=== PATIENT | female | born 1955 | race Caucasian/White ===

== ENCOUNTER 2024-07-27 19:04 | Outpatient (CLI) | payer MEDICARE, SELFPAY | END 2024-07-27 19:05 | disposition home or self-care (01) | LOC: AMB 08-10 08:31 | PROVIDERS: PCP Family Medicine; Visit Provider Family Medicine | DX: F10.129 Alcohol abuse with intoxication, unspecified (principal) | CPT/HCPCS: A0998 ==

== ENCOUNTER 2024-08-08 18:06 | Inpatient (IN) | payer MEDICARE, SELFPAY ==
--- OUTSIDE RECORDS SUMMARY | 2024-08-08 18:09 | XMS_ITS | Clinical Summary ---
Author Organization [facility] Address [address] [place] [id number] Care Team Providers Care Dispatcher Bus [employer] Trol[employer] Name Role Phone Nilam Hernandez RN, BSN Unavailable [phone] Edwige Robledo DO Primary Care Provider [phone] Allergies Active Allergy Reactions Criticality Noted Date Comments Banana Anaphylaxis High 11/13/2019 Erythromycin 10/24/2008 Cephalexin Nausea And Vomiting 03/05/2009 Latex Hives 01/14/2009 Oxycodone Nausea Only 11/13/2019 Penicillins Hives 01/25/2007 Peanut Oil Anaphylaxis High 11/13/2019 Tetanus And Diphther. Tox (Pf) Angioedema 01/14 Medications ASPIRIN 81 MG TAB take 1 tablet (81mg) by oral route once daily 0 7 Active blood-glucose meterIndications:D iabetes mellitus without complication (HC) Dispense meter, E11.9 NIDDM type II - Test 1 time/day 1 Device 7 Active blood sugar diagnostic (BLOOD GLUCOSE TEST) stripIndications:D iabetes mellitus without complication (HC) Dispense item covered by pt ins. E11.9 NIDDM type II - Test 1 time/day 100 box 3 7 Active WalkerIndications: Acute respiratory failure with hypoxia (HC) Walker with front wheels for home use. 1 Device 0 Active hydrocortisone (HYTONE) 2.5 % ointmentIndication s:Rash apply to affected area(s) by topical route twice daily. 20 g 1 1 Active albuterol HFA (PRO-AIR; VENTOLIN; PROVENTIL) 90 mcg/actuation inhalerIndications :Mild intermittent asthma without complication (HC) Inhale 2 Puffs by mouth every 4 hours if needed for Shortness of Breath 1st choice or Wheezing 1st choice. 18 g 1 4 Active magnesium oxide (MAG-OX 400) 400 mg tabletIndications: Low magnesium levels Take 1 Tablet (400 mg) by mouth once daily. 100 Tablet 2 4 Active amitriptyline (ELAVIL) 25 mg tabletIndications: Neuropathy Take 1 Tablet (25 mg) by mouth at bedtime. 90 Tablet 2 4 Active atorvastatin (LIPITOR) 20 mg tabletIndications: Mixed hyperlipidemia Take 1 Tablet (20 mg) by mouth once daily. 90 Tablet 2 4 Active FLUoxetine (PROZAC) 40 mg capsuleIndications :Anxiety Take 1 Capsule (40 mg) by mouth at bedtime. 90 Capsule 2 4 Active amLODIPine (NORVASC) 5 mg tabletIndications: Hypertension, essential Take 1 Tablet (5 mg) by mouth two times daily. 180 Tablet 4 Active lisinopriL (PRINIVIL; ZESTRIL) 5 mg tabletIndications: Microalbuminuria,H ypertension, essential Take 1 Tablet (5 mg) by mouth once daily. 60 Tablet 4 Active Active Problems Problem Noted Date Diagnosed Date Chronic obstructive pulmonar y disease, unspecified COPD type 07/21/2023 Chronic GERD 02/11/2021 Altered mental status 01/30/2020 CKD (chronic kidney disease) stage 3, GFR 30-59 ml/min 08/12/2017 Anxiety 10/24/2015 Squamous cell carcinoma of lungs, bilateral - st age 5 04/17/2015 Overview (07/15/2021): Diagnosis 2016 Cisplatin/gemcitabine Lost to follow up - saw oncology 2017 [id number] Lost to follow up CT abdomen with bowel wall thickening Summer 2019 CT chest/abd pelvis subcentimeter mesenteric nodes nonspecific Brain MRI and PET scan unremarkable Low magnesium levels 04/20/2013 Overview (07/15/2021): Mildly low 01/2020 Significantly low during hospitalization with acute respiratory failure s/p surgery for bowel obstruction Started Magnesium supplement (stopped taking) Stopped PPI Alcoholism 11/24/2011 Mixed hyperlipidemia 04/17/2010 Breast cancer 01/20/2009 Overview (03/05/2009): Right breast cancer, now S/P bilateral mastectomy 01/30/09, Infiltrating ductal carcinoma, ER, NE and HER-2/bushra neg, 0/12 nodes Unspecified essential hypertension 12/05/2008 Type II or unspecified type diabetes mellitus without mention of complication, not stated as uncontrolled 01/28/2006 Resolved Problems Problem Noted Date Diagnosed Date Resolved Date Small bowel obstruction 01/30/2020 03/2 05/2023 Overview (07/15/2021): Surgery 01/2020 at [facility] with acute respiratory failure post op with transfer to [facility] 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 - laparotomy with take down of adhesions at [facility] 11/2020 Acute respiratory failure 01/30/2020 Overview (07/15/2021): S/P surgery for SBO Alcohol abuse 12/10/2009 12/23/2009 Vitamin D deficiency 09/08/2009 010 Immunizations Immunization Administration Dates Next Due COVID-19 VACCINE SPIKEVAX (M ODERNA 50MCG/0.5ML) 12YO+ PFS 07/21/2023 COVID-19 vaccine (Panjiva-Bio NTech 30mcg/0.3mL) PF, MDV 08/05/2020 Hepatitis B (Adult) 11/21/2013,05/30/2013,2012 Influenza, High-dose Inactivated 01/10/2017 Influenza, IIV4 02/11/2021, 0,02/27/2018,2016 Pneumococcal Conj 20-valent (Prevnar 20) 07/21/2023 Pneumococcal Poly,23-Valent (Pneumovax) 02/11/2021 Zoster (Shingrix-RZV, recombinant) 02/27/2021 Zoster (Zostavax-ZVL, live) 04/20/2013 Family History Relation Name Status Comments Brother 1 following kidne y problems. on dialysis Brother 2 Alive heart surg age 39 Sister mi Social History Tobacco Use Types Packs/Day Years Used Date Smoking Tobacco: Former Cigarettes Q uit: 12/14/2014 Smokeless Tobacco: Never Tobacco Cessation:Counseling Given: Not Answered Comments:quit Alcohol Use Standard Drinks/Week Comments Not Currently 3 (1 standard drink = 0.6 oz pur e alcohol) minimal currently PHQ-2 Answer Date Recorded PHQ-2 TOTAL SCORE 2 07/21/2023 Social Connections Answer Date Recorded Do you often feel lonely or isolated from those around you? 0 07/21/2023 Financial Resource Strain Answer Date R ecorded Difficulty of Paying Living Expenses 3 07/21/2023 Difficulty of Paying Living Expenses Not on file 07/21/2023 Food Insecurity Answer Date Recorded Do you worry your food will run out before you are able to buy more? 1 07/21/2023 Transportation Needs Answer Date Record ed Does lack of transportation keep you from medica l appointments? 1 07/21/2023 Does lack of transportation keep you from work, meetings or getting things that you need? 1 07/21/2023 Housing Stability Answer Date Recorded What is your housing situation today? 1 07/21/2023 Utilities Answer Date Recorded Do you have trouble paying f or utilities (for example, heat, electricity, water, phone)? 1 07/21/2023 Comments No Sex and Gender Information Value Date Recorded Sex Assigned at Not on file Legal Sex Female 5:26 AM [employer] Gender Identity Not on file Sexual Orientation Not on file Obstetrics History Para Term AB IAB SAB Ectopic Multiple Livin g Live Births 4 3 1 1 3 Date Outcome GA Total Labor Labor/2nd/3rd Weight Sex Type Anes PTL Alla A1 A5 Name Clin Para Para Para SAB Last Filed Vital Signs Vital Sign Reading Time Taken Comments Blood Pressure 155/85 07/21/2023 10:33 AM CDT Pulse 94 07/21/2023 10:33 AM CDT Temperature 37.1 C (98.8 F) 12/03/2020 3:39 PM CDT Respiratory Rate 20 02/05/2020 8:00 AM CDT Oxygen Saturation 98% 07/21/2023 10:45 AM CDT Inhaled Oxygen Concentration - - Weight 55.3 kg (122 lb) 07/21/2023 10:33 AM CDT Height 154.1 cm (5' 0.67) 02/11/2021 1:28 PM CD T Body Mass Index 23.3 02/11/2021 1:28 PM CDT Plan of Treatment Health Maintenance Due Date Last Done Comments RSV vaccine for adults or (1 - Risk 60-74 years 1-dose series) 2016 Colonoscopy through age 75 08/26/202008/26 [facility] DEXA/DXA scan for age 65+ 2021 Medicare Wellness for age 65+ 2021 Zoster (shingles) series for age 50+ (3 of 3) 04/24/2021 02/27/2021, 04/20/2013 BMI (ht and wt on same day) for age 18+ 02/11/2022 02/11/2021, 09/21/2018, 02/27/2018, Additional history exists COVID-19 vaccine series ( season) 2024 07/21/2023, 03/02/2021, 08/26/2020, Additional history exists Depression screening for age 12+ 07/21/2024 07/22/2023, 07/21/2023, 02/11/2021, Additional history exists Lipids for age 45-75 07/20/2028 07/21/2023, 12/03/2020, 10/02/2019, Additional history exists Tetanus booster Discontinued 12/24/2009 (Postponed) Hepatitis C screening for ag e 18-79 Completed 12/03/2020 Pneumococcal series for age 50+ Completed 4, 02/11/2021 Procedures Procedure Name Priority Date/Time Associated Diagnosis Comments LIPID PANEL W REFLEX MEASURED LDL Routine 07/21/2023 11:58 AM CDT Mixed hyperlipidemia ANTI HCV Routine 12/03/2020 5:05 PM CDT Need for hepatitis C screening test from Last 3 Months or Most Recently Relevant to Health Maintenance Results * LIPID PANEL W REFLEX MEASURED LDL (07/21/2023 11:58 AM CDT) CHOLESTEROL,TOTAL 180 100 - 199 mg/dL 07/21/2023 9:40 PM CDT [facility] Comment: Cholesterol, Total Reference Ranges Desirable <200 mg/dL Borderline 200-239 mg/dL High >=240 mg/dL TRIGLYCERIDES 64 <150 mg/dL 07/21/2023 9:40 PM CDT [facility] HDL CHOLESTEROL 108 >40 mg/dL 9:40 PM CDT [facility] NON-HDL CHOLESTEROL 72 <145 mg/dl 07/21/2023 9:40 PM CDT [facility] CHOL/HDL RATIO 1.67 <4.50 07/21/2023 9:40 PM CDT [facility] LDL CHOLESTEROL 59 <=130 mg/dL 07/21/2023 9:40 PM CDT [facility] VLDL CHOLESTEROL 13 <=30 mg/dL 07/21/2023 9:40 PM CDT [facility] PROVIDER ORDERED STATUS RANDOM 07/21/2023 9:40 PM CDT [facility] Blood BLOOD SPECIMEN / Unknown Venipuncture / Unknown 07/21/2023 11:58 AM CDT 07/21/2023 12:00 PM CDT us Edwige Robledo DO CHEMISTRY Final Resu lt [facility] [address] [place] [id number], * ANTI HCV (12/03/2020 5:05 PM CDT) HEPATITIS C ANTIBODY Non-React cindy Non-React cindy 12/04/2020 2:54 PM CDT [facility] Comment:Antibodies to HCV no t detected; does not exclude the possibility of exposure to HCV. Blood BLOOD SPECIMEN / Unknown Butterfly / Unknown 12/03/2020 5:05 PM CDT 12/03/2020 5:14 PM CDT Marisol Fox MD SEND OUTS Final Result [facility] [address] [place] [address], from Last 3 Months or Most Recently Relevant to Health Maintenance Insurance [employer] CHO[employer] PPO MR * Guarantor: RUMA SAMANIEGO Account Type Relation to Patient Date of Phone Billing Address Confidential [address] [facility] [address] [place] [address] [facility] Advance Directives * Full Code (Latest Code Status on File) Date Activated Date Inactivated Comments 01/29/2020 7:08 PM 02/05/2020 2:20 PM Question Answer Comments Code Status Discussion: Not Discussed Care Teams Dispatcher [employer] And Trolley Relationship Specialty Start Date End Date Edwige Robledo DO [address] [place] [address] PCP - General Family Practice 07/21/23 Nilam Hernandez, RN, BSN [address] [place] [id number] Mid Level Net Developer Registered Nurse 01/28/15
[2024-08-08 18:24] VITALS: BP 131/82; PULSE 114; RESP 20; TEMP 36.6; O2SAT 96
--- NOTE | 2024-08-08 18:54 | CRLHL7_ITS ---
For Patients: As a result of the Cures Act, medical imaging exams and procedure reports are released immediately into your electronic medical record. You may view this report before your referring provider. If you have questions, please contact your health care provider. INDICATION: Fall, right wrist pain, injury TECHNIQUE: Wrist radiograph 3 views right COMPARISON: None FINDINGS: Bone: Fracture deformity of the ulnar styloid and distal ulna is present and is of indeterminate age. Moderate diffuse osteopenia is present. Joint: Mild osteoarthritis at the radiocarpal joint with chondrocalcinosis is seen. Soft tissue: Unremarkable. No radiopaque foreign bodies are seen. IMPRESSION: 1. Fracture deformity of the ulnar styloid and distal ulna is present and is of indeterminate age. Correlation with physical exam for focal tenderness in this region is recommended to exclude an acute fracture. Dictated by Juanjose Malagon MD @ 08/08/2024 8:28:41 PM Dictated by: Juanjose Malagon MD @ 08/08/2024 20:28:46 (Electronically Signed)
--- NOTE | 2024-08-08 18:54 | CRLHL7_ITS ---
For Patients: As a result of the Century Cures Act, medical imaging exams and procedure reports are released immediately into your electronic medical record. You may view this report before your referring provider. If you have questions, please contact your health care provider. INDICATION: Fall, right shoulder pain, injury TECHNIQUE: Shoulder radiograph 2 views right COMPARISON: None FINDINGS: Bone: Severe diffuse osteopenia is present. A nonunited fracture deformity of the distal clavicle is suspected. There is a suture anchor present in the superolateral humeral head. Joint: The glenohumeral joint is unremarkable. The acromioclavicular joint has mild osteoarthritis. Soft tissue: Unremarkable. Patchy airspace opacities are seen within the small right lung. No radiopaque foreign bodies are seen. IMPRESSIONS: 1. No acute osseous injuries or abnormalities are noted. 2. Patchy airspace opacities are seen within the small right lung. This can be better assessed by chest radiograph. Dictated by Juanjose Malagon MD @ 08/08/2024 8:20:51 PM Dictated by: Juanjose Malagon MD @ 08/08/2024 20:20:54 (Electronically Signed)
--- NOTE | 2024-08-08 18:54 | CRLHL7_ITS ---
For Patients: As a result of the Cures Act, medical imaging exams and procedure reports are released immediately into your electronic medical record. You may view this report before your referring provider. If you have questions, please contact your health care provider. INDICATION: Fall with right elbow pain COMPARISON: 10/26/2017 right elbow radiographs TECHNIQUE: Two radiographic view(s) of the right elbow. FINDINGS: Status post screw fixation of a old radial head fracture. No evidence of hardware complication. Large elbow joint effusion. Slight cortical irregularity at the anterior portion of the radial head and/or the coronoid process of the ulna could represent a acute nondisplaced fracture versus age indeterminate posttraumatic or postoperative change. Correlation is recommended with point tenderness on physical exam at this region. Moderate degenerative change of the elbow. IMPRESSION: Status post screw fixation of a old radial head fracture. No evidence of hardware complication. Large elbow joint effusion. Slight cortical irregularity at the anterior portion of the radial head and/or the coronoid process of the ulna could represent a acute nondisplaced fracture versus age indeterminate posttraumatic or postoperative change. Correlation is recommended with point tenderness on physical exam at this region. Further evaluation with CT may also be helpful if clinically warranted. There is moderate degenerative change of the elbow. Dictated by Saul Barrera MD @ 08/08/2024 8:32:43 PM (Electronically Signed)
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
[2024-08-08 19:55] LABS: Basophils Absolute Auto 0.04 K/uL (0.00-0.30); Basophils Percent Auto 0.6 % (0.0-3.0); Eosinophils Percent Auto 4.4 % (0.0-7.0); Hematocrit 29.1 % (33.0-51.0); Hemoglobin* 9.4 gm/dL (12.0-16.0); Immature Granulocytes Abs Auto 0.01 K/uL (0.00-0.30); Immature Granulocytes Pct Auto 0.1 %; Lymphocytes Absolute Auto 1.47 K/uL (0.90-2.90); Lymphocytes Percent Auto 21.4 % (20-44); Mean Corpuscular HGB Conc 32 gm/dL (32-36); Mean Corpuscular Hemoglobin 32 pg (26-34); Mean Corpuscular Volume 99 fL (80-100); Monocytes Percent Auto 7.1 % (0.0-11.0); Neutrophils Absolute Auto 4.57 K/uL (1.7-7.0); Neutrophils Percent Auto 66.4 % (42.0-72.0); Platelet Count* 245 K/uL (140-440); RDW Coefficient of Variation % 12.2 % (11.5-15.5); Red Blood Count 2.95 m/uL (4.00-5.20); White Blood Count* 6.88 K/uL (4.50-11.00)
[2024-08-08 19:56] LABS: Chloride* 101 mmol/L (96-114)
[2024-08-08 19:57] LABS: Potassium* 3.9 mmol/L (3.6-5.1); Sodium* 129 mmol/L (135-149)
[2024-08-08 19:59] LABS: Blood Urea Nitrogen* 18 mg/dL (7-30); Creatinine* 2.3 mg/dL (0.5-1.5); Estimated Glomerular Filt Rate 23 ml/min
[2024-08-08 20:00] LABS: Anion Gap 17 mEq/L (7-15); Calcium* 8.2 mg/dL (8.4-10.6); Carbon Dioxide* 11 mmol/L (20-32); Ethanol* 0.11 % (0.01-0.03); Glucose* 79 mg/dL (60-115)
[2024-08-08 20:04] LABS: Slide Review Reflex No
--- NOTE | 2024-08-08 20:22 | CRLHL7_ITS ---
For Patients: As a result of the Cures Act, medical imaging exams and procedure reports are released immediately into your electronic medical record. You may view this report before your referring provider. If you have questions, please contact your health care provider. INDICATION: Chest pain TECHNIQUE: Chest radiograph 2 views COMPARISON: 12/12/2020 FINDINGS: The sensitivity and specificity of the exam are moderately limited by the patient`s body habitus. Mediastinum: The mediastinum is normal in appearance. The heart silhouette is normal in size and morphology. Lung: Small lung volumes with diffuse interstitial and ground-glass infiltrates seen bilaterally. Increased density is present in the lateral right lung base. No sign of pleural effusion seen. No pneumothorax is identified. Bone and Soft tissue: Unremarkable for age. IMPRESSIONS: 1. Small lung volumes with diffuse interstitial and ground-glass infiltrates seen bilaterally. Findings are likely due to interstitial lung disease such as fibrosis. 2. Increased density is present in the lateral right lung base. These findings can be seen with atelectasis and/or pneumonia. Dictated by Juanjose Malagon MD @ 08/08/2024 9:34:27 PM Dictated by: Juanjose Malagon MD @ 08/08/2024 21:34:52 (Electronically Signed)
[2024-08-08 20:28] LABS: Albumin* 4.2 g/dL (3.3-5.0)
[2024-08-08 20:31] LABS: Alanine Aminotransferase* 15 U/L (4-35); Alkaline Phosphatase* 106 U/L (40-150); Aspartate Amino Transferase* 31 U/L (12-35); Bilirubin Direct* 0.6 mg/dL (0.0-0.5); Bilirubin Total* 0.6 mg/dL (0.1-1.5); Total Protein* 7.8 g/dL (6.0-8.3)
[2024-08-08 20:52] VITALS: BP 133/66; PULSE 87; RESP 18; TEMP 36.8; O2SAT 96
[2024-08-08] MEDS: 0.9 % SODIUM CHLORIDE 1000 ml 1,000 ML IV (21:14)
[2024-08-08] MEDS: MAGNESIUM OXIDE 400 MG TABLET PO (21:14)
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
[2024-08-08] MEDS: diphenhydrAMINE 50 MG/ML inj 25 MG IVP (22:11)
[2024-08-08 22:18] VITALS: BP 138/68; PULSE 77; RESP 18; O2SAT 95
[2024-08-08] MEDS: MAGNESIUM IV 2 GM/50 ML PIGGYBACK IVPB (22:40)
[2024-08-08] MEDS: 5 % DEXTROSE IN LAC RINGER'S 1,000 ML 125 ML IV (22:40)
[2024-08-09] VITALS (17 sets, daily range): BP systolic 130–186; BP diastolic 74–98; PULSE 74–97; RESP 18–22; TEMP 36.6–37.7; O2SAT 91–98
[2024-08-09 00:02] LABS: Iron* 59 ug/dL (37-170)
[2024-08-09 00:08] LABS: HCO3 VBG 13 mmol/L (21-28); PCO2 VBG 30 mmHG (40-50); pH VBG 7.253 (7.32-7.43)
[2024-08-09] MEDS: LORazepam 2 MG/ML inj 0.5 MG IVP ×2 (00:43→06:10)
[2024-08-09] MEDS: diphenhydrAMINE 50 MG/ML inj 25 MG IVP (02:53)
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
[2024-08-09] MEDS: 5 % DEXTROSE IN LAC RINGER'S 1,000 ML 125 ML IV ×2 (06:51→17:36)
[2024-08-09 06:59] LABS: HCO3 VBG 17 mmol/L (21-28); PCO2 VBG 33 mmHG (40-50); PO2 VBG 41.2 mmHG (25-47); pH VBG 7.314 (7.32-7.43)
[2024-08-09 07:03] LABS: Basophils Absolute Auto 0.03 K/uL (0.00-0.30); Basophils Percent Auto 0.6 % (0.0-3.0); Eosinophils Absolute Auto 0.28 K/uL (0.00-0.50); Eosinophils Percent Auto 5.6 % (0.0-7.0); Hematocrit 24.4 % (33.0-51.0); Immature Granulocytes Abs Auto 0.01 K/uL (0.00-0.30); Immature Granulocytes Pct Auto 0.2 %; Lymphocytes Percent Auto 18.5 % (20-44); Mean Corpuscular HGB Conc 32 gm/dL (32-36); Mean Corpuscular Hemoglobin 32 pg (26-34); Mean Corpuscular Volume 98 fL (80-100); Monocytes Percent Auto 7.2 % (0.0-11.0); Neutrophils Absolute Auto 3.37 K/uL (1.7-7.0); Neutrophils Percent Auto 67.9 % (42.0-72.0); Platelet Count* 210 K/uL (140-440); RDW Coefficient of Variation % 12.4 % (11.5-15.5); Red Blood Count 2.48 m/uL (4.00-5.20); White Blood Count* 4.97 K/uL (4.50-11.00)
[2024-08-09 07:08] LABS: Hemoglobin* 7.9 gm/dL (12.0-16.0); Slide Review Reflex No
[2024-08-09 07:13] LABS: Appearance Urine Clear (Clear); Bilirubin Urine Negative (Negative); Blood Urine 1+ (Negative); Color Urine Yellow (Yellow); Glucose Urine Negative (Negative); Ketones Urine Negative (Negative); Leukocyte Esterase Urine 1+ (Negative); Nitrite Urine Negative (Negative); Protein Urine 1+ (Negative); Specific Gravity Urine <= 1.005 (1.000-1.030); Urobilinogen Urine 0.2 (0.2-1.0); pH Urine 5.5 (5.0-8.5)
[2024-08-09 07:18] LABS: Albumin* 3.4 g/dL (3.3-5.0); Chloride* 108 mmol/L (96-114); Sodium* 133 mmol/L (135-149)
[2024-08-09 07:20] LABS: INR 1.08 (0.91-1.10); Prothrombin Time 14.9 Seconds
[2024-08-09 07:21] LABS: Alanine Aminotransferase* 14 U/L (4-35); Alkaline Phosphatase* 112 U/L (40-150); Anion Gap 10 mEq/L (7-15); Aspartate Amino Transferase* 24 U/L (12-35); Bilirubin Direct* 0.5 mg/dL (0.0-0.5); Bilirubin Total* 0.6 mg/dL (0.1-1.5); Blood Urea Nitrogen* 17 mg/dL (7-30); Carbon Dioxide* 15 mmol/L (20-32); Creatinine* 1.8 mg/dL (0.5-1.5); Est. Creatinine Clearance* 24.94; Estimated Glomerular Filt Rate 30 ml/min; Total Protein* 6.6 g/dL (6.0-8.3)
[2024-08-09 07:22] LABS: Calcium* 8.1 mg/dL (8.4-10.6); Glucose* 108 mg/dL (60-115); Phosphorus* 2.4 mg/dL (2.5-4.5)
[2024-08-09 07:23] LABS: Amphetamine Screen Urine Negative (Negative); Barbiturate Screen Urine Negative (Negative); Benzodiazepines Screen Urine Negative (Negative); Cannabinoid Screen Urine POSITIVE (Negative); Cocaine Screen Urine Negative (Negative); Methadone Screen Urine Negative (Negative); Methamphetamines Screen Urine Negative (Negative); Opiate Screen Urine Negative (Negative); Oxycodone Screen Urine Negative (Negative); Phencyclidine Screen Urine Negative (Negative); Tricyclic Antidepressant Urine POSITIVE (Negative)
[2024-08-09 07:24] LABS: C Reactive Protein* 4.9 mg/dL (0.5-1.0)
[2024-08-09 07:25] LABS: Bacteria Urine Moderate; Squamous Epithelial Cell Urine Moderate (None-Few)
[2024-08-09 07:35] LABS: NT Pro B Type NatriureticPept* 1110 pg/mL
[2024-08-09] MEDS: THIAMINE 250 MG in 0.9 % SODIUM CHLORIDE 100 ml 100 ML 102.5 MG IVPB ×3 (09:12→20:55)
[2024-08-09] MEDS: FOLIC ACID 1 MG TABLET PO (09:12)
[2024-08-09] MEDS: SODIUM CHLORIDE 1 GM TABLET PO ×3 (09:13→17:38)
[2024-08-09] MEDS: MULTIVITAMIN/MINERALS 1 TABLET 1 TAB PO (09:13)
[2024-08-09] MEDS: CETIRIZINE HCL 10 MG TABLET PO (10:36)
--- NOTE | 2024-08-09 12:43 | CRLHL7_ITS ---
For Patients: As a result of the Century Cures Act, medical imaging exams and procedure reports are released immediately into your electronic medical record. You may view this report before your referring provider. If you have questions, please contact your health care provider. INDICATION: Right elbow pain and swelling. TECHNIQUE: Noncontrast CT of the right elbow. COMPARISON: Radiographs from 08/08/2024. FINDINGS: Remote screw fixation of radial head. Screws appear intact. Prior radial head fracture is healed. There is a fracture of the coronoid process of the proximal ulna which demonstrates 4.5 millimeters of displacement on sagittal image number 19 of series 7. This may reflect more of a subacute fracture though as there does appear to be some partial healing of the fragment. An elbow joint effusion is present. There are elbow joint degenerative changes. IMPRESSION: 1. Fracture of the coronoid process of the proximal ulna with 4.5 mm displacement. This may reflect more of a subacute fracture though as there does appear to be some partial healing of the fragment. 2. Remote healed fracture of the radial head with intact hardware. 3. Elbow joint degenerative changes with elbow joint effusion. Please note that all CT scans at this facility use dose modulation, iterative reconstruction, and/or weight-based dosing when appropriate to reduce radiation dose to as low as reasonably achievable. Dictated by Wang Acosta MD @ 08/09/2024 3:43:01 PM (Electronically Signed)
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
[2024-08-09 14:10] LABS: Chloride* 109 mmol/L (96-114); Sodium* 133 mmol/L (135-149)
[2024-08-09 14:11] LABS: Potassium* 3.8 mmol/L (3.6-5.1)
[2024-08-09 14:13] LABS: Lactate Dehydrogenase* 194 U/L (120-246)
[2024-08-09 14:14] LABS: Anion Gap 12 mEq/L (7-15); Blood Urea Nitrogen* 16 mg/dL (7-30); Calcium* 8.4 mg/dL (8.4-10.6); Carbon Dioxide* 12 mmol/L (20-32); Creatinine* 1.8 mg/dL (0.5-1.5); Est. Creatinine Clearance* 24.94; Estimated Glomerular Filt Rate 30 ml/min; Glucose* 124 mg/dL (60-115)
[2024-08-09 14:36] LABS: Basophils Absolute Auto 0.02 K/uL (0.00-0.30); Basophils Percent Auto 0.4 % (0.0-3.0); Eosinophils Absolute Auto 0.25 K/uL (0.00-0.50); Hemoglobin* 8.6 gm/dL (12.0-16.0); Immature Granulocytes Abs Auto 0.04 K/uL (0.00-0.30); Immature Granulocytes Pct Auto 0.8 %; Lymphocytes Percent Auto 19.2 % (20-44); Mean Corpuscular HGB Conc 32 gm/dL (32-36); Mean Corpuscular Hemoglobin 32 pg (26-34); Mean Corpuscular Volume 99 fL (80-100); Monocytes Percent Auto 6.7 % (0.0-11.0); Neutrophils Absolute Auto 3.42 K/uL (1.7-7.0); Neutrophils Percent Auto 67.9 % (42.0-72.0); Platelet Count* 221 K/uL (140-440); RDW Coefficient of Variation % 12.3 % (11.5-15.5); Red Blood Count 2.73 m/uL (4.00-5.20); White Blood Count* 5.04 K/uL (4.50-11.00)
[2024-08-09 14:39] LABS: Slide Review Reflex No
[2024-08-09 14:42] LABS: Immature Reticulocyte Fraction 15.4 % (3.0-15.9); Reticulocyte Hemoglobin Equivi 30.8 pg (29.0-35.0); Reticulocyte Percent 1.6 % (0.5-2.0); Reticulocytes Absolute 0.04 # (0.03-0.08)
[2024-08-09 15:04] LABS: Vitamin B12* 434 pg/mL (243-894)
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
[2024-08-09] MEDS: OMEPRAZOLE 20 MG CAPSULE DR PO ×2 (16:29→20:57)
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
--- NOTE | 2024-08-09 18:12 | PC.NURSE ---
End of shift. pt has been pleasant. no pain. Alert and orientated x4. she is up with 1 assist. NPO and later she would be regular diet. Right arm is in a sling. Right arm is an restricted extremity due to hx of breast cancer. IV is patent. she is a fall risk and alarms are on. she worked with PT and OT.
[2024-08-09 19:12] LABS: Magnesium* 1.9 mg/dL (1.5-2.6)
[2024-08-09 19:13] LABS: Iron* 44 ug/dL (37-170)
[2024-08-09 19:23] LABS: Percent Iron Saturation 19 % (20-50); Total Iron Binding Capacity 230 ug/dL (265-497)
[2024-08-09] MEDS: ENOXAPARIN 30 MG/0.3ML INJ SUBCUT (20:57)
[2024-08-09] MEDS: ACETAMINOPHEN 650 MG TABLET ER 1300 MG PO (21:52)
[2024-08-09] MEDS: diphenhydrAMINE 25 MG CAPSULE PO (21:53)
[2024-08-09] MEDS: clonazePAM 0.5 MG TABLET PO (21:53)
[2024-08-10] VITALS (24 sets, daily range): BP systolic 114–199; BP diastolic 70–116; PULSE 72–92; RESP 18–24; TEMP 36.4–37.7; O2SAT 94–99
[2024-08-10] MEDS: 5 % DEXTROSE IN LAC RINGER'S 1,000 ML 125 ML IV (01:59)
[2024-08-10] MEDS: diphenhydrAMINE 25 MG CAPSULE PO ×3 (04:08→22:59)
--- NOTE | 2024-08-10 05:57 | PC.NURSE ---
[id number]: Patient cooperative with cares. A&Ox3. PRN Tylenol administered for pain. RLE splinted and in a soft cast. Patient refuses sling. Affected arm elevated on pillows. CIWAs unremarkable. Benadryl x2 for itching. NPO@0000 for possible ortho sx. Family updated at bedside.
[2024-08-10 06:36] LABS: Basophils Percent Auto 0.6 % (0.0-3.0); Eosinophils Percent Auto 6.4 % (0.0-7.0); Hematocrit 22.7 % (33.0-51.0); Immature Granulocytes Pct Auto 0.3 %; Lymphocytes Percent Auto 27.9 % (20-44); Mean Corpuscular HGB Conc 32 gm/dL (32-36); Mean Corpuscular Hemoglobin 32 pg (26-34); Mean Corpuscular Volume 99 fL (80-100); Monocytes Percent Auto 8.1 % (0.0-11.0); Neutrophils Percent Auto 56.7 % (42.0-72.0); Platelet Count* 195 K/uL (140-440); RDW Coefficient of Variation % 12.4 % (11.5-15.5); Red Blood Count 2.29 m/uL (4.00-5.20); White Blood Count* 3.59 K/uL (4.50-11.00)
[2024-08-10 06:40] LABS: Hemoglobin* 7.3 gm/dL (12.0-16.0); Slide Review Reflex No
[2024-08-10 06:48] LABS: Chloride* 110 mmol/L (96-114)
[2024-08-10] MEDS: ACETAMINOPHEN 650 MG TABLET ER 1300 MG PO ×2 (06:48→22:59)
[2024-08-10 06:49] LABS: Potassium* 3.5 mmol/L (3.6-5.1); Sodium* 133 mmol/L (135-149)
[2024-08-10 06:52] LABS: Anion Gap 5 mEq/L (7-15); Blood Urea Nitrogen* 14 mg/dL (7-30); Calcium* 7.8 mg/dL (8.4-10.6); Carbon Dioxide* 18 mmol/L (20-32); Creatinine* 1.6 mg/dL (0.5-1.5); Est. Creatinine Clearance* 28.56; Estimated Glomerular Filt Rate 35 ml/min; Glucose* 182 mg/dL (60-115)
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
[2024-08-10] MEDS: THIAMINE 250 MG in 0.9 % SODIUM CHLORIDE 100 ml 100 ML 102.5 MG IVPB (08:32)
[2024-08-10] MEDS: OMEPRAZOLE 20 MG CAPSULE DR PO ×2 (09:35→20:35)
[2024-08-10] MEDS: MAGNESIUM OXIDE 400 MG TABLET PO (09:35)
[2024-08-10] MEDS: POTASSIUM BICARB 25 MEQ EFFERVESCENT TAB 50 MEQ PO (09:35)
[2024-08-10] MEDS: FOLIC ACID 1 MG TABLET PO (09:36)
[2024-08-10] MEDS: MULTIVITAMIN/MINERALS 1 TABLET 1 TAB PO (09:36)
[2024-08-10] MEDS: SODIUM CHLORIDE 1 GM TABLET PO ×3 (09:36→17:15)
[2024-08-10] MEDS: CETIRIZINE HCL 10 MG TABLET PO (09:36)
[2024-08-10] MEDS: SODIUM CHLORIDE 0.9 % (FLUSH) 10 ML SYRINGE 5 ML IVF ×2 (09:37→20:35)
--- NOTE | 2024-08-10 10:33 | P.ORPN_ITS ---
Subjective Subjective Time Seen by Provider: 07:45 Date Seen: 08/10/24 Principal diagnosis: Right elbow Interval history: Bernie is resting comfortably in her bed. She c/o diffuse right wrist and right elbow pain. She is unable to localize her pain. Bernie is comfortable in her posterior splint, which was left in place during our visit this morning. Her sling is also not in place and patient reports she does not like wearing her sling. Pain is well managed with rest, ice and Tylenol PRN. Denies fever, chills, numbness/tingling distally. Right elbow surgical history includes: radial head ORIF (2018). Ortho Exam Narrative Exam Narrative: Patient is alert and oriented x3. No acute distress. Converses with nonlabored breathing. Posterior splint left in place. No signs of splint irritation. Swelling present right hand and digits. CMS intact distally with 2+ radial pulse. [place], warm digits with brisk capillary refill. Sensation confirmed distally. Const Vital Signs, click to edit/add: Vital Signs - 24 hr 08/09/24 11:29 08/09/24 15:30 08/09/24 15:38 Temperature 99.1 F 98.9 F Pulse Rate 82 Pulse Rate [Pulse Oximeter] 78 82 Pulse Rate [Right Radial] 82 Respiratory Rate 18 18 Blood Pressure [Left Arm] 153/75 H 186/98 H Pulse Oximetry 97 98 Oxygen Delivery Method Room Air Room Air 08/09/24 16:00 08/09/24 17:17 08/09/24 20:33 Temperature 98.9 F 99.9 F H Pulse Rate Pulse Rate [Pulse Oximeter] 82 82 96 Pulse Rate [Right Radial] 82 82 Respiratory Rate 18 18 18 Blood Pressure [Left Arm] 160/82 H 177/84 H Pulse Oximetry 98 98 Oxygen Delivery Method Room Air Room Air 08/09/24 20:37 08/09/24 22:47 08/09/24 22:48 Temperature 99.9 F H 99.1 F 99.1 F Pulse Rate Pulse Rate [Pulse Oximeter] 96 96 Pulse Rate [Right Radial] 92 Respiratory Rate 18 18 18 Blood Pressure [Left Arm] 177/84 H 132/76 132/76 Pulse Oximetry 98 96 96 Oxygen Delivery Method Room Air Room Air Room Air 08/09/24 22:54 08/10/24 03:44 08/10/24 04:00 Temperature 97.6 F 97.6 F Pulse Rate 97 Pulse Rate [Pulse Oximeter] 76 76 Pulse Rate [Right Radial] 92 Respiratory Rate 20 20 Blood Pressure [Left Arm] 118/70 118/70 Pulse Oximetry 98 98 Oxygen Delivery Method Room Air Room Air 08/10/24 07:45 08/10/24 07:46 08/10/24 07:58 Temperature 97.8 F Pulse Rate 77 Pulse Rate [Pulse Oximeter] 80 80 Pulse Rate [Right Radial] 80 80 Respiratory Rate 18 18 Blood Pressure [Left Arm] 144/73 H Pulse Oximetry 94 Oxygen Delivery Method Room Air 08/10/24 09:58 Temperature 97.8 F Pulse Rate Pulse Rate [Pulse Oximeter] 80 Pulse Rate [Right Radial] 80 Respiratory Rate 18 Blood Pressure [Left Arm] 144/73 H Pulse Oximetry 94 Oxygen Delivery Method Room Air Documenting provider has reviewed patient's vital signs: yes Assessment and Plan Assessment and plan (1) Fracture of right ulnar styloid: Status: Acute (2) Elbow fracture, right: Status: Acute Plan IMAGING: Right elbow CT was reviewed dated 08/09/24. This shows: - A subacute fracture of the coronoid process of the proximal ulna with a 4.5 mm displacement and signs of healing. - A healed fracture of the radial head with intact hardware. - Elbow joint degenerative changes with elbow joint effusion. 2-view right elbow images were reviewed from [facility] dated 08/08/24. These show: Status post screw fixation of a old radial head fracture. No evidence of hardware complication. Large elbow joint effusion. Slight cortical irregularity at the anterior portion of the radial head and/or the coronoid process of the ulna could represent a acute nondisplaced fracture versus age indeterminate posttraumatic or postoperative change. There is moderate degenerative change of the elbow. 3-view right wrist images were reviewed from [facility] dated 08/08/24. These show: Fracture deformity of the ulnar styloid and distal ulna is present and is of indeterminate age. PLAN: Bernie's coronoid process fracture and distal ulna and ulnar styloid fracture may be treated non-operatively. Bernie will remain in her posterior splint 3-4 days. At that time, she will transition into a sling, which she will wear daily x 1 week, however I'd like Bernie to remove this sling to work on elbow motion as tolerated 3-5x/day. She will likely require outpatient OT. Bernie would also benefit from a right wrist brace after splint removal. For swelling reduction, I recommend rest, elevation and massaging edema proximally within her right fingers/hand. For pain management, I recommend rest, ice, Ibuprofen and/or Tylenol PRN. Bernie will follow-up with myself in 2 weeks for clinical re- evaluation. All questions were answered. Phone Orthopedics with any questions or concerns. Total Time Spent Total time spent: 20 minutes.
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
[2024-08-10 13:10] LABS: Folate, Serum >22.3 ng/mL (>=5.9)
--- NOTE | 2024-08-10 14:36 | PC.NURSE ---
End of shift. pt is still pleasant. no pain. some itching and she got meds for it. Alert and orientated x4. she is up with 1 assist. regular diet. she is eating drinking and voiding. will check resduial urine after next void,. Right arm is in a sling. Right arm is an restricted extremity due to hx of breast cancer. SL went bad and after a few attempts QUARRY MANAGER was able to start a SL in the left a/c. she is getting blood and doing a BP on her leg. . she is a fall risk and alarms are on. she worked with PT and OT.
--- NOTE | 2024-08-10 16:13 | PC.SOCIAL ---
Discharge planning: fabric worker foreman provided pt with an updated list of A.A. meetings in [place] per her request. fabric worker foreman also talked to the pt about going to a long term for short-term rehab after the hospital. Pt is willing to go to short-term rehab after the hospital. Pt has [employer] for insurance which only contracts with certain custodial facilities. fabric worker foreman left a message with Meghana in admissions at [facility] in [place] to see if they contract with [employer] and if so, do they have female short-term rehab beds available next week. Pt also okay'd this social work assistant to send a referral to [facility] and [facility] which are both [facility] and they both contract with [employer] insurance and may have openings next week. Social work to follow-up as needed.
[2024-08-10 17:28] LABS: Fecal Occult Blood* Negative (Negative)
[2024-08-10] MEDS: THIAMINE 100 MG TABLET PO (20:35)
[2024-08-10 21:38] LABS: Folate, RBC 872 ng/mL (>=366)
[2024-08-10] MEDS: clonazePAM 0.5 MG TABLET PO (22:59)
[2024-08-11] VITALS (11 sets, daily range): BP systolic 151–189; BP diastolic 78–94; PULSE 74–88; RESP 18–22; TEMP 36.6–37.2; O2SAT 93–99
[2024-08-11 05:03] LABS: Basophils Absolute Auto 0.03 K/uL (0.00-0.30); Basophils Percent Auto 0.6 % (0.0-3.0); Eosinophils Percent Auto 7.5 % (0.0-7.0); Hemoglobin* 9.4 gm/dL (12.0-16.0); Immature Granulocytes Abs Auto 0.01 K/uL (0.00-0.30); Immature Granulocytes Pct Auto 0.2 %; Lymphocytes Absolute Auto 1.19 K/uL (0.90-2.90); Lymphocytes Percent Auto 24.9 % (20-44); Mean Corpuscular HGB Conc 32 gm/dL (32-36); Mean Corpuscular Hemoglobin 31 pg (26-34); Mean Corpuscular Volume 97 fL (80-100); Monocytes Percent Auto 5.7 % (0.0-11.0); Neutrophils Absolute Auto 2.91 K/uL (1.7-7.0); Neutrophils Percent Auto 61.1 % (42.0-72.0); Platelet Count* 211 K/uL (140-440); RDW Coefficient of Variation % 13.1 % (11.5-15.5); White Blood Count* 4.77 K/uL (4.50-11.00)
[2024-08-11 05:05] LABS: HCO3 VBG 20 mmol/L (21-28); Ionized Calcium* 1.09 mmol/L (1.11-1.30); PCO2 VBG 37 mmHG (40-50); PO2 VBG 40.3 mmHG (25-47)
[2024-08-11 05:17] LABS: Chloride* 108 mmol/L (96-114); Potassium* 4.2 mmol/L (3.6-5.1); Sodium* 133 mmol/L (135-149)
[2024-08-11 05:19] LABS: Blood Urea Nitrogen* 16 mg/dL (7-30); Creatinine* 1.6 mg/dL (0.5-1.5); Estimated Glomerular Filt Rate 35 ml/min; Slide Review Reflex No
[2024-08-11 05:20] LABS: Anion Gap 7 mEq/L (7-15); Calcium* 7.9 mg/dL (8.4-10.6); Carbon Dioxide* 18 mmol/L (20-32); Glucose* 86 mg/dL (60-115); Magnesium* 1.1 mg/dL (1.5-2.6)
--- NOTE | 2024-08-11 05:25 | PC.NURSE ---
[id number]: Patient pleasant and cooperative. Elevated BP. MD aware, no new orders. A1/walker/GB. Showing increased strength since last shift with patient. CIWAs unremarkable. PRN Tylenol and elevation for pain management. Eating and voiding.
[2024-08-11 05:33] LABS: Hemoglobin A1C* 4.5 % (0-5.6)
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
[2024-08-11] MEDS: SODIUM CHLORIDE 0.9 % (FLUSH) 10 ML SYRINGE 5 ML IVF ×2 (09:09→21:07)
[2024-08-11] MEDS: MAGNESIUM IV 2 GM/50 ML PIGGYBACK IVPB (09:09)
[2024-08-11] MEDS: THIAMINE 100 MG TABLET PO ×3 (10:56→20:57)
[2024-08-11] MEDS: OMEPRAZOLE 20 MG CAPSULE DR PO ×2 (10:56→20:57)
[2024-08-11] MEDS: MULTIVITAMIN/MINERALS 1 TABLET 1 TAB PO (10:56)
[2024-08-11] MEDS: MAGNESIUM OXIDE 400 MG TABLET PO ×2 (10:56→20:57)
[2024-08-11] MEDS: FOLIC ACID 1 MG TABLET PO (10:57)
[2024-08-11] MEDS: CETIRIZINE HCL 10 MG TABLET PO (10:57)
[2024-08-11] MEDS: AMLODIPINE 5 MG TABLET PO ×2 (12:20→20:57)
[2024-08-11] MEDS: SODIUM CHLORIDE 1 GM TABLET PO ×2 (12:21→18:15)
[2024-08-11] MEDS: ACETAMINOPHEN 650 MG TABLET ER 1300 MG PO (18:19)
[2024-08-11] MEDS: ATORVASTATIN CALCIUM 10 MG TABLET 20 MG PO (20:57)
[2024-08-11] MEDS: FAMOTIDINE 20 MG TABLET PO (20:57)
[2024-08-11] MEDS: clonazePAM 0.5 MG TABLET PO (20:57)
[2024-08-11] MEDS: AMITRIPTYLINE 25 MG TABLET PO (20:58)
[2024-08-11] MEDS: diphenhydrAMINE 25 MG CAPSULE PO (22:41)
--- NOTE | 2024-08-11 23:22 | PC.NURSE ---
Patient continues to complain of pain in right arm. Arm is in a soft cast with a sling. Patient is complaint with elevating it. Her pain was effectively managed by PRN Tylenol. CIWA negative this shift. BP alittle bit elevated however patient has scheduled BP medication. Other vital signs stable. Family at bedside, family was concerned about patient's IV morphine order. Requesting that it be changed to something oral. RN notified MD about the family's concerns.
[2024-08-12 03:00] VITALS: RESP 20
[2024-08-12] MEDS: ACETAMINOPHEN 650 MG TABLET ER 1300 MG PO (05:23)
[2024-08-12 05:48] LABS: Ionized Calcium* 1.14 mmol/L (1.11-1.30)
[2024-08-12 05:49] LABS: Basophils Percent Auto 0.5 % (0.0-3.0); Eosinophils Percent Auto 9.1 % (0.0-7.0); Hemoglobin* 10.9 gm/dL (12.0-16.0); Immature Granulocytes Pct Auto 0.7 %; Mean Corpuscular HGB Conc 32 gm/dL (32-36); Mean Corpuscular Hemoglobin 31 pg (26-34); Mean Corpuscular Volume 97 fL (80-100); Monocytes Percent Auto 5.7 % (0.0-11.0); Platelet Count* 253 K/uL (140-440); RDW Coefficient of Variation % 13.2 % (11.5-15.5); White Blood Count* 4.19 K/uL (4.50-11.00)
[2024-08-12 05:50] LABS: Slide Review Reflex No
--- NOTE | 2024-08-12 05:51 | PC.NURSE ---
[id number]: Patient pleasant and cooperative. A&Ox3. PRN Tylenol for pain relief. Benadryl x1 for itching. A1/walker. R. arm in soft cast C/D/I. Appeared to sleep well during noc. Eating and voiding.
[2024-08-12 06:13] LABS: Chloride* 107 mmol/L (96-114); Potassium* 4.4 mmol/L (3.6-5.1); Sodium* 136 mmol/L (135-149)
[2024-08-12 06:14] LABS: Albumin* 3.6 g/dL (3.3-5.0)
[2024-08-12 06:16] LABS: Anion Gap 9 mEq/L (7-15); Blood Urea Nitrogen* 19 mg/dL (7-30); Calcium* 8.6 mg/dL (8.4-10.6); Carbon Dioxide* 20 mmol/L (20-32); Creatinine* 1.6 mg/dL (0.5-1.5); Est. Creatinine Clearance* 28.05; Estimated Glomerular Filt Rate 35 ml/min; Glucose* 95 mg/dL (60-115); Magnesium* 1.7 mg/dL (1.5-2.6)
[2024-08-12 06:17] LABS: Alanine Aminotransferase* 13 U/L (4-35); Alkaline Phosphatase* 154 U/L (40-150); Aspartate Amino Transferase* 30 U/L (12-35); Bilirubin Direct* 0.5 mg/dL (0.0-0.5); Bilirubin Total* 0.5 mg/dL (0.1-1.5)
[2024-08-12 07:45] VITALS: BP 152/84; PULSE 78; RESP 16; TEMP 36.7; O2SAT 96
[2024-08-12] MEDS: MAGNESIUM OXIDE 400 MG TABLET PO ×2 (09:39→21:56)
[2024-08-12] MEDS: SODIUM CHLORIDE 1 GM TABLET PO ×3 (09:40→18:53)
[2024-08-12] MEDS: AMLODIPINE 5 MG TABLET PO ×2 (09:40→21:58)
[2024-08-12] MEDS: CETIRIZINE HCL 10 MG TABLET PO (09:40)
[2024-08-12] MEDS: OMEPRAZOLE 20 MG CAPSULE DR PO ×2 (09:40→22:01)
[2024-08-12] MEDS: FAMOTIDINE 20 MG TABLET PO ×2 (09:40→21:59)
[2024-08-12] MEDS: THIAMINE 100 MG TABLET PO ×3 (09:40→21:57)
[2024-08-12] MEDS: FLUOXETINE HCL 20 MG CAPSULE 40 MG PO (09:40)
[2024-08-12] MEDS: SODIUM CHLORIDE 0.9 % (FLUSH) 10 ML SYRINGE 5 ML IVF ×2 (09:41→22:04)
[2024-08-12] MEDS: MULTIVITAMIN/MINERALS 1 TABLET 1 TAB PO (09:41)
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
[2024-08-12] MEDS: FOLIC ACID 1 MG TABLET PO (10:00)
[2024-08-12 11:00] VITALS: BP 161/94; PULSE 87; RESP 16; TEMP 36.9; O2SAT 97
[2024-08-12] MEDS: ACETAMINOPHEN 325 MG TABLET 975 MG PO ×2 (13:34→21:56)
[2024-08-12 15:00] VITALS: BP 177/116; PULSE 83; RESP 18; TEMP 37; O2SAT 97
--- NOTE | 2024-08-12 18:21 | PC.NURSE ---
Per request from patient's son and daughter, pt was asked when stepped out of room if she wanted to be here. Pt stated that she did want her here with her. Son was contacted via telephone and informed of pt's response.
--- NOTE | 2024-08-12 18:22 | PC.NURSE ---
Numerous family members were at the bedside this afternoon and loud voices were heard with the door closed. After, this was noticed, The family was politely asked to leave.
[2024-08-12 19:00] VITALS: BP 168/94; PULSE 84; RESP 17; TEMP 36.6; O2SAT 100
--- NOTE | 2024-08-12 19:27 | PC.NURSE ---
The patient is pleasant and cooperative with cares, rates pain at a tolerable level, controlled with Tylenol. The patients is present at the bedside throughout the day. SBA to Restroom with 4wrw. Call light within reach. Lo WALKER BSN
[2024-08-12] MEDS: ATORVASTATIN CALCIUM 10 MG TABLET 20 MG PO (21:56)
[2024-08-12] MEDS: clonazePAM 0.5 MG TABLET PO (21:59)
[2024-08-12] MEDS: diphenhydrAMINE 25 MG CAPSULE PO (21:59)
[2024-08-12] MEDS: AMITRIPTYLINE 25 MG TABLET PO (22:01)
[2024-08-12 22:06] VITALS: BP 160/101; PULSE 81; RESP 20; TEMP 36.8; O2SAT 97
[2024-08-13 01:55] VITALS: BP 147/96; PULSE 83; RESP 17; TEMP 36.6; O2SAT 97
[2024-08-13] MEDS: ACETAMINOPHEN 325 MG TABLET 975 MG PO ×2 (06:21→13:28)
[2024-08-13 06:43] LABS: Basophils Percent Auto 0.8 % (0.0-3.0); Eosinophils Percent Auto 9.6 % (0.0-7.0); Hematocrit 33.2 % (33.0-51.0); Hemoglobin* 10.7 gm/dL (12.0-16.0); Immature Granulocytes Pct Auto 0.3 %; Lymphocytes Percent Auto 29.2 % (20-44); Mean Corpuscular HGB Conc 32 gm/dL (32-36); Mean Corpuscular Hemoglobin 31 pg (26-34); Mean Corpuscular Volume 97 fL (80-100); Monocytes Percent Auto 7.1 % (0.0-11.0); Platelet Count* 240 K/uL (140-440); RDW Coefficient of Variation % 13.1 % (11.5-15.5); Red Blood Count 3.42 m/uL (4.00-5.20); White Blood Count* 3.94 K/uL (4.50-11.00)
[2024-08-13 06:44] LABS: Slide Review Reflex No
--- NOTE | 2024-08-13 06:50 | PC.NURSE ---
Shift note ([id number]): Patient pleasant, alert and oriented. Stand by assist with 4-wheeled rolling walker. ?C/O pain in right arm with movement this morining. Given Scheduled Tylenol at that time.?
[2024-08-13 06:58] LABS: Chloride* 108 mmol/L (96-114); Potassium* 4.1 mmol/L (3.6-5.1); Sodium* 136 mmol/L (135-149)
[2024-08-13 07:00] VITALS: BP 144/76; PULSE 74; RESP 18; TEMP 36.5; O2SAT 96
[2024-08-13 07:01] LABS: Anion Gap 9 mEq/L (7-15); Calcium* 8.6 mg/dL (8.4-10.6); Carbon Dioxide* 19 mmol/L (20-32); Glucose* 85 mg/dL (60-115); Magnesium* 1.3 mg/dL (1.5-2.6)
[2024-08-13 07:13] LABS: Blood Urea Nitrogen* 18 mg/dL (7-30); Creatinine* 1.6 mg/dL (0.5-1.5); Est. Creatinine Clearance* 28.12; Estimated Glomerular Filt Rate 35 ml/min
--- NOTE | 2024-08-13 07:41 | PC.NURSE ---
End of shift ([id number]) note continued: Patient's BPs elevated at 168/94, 160/101 and 147/[address] Cárdenas updated at this time.
[2024-08-13] MEDS: MAGNESIUM IV 2 GM/50 ML PIGGYBACK IVPB (08:21)
[2024-08-13] MEDS: FLUOXETINE HCL 20 MG CAPSULE 40 MG PO (08:34)
[2024-08-13] MEDS: AMLODIPINE 5 MG TABLET PO (08:34)
[2024-08-13] MEDS: lisinopriL 5 MG TABLET PO (08:34)
[2024-08-13] MEDS: FOLIC ACID 1 MG TABLET PO (08:34)
[2024-08-13] MEDS: THIAMINE 100 MG TABLET PO ×2 (08:34→13:29)
[2024-08-13] MEDS: SODIUM CHLORIDE 1 GM TABLET PO ×2 (08:35→12:05)
[2024-08-13] MEDS: FAMOTIDINE 20 MG TABLET PO (08:35)
[2024-08-13] MEDS: CETIRIZINE HCL 10 MG TABLET PO (08:38)
[2024-08-13] MEDS: OMEPRAZOLE 20 MG CAPSULE DR PO (08:38)
[2024-08-13] MEDS: MAGNESIUM OXIDE 400 MG TABLET 800 MG PO ×2 (08:38→13:29)
[2024-08-13] MEDS: SODIUM CHLORIDE 0.9 % (FLUSH) 10 ML SYRINGE 5 ML IVF (08:38)
[2024-08-13] MEDS: MULTIVITAMIN/MINERALS 1 TABLET 1 TAB PO (08:38)
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
[2024-08-13 11:00] VITALS: BP 142/78; PULSE 96; RESP 16; TEMP 36.9; O2SAT 98
--- NOTE | 2024-08-13 11:06 | PC.SOCIAL ---
Discharge planning: Pt is no longer in need of short-term rehab and will be discharging home today with her . Pt also stated several times to staff here that she does not want hospital staff reaching out or giving any information to her children. Social work to follow-up as needed.
--- NOTE | 2024-08-13 14:41 | PC.NURSE ---
Pt discharged at 1437 via wheelchair, accompanied by . Back to home. IV removed. Discharge forms signed. Pain controlled, Pt in good condition.
== END 2024-08-13 14:37 | disposition home or self-care (01) | DRG 923 ==
LOC: ED 21:58 → MEDSURG 22:28
PROVIDERS: Family Medicine; Admitting Provider Family Medicine; Emergency Provider Student in an Organized Health Care Education/Training Program; PCP Family Medicine; Visit Provider Family Medicine
DX: T74.11XA Adult physical abuse, confirmed, initial encounter (principal); S42.401A Unspecified fracture of lower end of right humerus, initial encounter for closed fracture; E87.1 Hypo-osmolality and hyponatremia; N17.9 Acute kidney failure, unspecified; E87.21 Acute metabolic acidosis; N18.4 Chronic kidney disease, stage 4 (severe); S52.611A Displaced fracture of right ulna styloid process, initial encounter for closed fracture; S52.041A Displaced fracture of coronoid process of right ulna, initial encounter for closed fracture; Y04.2XXA Assault by strike against or bumped into by another person, initial encounter; Y07.010 Husband, current, perpetrator of maltreatment and neglect; Y93.E1 Activity, personal bathing and showering; Y92.002 Bathroom of unspecified non-institutional (private) residence as the place of occurrence of the external cause; F10.229 Alcohol dependence with intoxication, unspecified; Y90.5 Blood alcohol level of 100-119 mg/100 ml; Z63.72 Alcoholism and drug addiction in family; E83.42 Hypomagnesemia; D53.8 Other specified nutritional anemias; D63.1 Anemia in chronic kidney disease; I12.9 Hypertensive chronic kidney disease with stage 1 through stage 4 chronic kidney disease, or unspecified chronic kidney disease; J44.9 Chronic obstructive pulmonary disease, unspecified; Z87.891 Personal history of nicotine dependence; L29.9 Pruritus, unspecified; Z90.13 Acquired absence of bilateral breasts and nipples; Z87.19 Personal history of other diseases of the digestive system; Z85.3 Personal history of malignant neoplasm of breast; Z85.110 Personal history of malignant carcinoid tumor of bronchus and lung
CPT/HCPCS: 36415; 36430; 51798; 71046; 73030; 73070; 73110; 73200; 80048; 80069; 80076; 80306; 81001; 81003; 82077; 82270; 82330; 82607; 82728; 82746; 82747; 82803; 83036; 83540; 83550; 83605; 83615; 83735; 83880; 84443; 85025; 85045; 85610; 86140; 86850; 86900; 86901; 86922; 87086; 97110; 97116; 97161; 97165; 97530; 97535; 99284; 99285; A4565; A9153; A9270; J1200; J1650; J2060; J3411; J3475; J7030; P9016

== ENCOUNTER 2024-08-28 12:21 | Outpatient (CLI) | payer MEDICARE, SELFPAY ==
--- NOTE | 2024-08-28 14:00 | CT_ITS ---
Patient: RUMA CAMPBELL Facility:?[facility] Patient ID:?[id number] Site Patient ID:?[id number]. Site :?[id number] Study:?CT-Chest/Abd/Pelvis WITH 57 CC ISOVUE 370-08/28/2024 2:17:30 PM Ordering Physician:Violetta Alejo Final Report: INDICATION: History of breast and lung cancer, follow-up TECHNIQUE: CT chest, abdomen and pelvis acquired with 57 cc Isovue 370 IV contrast. COMPARISON: CT chest abdomen and pelvis 12/07/2020 FINDINGS: CHEST Lungs and pleura: Progressed subpleural predominant reticulation and ground- glass, asymmetrically involving the upper and lower right lung. No suspicious nodules. No effusions, thickening, or pneumothorax. Heart and vasculature: Heart size is normal. Thoracic aorta and pulmonary artery are normal in caliber. Moderate coronary artery calcifications. Lymph node/mediastinum: No pathologic mediastinal, hilar, or axillary adenopathy. Unchanged prominent bilateral axillary lymph nodes with normal morphology. Stable top-normal right pretracheal lymph node measuring 0.9 cm. Increased subcarinal lymph node measuring 1 cm (2/38), previously 0.8 cm Chest wall: Bilateral breast implants. Bones: No suspicious bone lesions. Postsurgical changes of the right humeral head. Healed bilateral rib fractures and left inferior scapular fracture. Subacute appearing fracture of the left posterior 11th rib. ABDOMEN AND PELVIS: Liver: Normal in caliber and attenuation. No masses. Focal fatty deposition along the falciform ligament Gallbladder and bile ducts: Prior cholecystectomy. Pancreas: Unremarkable. Spleen: Normal in caliber. No masses. Adrenal glands: Unremarkable. No masses. Kidneys: Normal in caliber. No suspicious masses. GI tract: Postsurgical changes of the right colon with patent anastomosis. The bowel is normal in caliber and appearance. No sign of mass or inflammation. Vasculature: Unremarkable. Mesenteric arteries are patent. Subtle irregular areas of hypoattenuation within the superior mesenteric vein are favored secondary to mixing artifact. Lymph nodes: No lymphadenopathy. Omentum/peritoneum/retroperitoneum/abdominal wall: No masses or infiltration. No free air or significant free fluid. Pelvic organs: Unremarkable. Bones: Age-indeterminate, although chronic appearing, compression deformity of L1. This finding is new compared to CT from 2020. Multilevel degenerative change of the spine. IMPRESSION: 1. No definite evidence of metastatic disease in the chest abdomen and pelvis. Slightly increased subcarinal lymph node, and additional stable prominent scattered mediastinal and axillary lymph nodes are nonspecific and possibly reactive. 2. Progressed pulmonary fibrosis, asymmetrically involving the right lung. 3. Subacute appearing left posterior 11th rib fracture. Multiple interval, although chronic appearing, bilateral rib, left inferior scapular, and L1 fractures. Please note that all CT scans at this facility use dose modulation, iterative reconstruction, and/or weight-based dosing when appropriate to reduce radiation dose to as low as reasonably achievable. Dictated by Jocy Diallo MD @ 08/30/2024 8:47:20 AM (Electronic Signature)
== END 2024-08-28 12:22 | disposition home or self-care (01) ==
PROVIDERS: PCP Family Medicine; Visit Provider Internal Medicine Hematology & Oncology
DX: C34.32 Malignant neoplasm of lower lobe, left bronchus or lung (principal); J84.10 Pulmonary fibrosis, unspecified; C50.919 Malignant neoplasm of unspecified site of unspecified female breast; M48.56XA Collapsed vertebra, not elsewhere classified, lumbar region, initial encounter for fracture; M84.48XA Pathological fracture, other site, initial encounter for fracture
CPT/HCPCS: 71260; 74177; Q9967

== ENCOUNTER 2024-09-18 09:55 | Outpatient (CLI) | payer MEDICARE, SELFPAY ==
--- NOTE | 2024-09-18 10:15 | CRLHL7_ITS ---
For Patients: As a result of the Century Cures Act, medical imaging exams and procedure reports are released immediately into your electronic medical record. You may view this report before your referring provider. If you have questions, please contact your health care provider. INDICATION: Lung cancer. TECHNIQUE: Brain MRI with and without contrast. 15 cc of Dotarem gadolinium based intravenous contrast administered. COMPARISON: Brain MRI from 11/13/2019. FINDINGS: No evidence of acute ischemia. No evidence of acute or chronic intracranial blood products. No mass or pathologic intracranial enhancement. Patchy FLAIR hyperintensities within the deep/periventricular supratentorial white matter and brainstem, typical for chronic microvascular ischemic change. Moderate generalized parenchymal volume loss. No hydrocephalus or extra-axial collections. The pituitary gland, parasellar structures and optic chiasm are normal. Posterior fossa is normal. All the major intracranial vascular structures demonstrate normal flow-related signal. The orbital contents are normal. No calvarial or skull base marrow signal abnormality. No obstructive sinus disease. No extracranial soft tissue findings. IMPRESSION: 1. No acute infarction or other acute intracranial pathology. 2. No mass or pathologic intracranial enhancement. 3. Glng-ar-eczoozob chronic microvascular ischemic changes and moderate generalized parenchymal volume loss. Dictated by Yifan Wright MD @ 09/18/2024 3:36:38 PM (Electronically Signed)
== END 2024-09-18 09:56 | disposition home or self-care (01) ==
LOC: MRI 09:56
PROVIDERS: PCP Family Medicine; Visit Provider Internal Medicine Hematology & Oncology
DX: C34.32 Malignant neoplasm of lower lobe, left bronchus or lung (principal); I67.82 Cerebral ischemia; C50.919 Malignant neoplasm of unspecified site of unspecified female breast
CPT/HCPCS: 70553; A9575

== ENCOUNTER 2024-09-20 14:04 | Outpatient (CLI) | payer MEDICARE, SELFPAY ==
--- NOTE | 2024-09-20 14:30 | CRLHL7_ITS ---
For Patients: As a result of the 21st Century Cures Act, medical imaging exams and procedure reports are released immediately into your electronic medical record. You may view this report before your referring provider. If you have questions, please contact your health care provider. 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 Remote history of right-sided breast cancer (2008) with prior bilateral mastectomies. Patient is referred for further characterization. TECHNIQUE: Radiopharmaceutical: 13.5 mCi of 18F-FDG Intravenous injection site: Left hand Uptake time: 67 minutes Blood glucose level at the time of injection: 63 mg/dL Field of view: Skull base to mid-thighs CT protocol: The low-dose, free-breathing, noncontrast CT performed as part of this study is designed for the purposes of attenuation correction and lesion localization, and it is neither sufficient, nor it should be substituted for diagnostic purposes. COMPARISON: CT chest abdomen pelvis 08/28/2024 and 12/07/2020. PET-CT 11/22/2019 FINDINGS: Physiologic background liver standardized uptake value (SUV mean and SUV max) reported for comparison between PET studies: 2.9 and 3.6. Visualized head and neck: Senescent changes in the brain and posterior fossa with no abnormal uptake. No enlarged or hypermetabolic cervical chain lymph nodes. Lungs: Respiratory motion artifact. No measurable hypermetabolic lung nodules. Progressive bilateral areas of parenchymal and peripheral/subpleural reticular opacities most pronounced throughout the right upper lobe, anterior right middle lobe, superior segment right lower lobe and left upper lobe. For example: Anterior inferior right middle lobe reticular opacity, SUV max 3.0 (fused image 91). Right upper lobe parenchymal opacity with air bronchograms, SUV max 3.8 (fused image 78). Superior segment right lower lobe reticular opacity, SUV max 2.7. Attention on imaging follow-up. Few micro nodules without uptake too small to characterize. Thoracic lymph nodes: More conspicuous paratracheal, subcarinal and bilateral axillary lymph nodes with variable uptake compared to prior PET-CT. For example: Lower right paratracheal lymph node, 0.5 cm short axis, SUV max 2.4 (fused image 84). Previously 1.8. Subcarinal lymph node 0.7 cm short axis, SUV max 2.8 (fused image 93). Previously 1.2. Right axillary lymph node, 0.6 cm short axis, SUV max 4.4 (fused image 78).. Left axillary lymph node, 0.5 cm short axis, SUV max 4.6 (fused image 78). Other chest findings:Scattered diffuse coronary vascular calcifications. Prior bilateral mastectomies with intact though less well distended bilateral breast implants. Small hiatal hernia. -generalized esophageal uptake with no localized abnormality on noncontrast CT is nonspecific, possibly reactive/inflammatory or related to reflux. Hepatobiliary: No measurable tracer avid liver lesions. Prior cholecystectomy. Spleen: No abnormal uptake. No splenomegaly. Pancreas: No abnormal uptake. No adjacent inflammatory change. Adrenal glands: Similar bilateral adrenal configuration. No abnormal uptake. Kidneys and bladder: No abnormal uptake or obstruction. Partially distended bladder. Bowel and peritoneum: Prior laparotomy with postsurgical changes involving the right colon including a patent anastomosis in the right mid abdomen. Limited gastric distention with no asymmetric uptake or outlet obstruction. Areas of uptake in the distal small bowel and portions of fluid-filled ascending and transverse colon demonstrate no gross abnormality on noncontrast CT. Diverticulosis involving the descending and sigmoid colon. No adjacent inflammatory change or abnormal uptake. Linear uptake in the lower rectum/anal canal with no obvious noncontrast CT abnormality. Possibly reactive or physiologic. Pelvic organs: No abnormal uptake. Abdominopelvic lymph nodes: No enlarged or hypermetabolic upper abdominal, mesenteric, retroperitoneal or pelvic lymph nodes. Slightly more conspicuous right lower quadrant lymph nodes with no suspicious uptake (fused image 201). Uptake within nonenlarged bilateral inguinal lymph nodes is nonspecific and misregistered due to motion. For example: Right inguinal lymph node, 0.6 cm short axis, SUV max 3.2 (fused image 250). Left inguinal lymph node, 0.6 cm short axis, SUV max 4.3 (fused image 244). Musculoskeletal, soft tissues, skin: No new aggressive, lytic or expansile osseous lesions with uptake. Variable uptake within post traumatic deformities involving the bilateral clavicles, shoulders/scapula and bilateral ribs related to prior injuries. No obvious lytic or aggressive bony lesions. For example: Left anterior 3rd rib deformity with callus, SUV max 3.8. Chronic appearing endplate plate deformities involving T6 and T11. Chronic wedge-shaped L1 compression deformity. Degenerative type uptake within the shoulders and spine. Other: Diffuse aortoiliac vascular calcifications. Small right paramidline fat containing lower ventral abdominal wall hernia. Prior right shoulder rotator cuff repair. IMPRESSION: 1. Progressive bilateral parenchymal and areas of peripheral/subpleural curvilinear reticular opacities in each lung with [id number] uptake most likely secondary to progressive pulmonary fibrosis and scarring. No measurable hypermetabolic lung nodules. Attention on imaging follow-up. 2. Variable [id number] uptake within nonenlarged bilateral axillary, lower right paratracheal, subcarinal and bilateral inguinal lymph nodes. Consider directed ultrasound with FNA as indicated. 3. Prior bilateral mastectomies with intact though less well distended implants. No abnormal chest soft tissue or axillary soft tissue uptake. 4. No definite tracer avid osseous lesions suspicious for metastatic disease. Multifocal bony deformities involving the bilateral clavicles, shoulders, each scapula and bilateral ribs with variable uptake in various stages of healing are most consistent with posttraumatic deformities. Correlate with recent prior injuries. 5. No abnormal uptake in the soft tissues of the neck, solid organs of the upper abdomen, abdominal or mesenteric lymph nodes . 6. Other nonacute findings as detailed in the body of the report. Dictated by Fran Whitehead MD @ 09/25/2024 10:38:39 AM (Electronically Signed)
== END 2024-09-20 14:05 | disposition home or self-care (01) ==
LOC: RAD 14:05
PROVIDERS: PCP Family Medicine; Visit Provider Internal Medicine Hematology & Oncology
DX: C34.32 Malignant neoplasm of lower lobe, left bronchus or lung (principal)
CPT/HCPCS: 78815; A9552

== ENCOUNTER 2024-09-25 11:00 | Outpatient (RCR) | payer MEDICARE, SELFPAY ==
--- NOTE | 2024-10-02 14:51 | ONC.NURNOTE ---
Pt called [facility] this morning to cancel her ultrasounds for today. She did not want to reschedule. RN notified clinic [facility] and the [facility] Radiology Dept.
== END 2025-03-03 23:59 | disposition home or self-care (01) ==
LOC: CCIC 11:00
PROVIDERS: PCP Family Medicine; Visit Provider Internal Medicine Hematology & Oncology
DX: C34.32 Malignant neoplasm of lower lobe, left bronchus or lung (principal); Z85.3 Personal history of malignant neoplasm of breast; Z17.1 Estrogen receptor negative status [ER-]; Z90.13 Acquired absence of bilateral breasts and nipples
CPT/HCPCS: 99213; 99214; G0463

== ENCOUNTER 2024-10-10 11:43 | Outpatient (CLI) | payer MEDICARE, SELFPAY ==
--- NOTE | 2024-10-10 12:15 | CRLHL7_ITS ---
For Patients: As a result of the Century Cures Act, medical imaging exams and procedure reports are released immediately into your electronic medical record. You may view this report before your referring provider. If you have questions, please contact your health care provider. Indication: bilateral inguinal lymph nodes per PET SCAN Technique: Ray scale and color Doppler ultrasound of the right inguinal soft tissues performed. Comparison: CT PET 09.20.24 Findings: Normal morphologic appearance of the right inguinal lymph nodes noted. Normal internal vascularity and normal central fatty jessica. No cortical thickening. Impression: Normal right inguinal lymph nodes. No suspicious findings. FNA not indicated. Dictated by Wilmer Romo MD @ 10/10/2024 5:10:21 PM (Electronically Signed)
--- NOTE | 2024-10-10 12:15 | CRLHL7_ITS ---
For Patients: As a result of the Century Cures Act, medical imaging exams and procedure reports are released immediately into your electronic medical record. You may view this report before your referring provider. If you have questions, please contact your health care provider. Indication: bilateral inguinal lymph nodes per PET SCAN Technique: Ray scale and color Doppler ultrasound of the left inguinal soft tissues performed. Comparison: CT PET 09.20.24 Findings: Normal morphologic appearance of the left inguinal lymph nodes noted. Normal internal vascularity and normal central fatty jessica. No cortical thickening. Impression: Normal left inguinal lymph nodes. No suspicious findings. FNA not indicated. Dictated by Wilmer Romo MD @ 10/10/2024 5:11:44 PM (Electronically Signed)
== END 2024-10-10 11:44 | disposition home or self-care (01) ==
LOC: US 11:43
PROVIDERS: PCP Family Medicine; Visit Provider Internal Medicine Hematology & Oncology
DX: R59.0 Localized enlarged lymph nodes (principal); C34.32 Malignant neoplasm of lower lobe, left bronchus or lung
CPT/HCPCS: 76882

== ENCOUNTER 2024-10-24 15:02 | Emergency (ER) | payer MEDICARE, SELFPAY ==
--- OUTSIDE RECORDS SUMMARY | 2024-10-24 15:05 | XMS_ITS | Clinical Summary ---
Author Organization [facility] Address [address] [place] [address] Care Team Providers Care Railway Station Manager Name Role Phone Nilam Hernandez RN, BSN Unavailable Unavail Edwige Burt DO Primary Care Provider [phone] Allergies Active Allergy Reactions Criticality Noted Date Comments Banana Anaphylaxis High 11/13/2019 Erythromycin 10/24/2008 Cephalexin Nausea And Vomiting 03/05/2009 Latex Hives 01/14/2009 Oxycodone Nausea Only 11/13/2019 Penicillins Hives 01/25/2007 Peanut Oil Anaphylaxis High 11/13/2019 Sherrard Rash 08/08/2024 Tetanus And Diphther. Tox (Pf) Angioedema 01/14 Medications ASPIRIN 81 MG TAB take 1 tablet (81mg) by oral route once daily 0 01/26/20 07 Active blood-glucose meterIndications:D iabetes mellitus without complication (HC) Dispense meter, E11.9 NIDDM type II - Test 1 time/day 1 Device 07/16/19 17 Active blood sugar diagnostic (BLOOD GLUCOSE TEST) stripIndications:D iabetes mellitus without complication (HC) Dispense item covered by pt ins. E11.9 NIDDM type II - Test 1 time/day 100 box 3 07/16/19 17 Active WalkerIndications: Acute respiratory failure with hypoxia (HC) Walker with front wheels for home use. 1 Device 02/04/20 20 Active albuterol HFA (PRO-AIR; VENTOLIN; PROVENTIL) 90 mcg/actuation inhalerIndications :Mild intermittent asthma without complication (HC) Inhale 2 Puffs by mouth every 4 hours if needed for Shortness of Breath 1st choice or Wheezing 1st choice. 18 g 1 07/21/19 24 Active magnesium oxide (MAG-OX 400) 400 mg tabletIndications: Low magnesium levels Take 1 Tablet (400 mg) by mouth once daily. 100 Tablet 2 07/22/19 24 Active amitriptyline (ELAVIL) 25 mg tabletIndications: Neuropathy Take 1 Tablet (25 mg) by mouth at bedtime. 90 Tablet 2 08/15/19 Active FLUoxetine (PROZAC) 40 mg capsuleIndications :Anxiety Take 1 Capsule (40 mg) by mouth at bedtime. 90 Capsule 2 08/15/19 24 Active famotidine 20 mg tabletIndications: Itching Take 1 Tablet (20 mg) by mouth two times daily. 60 Tablet 3 10/24/19 Active cetirizine 10 mg tabletIndications: Itching Take 1 Tablet (10 mg) by mouth once daily. 30 Tablet 3 10/24/19 25 Active hydrocortisone 2.5 % ointmentIndication s:Itching Apply topically to affected area(s) 2 times daily if needed for Itching. 20 g 1 10/24/19 25 Active lisinopriL 5 mg tabletIndications: Microalbuminuria,H ypertension, essential Take 1 Tablet (5 mg) by mouth once daily. 30 Tablet 2 10/24/19 25 Active amLODIPine 5 mg tabletIndications: Hypertension, essential Take 1 Tablet (5 mg) by mouth two times daily. 180 Tablet 10/24/19 25 Active atorvastatin 20 mg tabletIndications: Mixed hyperlipidemia Take 1 Tablet (20 mg) by mouth once daily. 90 Tablet 2 10/24/19 25 Active hydrocortisone (HYTONE) 2.5 % ointmentIndication s:Rash apply to affected area(s) by topical route twice daily. 20 g 1 08/07/19 21 025 Discontin ued(Reord er (E-cancel not sent)) atorvastatin (LIPITOR) 20 mg tabletIndications: Mixed hyperlipidemia Take 1 Tablet (20 mg) by mouth once daily. 90 Tablet 2 08/15/19 24 025 Discontin ued(Reord er (E-cancel not sent)) amLODIPine (NORVASC) 5 mg tabletIndications: Hypertension, essential Take 1 Tablet (5 mg) by mouth two times daily. 180 Tablet 10/25/19 24 025 Discontin ued(Reord er (E-cancel not sent)) lisinopriL (PRINIVIL; ZESTRIL) 5 mg tabletIndications: Microalbuminuria,H ypertension, essential Take 1 Tablet (5 mg) by mouth once daily. 60 Tablet 10/31/19 24 025 Discontin ued(Reord er (E-cancel not sent)) Active Problems Problem Noted Date Diagnosed Date Stage 4 chronic kidney disease 08/20/2024 Chronic obstructive pulmonar y disease, unspecified COPD type 07/21/2023 Chronic GERD 02/11/2021 Altered mental status 01/30/2020 CKD (chronic kidney disease) stage 3, GFR 30-59 ml/min 08/12/2017 Anxiety 10/24/2015 Squamous cell carcinoma of lungs, bilateral - st age 5 04/17/2015 Overview (07/15/2021): Diagnosis 2015 Cisplatin/gemcitabine Lost to follow up - saw oncology 2017 [id number] Lost to follow up CT abdomen with [...] bilateral mastectomy 01/30/09, Infiltrating ductal carcinoma, ER, [facility] and HER-2/bushra neg, 0/12 nodes Unspecified essential hypertension 12/05/2008 Type II or unspecified type diabetes mellitus without mention of complication, not stated as uncontrolled 01/28/2006 Resolved Problems Problem Noted Date Diagnosed Date Resolved Date Small bowel obstruction 01/30/202007/01 Overview (07/15/2021): Surgery 01/2020 at [facility] with acute respiratory failure post op with transfer to [facility] 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 - laparotomy with take down of adhesions at [facility] 11/2020 Acute respiratory failure 01/30/2020 Overview (07/15/2021): S/P surgery for SBO Alcohol abuse 12/10/2009 12/23/2009 Vitamin D deficiency 09/08/2009 010 Encounters Date Type Department Care Team Description 10/24/2024 Telephone [facility] [address] [place] [address] Edwige Robledo, Results 10/24/2024 Phone Office Visit [facility] [address] [place] [address] Edwige Robledo, Error-please disregard (opened in error) 10/23/2024 2:50 PM CDT Office Visit [facility] [address] [place] [address] Edwige Robledo DO Rash (has had itchy rash on both arms and chest/trunk, ongoing for undetermined amount of time (possibly 3 months)) 10/23/2024 Travel 10/22/2024 Telephone [facility] [address] [place] [address] Edwige Robledo, Appointment Request (Medication management) 10/21/2024 Nurse Triage [facility] [address] [place] [address] Edwige Robledo DO Rash 08/22/2024 Patient Outreach [facility] Care Management - Advanced Care Team [facility] [place] [address] Siri Haskins Complex Care Management (CCM Engagement Outreach ) 08/09/2024 Orders Only [facility] Scanner 1 scan: (1-Ord) [facility], ELBOW RT W/O CONT, 08/09/2024 08/09/2024 Lab Requisition [facility] [phone] Chivo López MD 08/08/2024 Orders Only [facility] Scanner 1 scan: (1-Ord) [facility], XR CHEST 2V, 08/08/2024 08/08/2024 Orders Only [facility] Scanner 1 scan: (1-Ord) [facility], XR ELBOW RT 2V, 08/08/2024 08/08/2024 Orders Only [facility] Scanner 1 scan: (1-Ord) [facility], WRIST RT, 08/08/2024 08/08/2024 Orders Only 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[employer] Gender Identity Not on file Sexual Orientation Not on file Obstetrics History Para Term AB IAB SAB Ectopic Multiple Livin g Live Births 4 3 1 1 3 Date Outcome GA Total Labor Labor/2nd/3rd Weight Sex Type Anes PTL Alla A1 A5 Name Clin Para Para Para SAB Last Filed Vital Signs Vital Sign Reading Time Taken Comments Blood Pressure 165/84 10/23/2024 2:59 PM CDT Pulse 76 10/23/2024 2:59 PM CDT Temperature 37.1 C (98.8 F) 12/03/2020 3:39 PM CDT Respiratory Rate 20 02/05/2020 8:00 AM CDT Oxygen Saturation 98% 07/21/2023 10:45 AM CDT Inhaled Oxygen Concentration - - Weight 49.2 kg (108 lb 6.4 oz) 10/23/2024 2:59 P M CDT Height 154.1 cm (5' 0.67) 02/11/2021 1:28 PM CD T Body Mass Index 20.71 02/11/2021 1:28 PM CDT Plan of Treatment Upcoming Encounters Date Type Department Care Team (Late st Contact Info) Description 10/31/2024 2:25 PM CDT Office Visit [facility] [address] [place] [address] Edwige Robledo DO [address] [facility] [place] [address] Health Maintenance Due Date Last Done Comments RSV vaccine for adults or (1 - Risk 60-74 years 1-dose series) 2016 Colonoscopy through age 75 08/26/202008/26 [facility] DEXA/DXA scan for age 65+ 2021 Medicare Wellness for age 65+ 2021 Zoster (shingles) series for age 50+ (3 of 3) 04/24/2021 02/27/2021, 04/20/2013 BMI (ht and wt on same day) for age 18+ 02/11/2022 02/11/2021, 09/21/2018, 02/27/2018, Additional history exists Depression screening for age 12+ 07/21/2024 07/22/2023, 07/21/2023, 02/11/2021, Additional history exists COVID-19 vaccine series (2023- season) 2024 04/06/2024, 07/21/2023, 03/02/2021, Additional history exists Lipids for age 45-75 10/23/2029 10/23/2024, 07/21/2023, 12/03/2020, Additional history exists Tetanus booster Discontinued 12/24/2009 (Postponed) Hepatitis B series for 19+ Completed 11/21, 05/30/2013, 04/20/2013 Hepatitis C screening for ag e 18-79 Completed 12/03/2020 Pneumococcal series for age 50+ Completed , 02/11/2021 Procedures Procedure Name Priority Date/Time Associated Diagnosis Comments LIPID PANEL W REFLEX MEASURED LDL Routine 10/23/2024 3:44 PM CDT Mixed hyperlipidemia COMP METABOLIC PANEL Routine 10/23/2024 3:44 PM CDT Stage 4 chronic kidney disease (HC) Mixed hyperlipidemia CBC W PLT NO DIFF Routine 10/23/2024 3:4 4 PM CDT Itching MAGNESIUM Routine 10/23/2024 3:44 PM CDT Hypomagnesemia HEMOGLOBIN A1C Routine 10/23/2024 3:44 PM CDT Diabetes mellitus without complication (HC) LAB TRACKING EVENT Routine 08/09/2024 3: 33 PM CDT PERIPHERAL BLD MORPHOLOGY Routine 08/09/2024 3:33 PM CDT SCAN-CT INTERPRETATION 12:00 AM CDT SCAN-RADIOLOGY REPORT 08/08/2024 12:00 AM CDT SCAN-RADIOLOGY REPORT 08/08/2024 12:00 AM CDT SCAN-RADIOLOGY REPORT 08/08/2024 12:00 AM CDT SCAN-RADIOLOGY REPORT 08/08/2024 12:00 AM CDT ANTI HCV Routine 12/03/2020 5:05 PM CDT Need for hepatitis C screening test from Last 3 Months or Most Recently Relevant to Health Maintenance Results * HEMOGLOBIN A1C (10/23/2024 3:44 PM CDT) HEMOGLOBIN A1C 4.8 <5.7 % [facility] Comment: For the purpose of screening for the presence of diabetes: <5.7% Consistent with the absence of diabetes 5.7-6.4% Consistent with increased risk for diabetes (prediabetes) > or =6.5% Consistent with diabetes This assay result is consistent with a decreased risk of diabetes. Currently, no consensus exists regarding use of hemoglobin A1c for diagnosis of diabetes in children. According to [place] Diabetes Association (ADA) guidelines, hemoglobin A1c <7.0% represents optimal control in non- diabetic patients. Different metrics may apply to specific patient populations. Standards of Medical Care in Diabetes(ADA). Blood BLOOD SPECIMEN / Unknown 10/23/2024 3:44 PM CDT 10/23/2024 3:45 PM CDT Edwige Robledo DO CHEMISTRY Final Resu lt [facility] [address] [place] [address], [facility] [address] [place] [address] * LIPID PANEL W REFLEX MEASURED LDL (10/23/2024 3:44 PM CDT) Pathologist [facility] [place] CHOLESTEROL, TOTAL 197 <200 mg/dL [facility] HDL CHOLESTEROL 79 > OR = 50 mg/dL [facility] TRIGLYCERIDES 95 <150 mg/dL [facility] LDL-CHOLESTEROL 99 mg/dL (calc) [facility] Comment: Reference range: <100 Desirable range <100 mg/dL for primary prevention; <70 mg/dL for patients with CHD or diabetic patients with > or = 2 CHD risk factors. LDL-C is now calculated using the Jacqueline calculation, which is a validated novel method providing better accuracy than the Friedewald equation in the estimation of LDL-C. Tee GUERRA et al. VERITO. 2013;310(19): 8913-6094 (http://education.SkyWire/faq/CIL930) CHOL/HDLC RATIO 2.5 <5.0 (calc) [facility] NON HDL CHOLESTEROL 118 <130 mg/dL (calc) [facility] Comment: For patients with diabetes plus 1 major ASCVD risk factor, treating to a non-HDL-C goal of <100 mg/dL (LDL-C of <70 mg/dL) is considered a therapeutic option. Blood BLOOD SPECIMEN / Unknown 10/23/2024 3:44 PM CDT 10/23/2024 3:45 PM CDT us Edwige Robledo DO CHEMISTRY Final Resu lt [employer] [facility] [address] [place] [address], [facility] [address] [place] [address] * (ABNORMAL) CBC W PLT NO DIFF (10/23/2024 3:44 PM CDT) [facility] WHITE BLOOD CELL COUNT 6.7 3.8 - 10.8 Thousand/u L [facility] RED BLOOD CELL COUNT 3.48(L) 3.80 - 5.10 Million/uL [facility] HEMOGLOBIN 11.1(L) 11.7 - 15.5 g/dL [facility] HEMATOCRIT 34.0(L) 35.0 - 45.0 % [facility] MCV 97.7 80.0 - 100.0 fL [facility] MCH 31.9 27.0 - 33.0 pg [facility] MCHC 32.6 32.0 - 36.0 g/dL [facility] Comment: For adults, a slight decrease in the calculated MCHC value (in the range of 30 to 32 g/dL) is most likely not clinically significant; however, it should be interpreted with caution in correlation with other red cell parameters and the patient's clinical condition. RDW 12.6 11.0 - 15.0 % [facility] PLATELET COUNT 334 140 - 400 Thousand/u L [facility] MPV 10.1 7.5 - 12.5 fL [facility] Blood BLOOD SPECIMEN / Unknown 10/23/2024 3:44 PM CDT 10/23/2024 3:45 PM CDT us Edwige Robledo DO HEMATOLOGY Final Resu lt [facility] [address] [place] [address], [facility] [address] [place] [address] * (ABNORMAL) MAGNESIUM (10/23/2024 3:44 PM CDT) Pathologist [facility] [place] MAGNESIUM 1.3(L) 1.5 - 2.5 mg/dL [facility] Blood BLOOD SPECIMEN / Unknown 10/23/2024 3:44 PM CDT 10/23/2024 3:45 PM CDT us Edwige Robledo DO CHEMISTRY Final Resu lt [email or web address] [address] [place] [address], [place] [phone] [facility] [address] [place] [address] * (ABNORMAL) COMP METABOLIC PANEL (10/23/2024 3:44 PM CDT) GLUCOSE 72 65 - 99 mg/dL [facility] Comment: Fasting reference interval UREA NITROGEN (BUN) 21 7 - 25 mg/dL [facility] CREATININE 2.25(H) 0.50 - 1.05 mg/dL [facility] EGFR 23(L) > OR = 60 mL/min/1.7 3m2 [facility] BUN/CREATININE RATIO 9 6 - 22 (calc) [facility] SODIUM 134(L) 135 - 146 mmol/L [facility] POTASSIUM 4.5 3.5 - 5.3 mmol/L [facility] CHLORIDE 105 98 - 110 mmol/L [facility] CARBON DIOXIDE 13(L) 20 - 32 mmol/L [facility] Comment: Verified by repeat analysis. Collection tube is incompletely filled. CO2 result may be decreased. CALCIUM 9.8 8.6 - 10.4 mg/dL [facility] PROTEIN, TOTAL 8.7(H) 6.1 - 8.1 g/dL [facility] ALBUMIN 4.5 3.6 - 5.1 g/dL [facility] GLOBULIN 4.2(H) 1.9 - 3.7 g/dL (calc) [facility] ALBUMIN/GLOBULIN RATIO 1.1 1.0 - 2.5 (calc) [facility] BILIRUBIN, TOTAL 0.6 0.2 - 1.2 mg/dL [facility] ALKALINE PHOSPHATASE 144 37 - 153 U/L [facility] AST 21 10 - 35 U/L [facility] ALT 9 6 - 29 U/L [facility] Blood BLOOD SPECIMEN / Unknown 10/23/2024 3:44 PM CDT 10/23/2024 3:45 PM CDT Edwige Robledo DO CHEMISTRY Final Resu lt [facility] [address] [place] [address], [facility] [address] [place] [address] * LAB TRACKING EVENT (08/09/2024 3:33 PM CDT) Other (Other) Client Collect / Unknown 08/09/2024 3:33 PM CDT 08/09/2024 10:43 PM CDT Chivo López MD LAB BILL ONLY Final Result Performing Organization Address City/[facility]/ZIP Co de Phone Number [facility] [address] [place] [address], * PERIPHERAL BLD MORPHOLOGY (08/09/2024 3:33 PM CDT) Case Report Special Hematology Report Case: [id number] Authorizing Provider: Chivo López MD Collected: 08/09/2024 1533 Ordering Location: [facility] Received: 08/10/2024 0325 Pathologist: Tawanda Walden MD Specimen: Peripheral Blood 08/10/2024 4:58 PM CDT [facility]- [facility] LABORATORY Final Diagnosis PERIPHERAL BLOOD: 1. Moderate normocytic anemia with mild rouleaux formation 2. See comment 08/10/2024 4:58 PM CDT [facility] at 1658 CDT Comment The specific etiology of the anemia is not apparent from the blood smear findings. Normocytic anemia may be associated with a variety of conditions, including anemia of chronic disease, hypothyroidism, active bleeding, early iron deficiency, and medication effect. The morphologic features are not suggestive of hemolysis. No dysgranulopoiesis or circulating blasts are seen. Rouleaux formation can be seen in association with increased serum proteins (monoclonal or polyclonal). Correlation with serum and/or urine protein electrophoresis studies (with reflex immunofixation studies, as appropriate) could be considered. This case was also reviewed by Aleena Allison MT, (ASCP). 08/10/2024 4:58 PM CDT [facility] Clinical Information The end is a 69-year-old female. Per CBC scan: Anemia. Per EPIC: Additional history includes hypertension, diabetes, alcoholism, COPD, CKD, and breast cancer 2008. Peripheral blood morphology 2019 ([id number]) showed moderate normocytic anemia. 07/21/23 11:58 CREATININE: 1.55 (H) eGFR: 37 (L) 08/10/2024 4:58 PM CDT [facility] CBC and Differential HEMATOLOGY PARAMETERS Tested at: [facility] RESULTS EXPECTED VALUES WBC: 5.5 4.5-93n1611/cumm RBC: 2.79 4.00-5.20 mil/cumm DECREASED HGB: 8.9 12-16 gm/dl DECREASED HCT: 27.4 33-51% DECREASED MCV: 98.2 80-100 fl NORMOCYTIC MCH: 31.9 26-34 pg MCHC: 32.5 32-36 gm/dl NORMOCHROMIC RDW: 12.4 11.5-15.5% PLT: 244 [id number]/uL MPV: 9.8 6.5-11 fl Retic: 1.66 0.5-1.5% ELEVATED Differential Absolute (%) Expected (%) (x10*9/L) (x10*9/L) Neutrophils: 3.81 (69.4) 1.7-7.0 (42-72%) Lymphocytes: 1.02 (18.6) 0.9-2.9 (20-44%) Monocytes: 0.36 (6.6) <0.9 (0-11%) Eosinophils: 0.26 (4.7) <0.5 (0-2%) Basophils: 0.03 (.5) <0.3 (<3.0%) Imm Grans: 0.01 (.2) <0.3 (0-3%) (Metas, Myelos,Pros) 08/10/2024 4:58 PM CDT [facility] Microscopic Description The final diagnosis is based on microscopic examination of an appropriately stained blood smear. 08/10/2024 4:58 PM CDT [facility] Additional Information Interpreted at [facility] - [address] [place] [address] 08/10/2024 4:58 PM CDT [facility] Blood (Peripheral Blood) 08/09/2024 3:33 PM CDT 08/10/2024 3:25 AM CDT us Chivo López MD HEMATOLOGY Final Result [facility] [address] [place] [address], [place] * SCAN-CT INTERPRETATION (08/09/2024 12:00 AM CDT) Anatomical Region Laterality Modality Other us Scanner OTHER Final Result * SCAN-RADIOLOGY REPORT (08/08/2024 12:00 AM CDT) Only the most recent of4 resultswithin the time period is included. Anatomical Region Laterality Modality Other us Scanner OTHER Final Result * ANTI HCV (12/03/2020 5:05 PM CDT) HEPATITIS C ANTIBODY Non-React cindy Non-React cindy 12/04/2020 2:54 PM CDT [facility] Comment:Antibodies to HCV no t detected; does not exclude the possibility of exposure to HCV. Blood BLOOD SPECIMEN / Unknown Butterfly / Unknown 12/03/2020 5:05 PM CDT 12/03/2020 5:14 PM CDT us Marisol Fox MD SEND OUTS Final Result [facility] [address] [place] [address], [place] from Last 3 Months or Most Recently Relevant to Health Maintenance Insurance [employer] MR * Guarantor: BERNIE CAMPBELL Account Type Relation to Patient Date of Phone Billing Address Confidential [address] [facility] [address] [place], [place] [id number] [place] [address] COMMERCIAL Advance Directives * Full Code (Latest Code Status on File) Date Activated Date Inactivated Comments 01/29/2020 7:08 PM 02/05/2020 2:20 PM Question Answer Comments Code Status Discussion: Not Discussed Care Teams Railway Station Manager Relationship Specialty Start Date End Date Edwige Robledo DO [place] [facility] [place] [address] PCP - General Family Practice 07/21/23 Nilam Hernandez, RN, BSN Investigator Vice Registered Nurse 01/28/15
[2024-10-24 15:14] VITALS: BP 166/84; PULSE 70; RESP 16; TEMP 36.9; O2SAT 96; BMI 18.9
[2024-10-24 16:42] LABS: Basophils Absolute Auto 0.04 K/uL (0.00-0.30); Basophils Percent Auto 0.7 % (0.0-3.0); Eosinophils Percent Auto 7.6 % (0.0-7.0); Hematocrit 29.2 % (33.0-51.0); Hemoglobin* 9.4 gm/dL (12.0-16.0); Immature Granulocytes Abs Auto 0.01 K/uL (0.00-0.30); Immature Granulocytes Pct Auto 0.2 %; Lymphocytes Absolute Auto 1.94 K/uL (0.90-2.90); Lymphocytes Percent Auto 33.7 % (20-44); Mean Corpuscular HGB Conc 32 gm/dL (32-36); Mean Corpuscular Hemoglobin 31 pg (26-34); Mean Corpuscular Volume 96 fL (80-100); Monocytes Percent Auto 5.2 % (0.0-11.0); Neutrophils Absolute Auto 3.03 K/uL (1.7-7.0); Neutrophils Percent Auto 52.6 % (42.0-72.0); Platelet Count* 290 K/uL (140-440); RDW Coefficient of Variation % 13.2 % (11.5-15.5); Red Blood Count 3.03 m/uL (4.00-5.20); White Blood Count* 5.76 K/uL (4.50-11.00)
[2024-10-24 16:43] LABS: Slide Review Reflex No
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
[2024-10-24 17:09] LABS: Chloride* 100 mmol/L (96-114); Potassium* 4.6 mmol/L (3.6-5.1); Sodium* 129 mmol/L (135-149)
[2024-10-24 17:12] LABS: Blood Urea Nitrogen* 15 mg/dL (7-30); Creatinine* 2.1 mg/dL (0.5-1.5); Estimated Glomerular Filt Rate 25 ml/min
[2024-10-24 17:13] LABS: Anion Gap 17 mEq/L (7-15); Calcium* 9.2 mg/dL (8.4-10.6); Carbon Dioxide* 12 mmol/L (20-32); Glucose* 73 mg/dL (60-115)
== END 2024-10-24 17:27 | disposition left against medical advice (07) ==
PROVIDERS: Emergency Provider Student in an Organized Health Care Education/Training Program; PCP Family Medicine
DX: R11.0 Nausea (principal); N17.9 Acute kidney failure, unspecified
CPT/HCPCS: 36415; 80048; 85025; 99283

== ENCOUNTER 2024-10-25 13:24 | Emergency (ER) | payer MEDICARE, SELFPAY ==
--- OUTSIDE RECORDS SUMMARY | 2024-10-25 13:30 | XMS_ITS | Clinical Summary ---
Author Organization [facility] Address [address] [place] [address] Care Team Providers Care Meter Setter Name Role Phone Nilam Hernandez RN, BSN Unavailable Unavail Edwige Burt DO Primary Care Provider [phone] Allergies Active Allergy Reactions Criticality Noted Date Comments Banana Anaphylaxis High 11/13/2019 Erythromycin 10/24/2008 Cephalexin Nausea And Vomiting 03/05/2009 Latex Hives 01/14/2009 Oxycodone Nausea Only 11/13/2019 Penicillins Hives 01/25/2007 Peanut Oil Anaphylaxis High 11/13/2019 [place] Rash 08/08/2024 Tetanus And Diphther. 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/bushra neg, 0/12 nodes Unspecified essential hypertension 12/05/2008 Type II or unspecified type diabetes mellitus without mention of complication, not stated as uncontrolled 01/28/2006 Resolved Problems Problem Noted Date Diagnosed Date Resolved Date Small bowel obstruction 01/30/202007/01 Overview (07/15/2021): Surgery 01/2020 at [facility] with acute respiratory failure post op with transfer to [facility] 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 - laparotomy with take down of adhesions at [facility] 11/2020 Acute respiratory failure 01/30/2020 Overview (07/15/2021): S/P surgery for SBO Alcohol abuse 12/10/2009 12/23/2009 Vitamin D deficiency 09/08/2009 010 Encounters Date Type Department Care Team Description 10/25/2024 Nurse Triage [facility] [address] [place] [address] Edwige Robledo, Questions 10/24/2024 Telephone [facility] [address] [place] [address] Edwige Robledo, DO Results 10/24/2024 Phone Office Visit [facility] [address] [place] [address] Edwige Robledo, Error-please disregard (opened in error) 10/23/2024 2:50 PM CDT Office Visit [facility] [address] [place] [address] Edwige Robledo, Rash (has had itchy rash on both arms and chest/trunk, ongoing for undetermined amount of time (possibly 3 months)) 10/23/2024 Travel 10/22/2024 Telephone [facility] [address] [place] [address] Edwige Robledo, Appointment Request (Medication management) 10/21/2024 Nurse Triage [facility] [address] [place] [address] Edwige Robledo, Rash 08/22/2024 Patient Outreach [facility] Care Management - Advanced Care Team [address], [place] [id number] Siri Haskins Complex Care Management (CCM Engagement Outreach ) 08/09/2024 Orders Only [facility] Scanner 1 scan: (1-Ord) [facility], ELBOW RT W/O CONT, 08/09/2024 08/09/2024 Lab Requisition [facility] [phone] Chivo López MD 08/08/[address] [facility] Scanner 1 scan: (1-Ord) [facility], XR CHEST 2V, 08/08/2024 08/08/[address] [facility] Scanner 1 scan: (1-Ord) [facility], XR ELBOW RT 2V, 08/08/2024 08/08/[address] [facility] Scanner 1 scan: (1-Ord) [facility], WRIST RT, 08/08/2024 08/08/[address] [facility] Scanner 1 scan: (1-Ord) [facility], SHOULDER RT, 08/08/2024 from Last 3 Months Immunizations Immunization Administration Dates Next Due COVID-19 VACCINE SPIKEVAX (M ODERNA 50MCG/0.5ML) 12YO+ PFS 07/21/2023 COVID-19 vaccine (OpenLogicBio NTech 30mcg/0.3mL) PF MDV 08/05/2020 Hepatitis B (Adult) 11/21/2013,05/30/2013,2012 Influenza, High-dose Inactivated 01/10/2017 Influenza, IIV4 02/11/2021,,02/27/2018,2016 Pneumococcal Conj 20-valent (Prevnar 20) 07/21/2023 Pneumococcal [...] on file Legal Sex Female 5:26 AM [employer]INT BU[employer] Gender Identity Not on file Sexual Orientation [...] Description 10/31/2024 2:25 PM CDT Office Visit [facility] [address] [place] [address] Edwige Robledo DO [address] [place] [address] Health Maintenance Due Date Last Done Comments RSV vaccine for adults or (1 - Risk 60-74 years 1-dose series) 2016 Colonoscopy through age 75 08/26/202008/26 (Completed outside of [facility]) DEXA/DXA scan for age 65+ 2021 Medicare [...] PM CDT) HEMOGLOBIN A1C 4.8 <5.7 % [facility] Comment: For the purpose of screening for the presence of diabetes: <5.7% Consistent with the absence of diabetes 5.7-6.4% Consistent with increased risk for diabetes (prediabetes) > or =6.5% Consistent with diabetes This assay result is consistent with a decreased risk of diabetes. Currently, no consensus exists regarding use of hemoglobin A1c for diagnosis of diabetes in children. According to [place] Diabetes Association (ADA) guidelines, hemoglobin A1c <7.0% represents optimal control in non- diabetic patients. Different metrics may apply to specific patient populations. Standards of Medical Care in Diabetes(ADA). Blood BLOOD SPECIMEN / Unknown 10/23/2024 3:44 PM CDT 10/23/2024 3:45 PM CDT Edwige Robledo DO CHEMISTRY Final Resu lt Performing Organization Address City/[facility]/ZIP Co de Phone Number [facility] [address] [place] [address], [facility] [address] [facility] [place] [address] * LIPID PANEL W REFLEX MEASURED LDL (10/23/2024 3:44 PM CDT) CHOLESTEROL, TOTAL 197 <200 mg/dL [facility] HDL CHOLESTEROL 79 > OR = 50 mg/dL [facility] TRIGLYCERIDES 95 <150 mg/dL [facility] LDL-CHOLESTEROL 99 mg/dL (calc) [facility] Comment: Reference range: <100 Desirable range <100 mg/dL for primary prevention; <70 mg/dL for patients with CHD or diabetic patients with > or = 2 CHD risk factors. LDL-C is now calculated using the Tee-Jakob calculation, which is a validated novel method providing better accuracy than the Friedewald equation in the estimation of LDL-C. Tee GUERRA et al. VERITO. 2013;310(19): 2523-0328 (http://education.Locality.DraftDay/faq/MMR078) CHOL/HDLC RATIO 2.5 <5.0 (calc) [facility] NON HDL CHOLESTEROL 118 <130 mg/dL (calc) [facility] Comment: For patients with diabetes plus 1 major ASCVD risk factor, treating to a non-HDL-C goal of <100 mg/dL (LDL-C of <70 mg/dL) is considered a therapeutic option. Blood BLOOD SPECIMEN / Unknown 10/23/2024 3:44 PM CDT 10/23/2024 3:45 PM CDT us Edwige Robledo DO CHEMISTRY Final Resu lt [facility] [address] [place] [address], [place] [phone] [facility] [address] [facility] [place] [address] * (ABNORMAL) CBC W PLT NO DIFF (10/23/2024 3:44 PM CDT) Pathologist [facility] WHITE BLOOD CELL COUNT 6.7 3.8 - [...] 7.5 - 12.5 fL [facility] Blood BLOOD SPECIMEN / Unknown 10/23/2024 3:44 PM CDT 10/23/2024 3:45 PM CDT us Edwige Robledo DO HEMATOLOGY Final Resu lt [facility] [address] [place] [address], [facility] [address] [place] [address] * (ABNORMAL) MAGNESIUM (10/23/2024 3:44 PM CDT) [facility] MAGNESIUM 1.3(L) 1.5 - 2.5 mg/dL [facility] Blood BLOOD SPECIMEN / Unknown 10/23/2024 3:44 PM CDT 10/23/2024 3:45 PM CDT us Edwige Robledo DO CHEMISTRY Final Resu lt [facility] [address] [place] [address], [facility] [address] [place] [address] * (ABNORMAL) COMP METABOLIC PANEL (10/23/2024 3:44 PM CDT) Pathologist [facility] GLUCOSE 72 65 - 99 mg/dL [facility] Comment: Fasting reference interval UREA [...] DO CHEMISTRY Final Resu lt [facility] [address] [place] [address], [facility] [address] [place] [address] * LAB TRACKING EVENT (08/09/2024 3:33 PM CDT) Other (Other) Client Collect / Unknown 08/09/2024 3:33 PM CDT 08/09/2024 10:43 PM CDT Chivo López MD LAB BILL ONLY Final Result [facility] [address] [place] [address], * PERIPHERAL BLD MORPHOLOGY (08/09/2024 3:33 PM CDT) Case Report Special Hematology Report Case: [id number] Authorizing Provider: Chivo López MD Collected: 08/09/2024 1533 Ordering Location: [facility] Received: 08/10/2024 0325 Pathologist: Tawanda Walden MD Specimen: Peripheral Blood 08/10/2024 4:58 PM CDT [facility] ENTRAL LABORATORY Final Diagnosis PERIPHERAL BLOOD: 1. Moderate normocytic anemia with mild rouleaux formation 2. See comment 08/10/2024 4:58 PM CDT [facility] at 1658 CDT Comment The specific [...] was also reviewed by Aleena Allison MT, ([facility]). 08/10/2024 4:58 PM CDT [facility]AL LAB[facility]ATORY Clinical Information The end is a 69-year-old female. Per CBC scan: Anemia. Per EPIC: Additional history includes hypertension, diabetes, alcoholism, COPD, CKD, and breast cancer 2008. Peripheral blood morphology 2019 ([id number]) showed moderate normocytic anemia. 07/21/23 11:58 CREATININE: 1.55 (H) eGFR: 37 (L) 08/10/2024 4:58 PM CDT [facility] LAB[facility]ORY CBC and Differential HEMATOLOGY PARAMETERS Tested at: [facility] RESULTS EXPECTED VALUES WBC: 5.5 4.5-72w3100/cumm RBC: 2.79 4.00-5.20 mil/cumm DECREASED HGB: 8.9 12-16 gm/dl DECREASED HCT: 27.4 33-51% DECREASED MCV: 98.2 80-100 fl NORMOCYTIC MCH: 31.9 26-34 pg MCHC: 32.5 32-36 gm/dl NORMOCHROMIC RDW: 12.4 11.5-15.5% PLT: 244 [id number]/uL MPV: 9.8 6.5-11 fl Retic: 1.66 0.5-1.5% ELEVATED Differential Absolute (%) Expected (%) (x10*9/L) (x10*9/L) Neutrophils: 3.81 (69.4) 1.7-7.0 (42-72%) Lymphocytes: 1.02 (18.6) 0.9-2.9 (20-44%) Monocytes: 0.36 (6.6) <0.9 (0-11%) Eosinophils: 0.26 (4.7) <0.5 (0-2%) Basophils: 0.03 (.5) <0.3 (<3.0%) Imm Grans: 0.01 (.2) <0.3 (0-3%) (Metas, Myelos,Pros) 08/10/2024 4:58 PM CDT [facility] Microscopic Description The final diagnosis is based on microscopic examination of an appropriately stained blood smear. 08/10/2024 4:58 PM CDT [facility] Additional Information Interpreted at [facility] - [address] [place] [address] S[address] [facility] [address] [address] 08/10/2024 4:58 PM CDT [facility] Blood (Peripheral Blood) 08/09/2024 3:33 PM CDT 08/10/2024 3:25 AM CDT us Chivo López MD HEMATOLOGY Final Result [facility] [address] [place] [address], * SCAN-CT INTERPRETATION (08/09/2024 12:00 AM CDT) Anatomical Region Laterality Modality Other us Scanner OTHER Final Result * SCAN-RADIOLOGY REPORT (08/08/2024 12:00 AM CDT) Only the most recent of4 resultswithin the time period is included. Anatomical Region Laterality Modality Other us Scanner OTHER Final Result * ANTI HCV (12/03/2020 5:05 PM CDT) HEPATITIS C ANTIBODY Non-React cindy Non-React cindy 12/04/2020 2:54 PM CDT [facility] Comment:Antibodies to HCV no t detected; does not exclude the possibility of exposure to HCV. Blood BLOOD SPECIMEN / Unknown Butterfly / Unknown 12/03/2020 5:05 PM CDT 12/03/2020 5:14 PM CDT us Marisol Fox MD SEND OUTS Final Result [facility] [address] [place] [address], [place] from Last 3 Months or Most Recently Relevant to Health Maintenance Insurance [facility] AETNA * Guarantor: BERNIE CAMPBELL Account Type Relation to Patient Date of Phone Billing Address Confidential [address] [id number] [place], [place] [id number] [place] [address] COMMERCIAL Advance Directives * Full Code (Latest Code Status on File) Date Activated Date Inactivated Comments 01/29/2020 7:08 PM 02/05/2020 2:20 PM Question Answer Comments Code Status Discussion: Not Discussed Care Teams Meter Setter Relationship Specialty Start Date End Date Edwige Robledo [place] [address] PCP - General Family Practice 07/21/23 Nilam Hernandez, RN, BSN Promotions Intern Registered Nurse 01/28/15
[2024-10-25 13:38] VITALS: BP 148/74; PULSE 73; RESP 14; TEMP 36.8; O2SAT 96
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
== END 2024-10-25 14:19 | disposition home or self-care (01) ==
PROVIDERS: Emergency Provider Emergency Medicine Emergency Medical Services; PCP Family Medicine
DX: N17.9 Acute kidney failure, unspecified (principal)
CPT/HCPCS: 99283; 99284

== ENCOUNTER 2025-03-09 17:03 | Outpatient (CLI) | payer MEDICARE, SELFPAY | END 2025-03-09 17:04 | disposition home or self-care (01) | LOC: AMB 03-13 19:02 | PROVIDERS: PCP Family Medicine; Visit Provider Internal Medicine | DX: S29.9XXA Unspecified injury of thorax, initial encounter (principal); W10.9XXA Fall (on) (from) unspecified stairs and steps, initial encounter; Y92.009 Unspecified place in unspecified non-institutional (private) residence as the place of occurrence of the external cause | CPT/HCPCS: A0425; A0433 ==

== ENCOUNTER 2025-03-09 17:34 | Inpatient (IN) | payer MEDICARE, SELFPAY ==
--- OUTSIDE RECORDS SUMMARY | 2025-03-09 17:37 | XMS_ITS | Clinical Summary ---
Author Organization [employer] Address [address] [place] [address] Care Team Providers Care Family And Consumer Sciences Teacher Name Role Phone Nilam Hernandez RN, BSN Unavailable Unavailab Edwige Burt DO Primary Care Provider [phone] Allergies Active Allergy Reactions Criticality Noted Date Comments Banana Anaphylaxis High 11/13/2019 Erythromycin 10/24/2008 Cephalexin Nausea And Vomiting 03/05/2009 Latex Hives 01/14/2009 Oxycodone Nausea Only 11/13/2019 Penicillins Hives 01/25/2007 Peanut Oil Anaphylaxis High 11/13/2019 Byron Rash 08/08/2024 Tetanus And Diphther. Tox (Pf) Angioedema 01/14 Medications ASPIRIN 81 MG TAB take 1 tablet (81mg) by oral route once daily 0 01/26/20 07 Active WalkerIndications: Acute respiratory failure with hypoxia (HC) Walker with front wheels for home use. 1 Device 02/04/20 20 Active albuterol HFA (PRO-AIR; VENTOLIN; PROVENTIL) 90 mcg/actuation inhalerIndications :Mild intermittent asthma without complication (HC) Inhale 2 Puffs by mouth every 4 hours if needed for Shortness of Breath 1st choice or Wheezing 1st choice. 18 g 1 07/21/19 24 Active cetirizine 10 mg tabletIndications: Itching Take 1 Tablet (10 mg) by mouth once daily. 30 Tablet 3 10/24/19 25 Active hydrocortisone 2.5 % ointmentIndication s:Itching Apply topically to affected area(s) 2 times daily if needed for Itching. 20 g 1 10/24/19 25 Active atorvastatin 20 mg tabletIndications: Mixed hyperlipidemia Take 1 Tablet (20 mg) by mouth once daily. 90 Tablet 2 10/24/19 25 Active magnesium oxide (MAG-OX 400) 400 mg tabletIndications: Low magnesium levels Take 1 Tablet (400 mg) by mouth once daily. 100 Tablet 2 11/20/19 25 Active amLODIPine (NORVASC) 5 mg tabletIndications: Hypertension, essential Take 1 Tablet (5 mg) by mouth two times daily. 180 Tablet 01/16/20 25 Active lisinopriL (PRINIVIL; ZESTRIL) 5 mg tabletIndications: Microalbuminuria,H ypertension, essential Take 1 Tablet (5 mg) by mouth once daily. 90 Tablet 02/13/20 25 Active FLUoxetine (PROZAC) 20 mg capsuleIndications :Anxiety Take 2 Capsules (40 mg) by mouth once daily. 60 Capsule 02/17/20 25 Active famotidine (PEPCID) 20 mg tabletIndications: Itching Take 1 Tablet (20 mg) by mouth two times daily. 180 Tablet 3 02/26/20 25 Active famotidine 20 mg tabletIndications: Itching Take 1 Tablet (20 mg) by mouth two times daily. 60 Tablet 3 10/24/19 25 025 Discontin ued(Reord er (E-cancel not sent)) lisinopriL 5 mg tabletIndications: Microalbuminuria,H ypertension, essential Take 1 Tablet (5 mg) by mouth once daily. 30 Tablet 2 10/24/19 25 025 Discontin ued(Reord er (E-cancel not sent)) FLUoxetine (PROZAC) 20 mg capsuleIndications :Anxiety Take 2 Capsules (40 mg) by mouth once daily. 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/bushra neg, 0/12 nodes Unspecified essential hypertension 12/05/2008 Type II or unspecified type diabetes mellitus without mention of complication, not stated as uncontrolled 01/28/2006 Resolved Problems Problem Noted Date Diagnosed Date Resolved Date Small bowel obstruction 01/30/2020 03/2 05/2023 Overview (07/15/2021): Surgery 01/2020 at [facility] with acute respiratory failure post op with transfer to [facility] 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 - laparotomy with take down of adhesions at [facility] 11/2020 Acute respiratory failure 01/30/2020 Overview (07/15/2021): S/P surgery for SBO Alcohol abuse 12/10/2009 12/23/2009 Vitamin D deficiency 09/08/2009 010 Encounters Date Type Department Care Team Description 02/25/2025 Refill [facility] [address] [place] [address] Edwige Robledo, DO Refill Request (Famotidine) 02/14/2025 Refill [facility] [address] [place] [address] Edwige Robledo, DO Refill Request (Fluoxetine HCL 20mg capsule ) 02/11/2025 Refill [facility] [address] [place] [address] Edwige Robledo, DO Refill Request (Lisinopril) 01/24/2025 Telephone [facility] [address] [place] [address] Edwige Robledo, DO REFERRAL 01/14/2025 Refill [facility] [address] [place] [address] Edwige Robledo, DO Refill Request (Amlodipine) 01/14/2025 Refill [facility] [address] [place] [address] Edwige Robledo, DO Refill Request (Amlodipine Besylate 5mg tab) 01/07/2025 Refill [facility] [address] [place] [address] Edwige Robledo, DO Refill Request (Fluoxetine HCL 20mg) 01/02/2025 Patient Outreach [facility] - Care Management Navigation/[facility] [address] [place] [address] Benjie Anton [facility] (Care Guide Annual Medicare Wellness Visit outreach/) from Last 3 Months Immunizations Immunization Administration Dates Next Due COVID-19 VACCINE SPIKEVAX (M ODERNA 50MCG/0.5ML) 12YO+ PFS 07/21/2023 COVID-19 vaccine (Pfizer-Bio NTech 30mcg/0.3mL) PF MDV 08/05/2020 Hepatitis B [...] or isolated from those around you? 0 11/19/2024 Financial Resource Strain Answer Date R ecorded Difficulty of Paying Living Expenses 3 11/19/2024 Difficulty of Paying Living Expenses Not on file 11/19/2024 Food Insecurity Answer Date Recorded Do you worry your food will run out before you are able to buy more? 1 11/19/2024 Transportation Needs Answer Date Record ed Does lack of transportation keep you from medica l appointments? 1 11/19/2024 Does lack of transportation keep you from work, meetings or getting things that you need? 1 11/19/2024 Housing Stability Answer Date Recorded What is your housing situation today? 1 11/19/2024 Utilities Answer Date Recorded Do you have trouble paying f or utilities (for example, heat, electricity, water, phone)? 1 11/19/2024 Comments No Sex and Gender Information Value Date Recorded Sex Assigned at Not on file Legal Sex Female 5:26 AM MEDICAID COLLECTION SPECIALIST Gender Identity Not on file Sexual Orientation Not on file Obstetrics History Para Term AB IAB SAB Ectopic Multiple Livin g Live Births 4 3 1 1 3 Date Outcome GA Total Labor Labor/2nd/3rd Weight Sex Type Anes PTL Alla A1 A5 Name Clin Para Para Para SAB Last Filed Vital Signs Vital Sign Reading Time Taken Comments Blood Pressure 169/90 11/19/2024 11:14 AM CDT Pulse 80 11/19/2024 11:14 AM CDT Temperature 37.1 C (98.8 F) 12/03/2020 3:39 PM CDT Respiratory Rate 20 02/05/2020 8:00 AM CDT Oxygen Saturation 98% 07/21/2023 10:45 AM CDT Inhaled Oxygen Concentration - - Weight 49 kg (108 lb) 11/19/2024 11:03 AM CDT Height 154.1 cm (5' 0.67) 02/11/2021 1:28 PM CD T Body Mass Index 20.63 02/11/2021 1:28 PM CDT Plan of Treatment Upcoming Encounters Date Type Department Care Team (Late st Contact Info) Description 03/14/2025 10:25 AM MEDICAID COLLECTION SPECIALIST Office Visit [facility] [address] [address] Edwige Robledo, [address] [address] Health Maintenance Due Date Last Done Comments [...] 10/23/2029 10/23/2024, 07/21/2023, 12/03/2020, Additional history exists Hepatitis B series for 19+ Completed 11/21, 05/30/2013, 04/20/2013 Hepatitis C screening for ag e 18-79 Completed 12/03/2020 Pneumococcal series for age 50+ Completed , 02/11/2021 Procedures Procedure Name Priority Date/Time Associated Diagnosis Comments LIPID PANEL W REFLEX MEASURED LDL Routine 10/23/2024 3:44 PM CDT Mixed hyperlipidemia ANTI HCV Routine 12/03/2020 [...] equation in the estimation of LDL-C. Tee SS et al. VERITO. 2013;310(19): 6068-5919 (http://education.Kidamom/faq/JTM357) CHOL/HDLC RATIO 2.5 <5.0 (calc) [facility] [...] Edwige Robledo DO CHEMISTRY Final Resu lt [employer] [facility] [address] [place] [address], [facility] [address] [place] [address] * ANTI HCV (12/03/2020 5:05 PM CDT) Pathologist [facility] HEPATITIS C ANTIBODY Non-React cindy Non-React cindy 12/04/2020 2:54 PM CDT [facility] Comment:Antibodies to HCV no t detected; does not exclude the possibility of exposure to HCV. Blood BLOOD SPECIMEN / Unknown Butterfly / Unknown 12/03/2020 5:05 PM CDT 12/03/2020 5:14 PM CDT us Marisol Fox MD SEND OUTS Final Result [facility] [address] [place] [address], [place] from Last 3 Months or Most Recently Relevant to Health Maintenance [facility] [employer] * Guarantor: BERNIE SAMANIEGO Account Type Relation to Patient Date of Phone Billing Address Confidential [address] [address] [facility] [place] [id number] Advance Directives * Full Code (Latest Code Status on File) Date Activated Date Inactivated Comments 01/29/2020 7:08 PM 02/05/2020 2:20 PM Question Answer Comments Code Status Discussion: Not Discussed Care Teams Family And Consumer Sciences Teacher Relationship Specialty Start Date End Date Edwige Robledo DO [address] [place] [address] PCP - General Family Practice 07/21/23 Nilam Hernandez, RN, BSN Senior Data Quality Analyst Registered Nurse 01/28/15
--- OUTSIDE RECORDS SUMMARY | 2025-03-09 17:37 | XMS_ITS | Clinical Summary ---
Author Organization [facility] Address [address] [place] [address] Phone Care Team Providers Care Mandate Retail Service Merchandiser Name Role Phone No, Pcp Primary Care Provider Social History Tobacco Use Types Packs/Day Years Used Date Smoking Tobacco: Never Assessed Comments Unknown Sex and Gender Information Value Date Recorded Sex Assigned at Not on file Legal Sex Female 2:53 PM EST Gender Identity Not on file Sexual Orientation Not on file Plan of Treatment Health Maintenance Due Date Last Done Comments Breast Cancer Screening 1955 Colorectal Cancer Screening: Annual FOBT 2005 Colorectal Cancer Screening: Colonoscopy 2005 Colorectal Cancer Screening: Sigmoidoscopy 2005 Pneumococcal Vaccine: 50+ Years (2 of 2 - PCV) 02/11/2022 02/11/2021 Diabetes: Ophthalmology Exam 06/14/2023 Diabetes: Pedal Pulse Checked 06/14/2023 Diabetes: Sensory Foot Exam 06/14/2023 Diabetes: Visual Foot Exam 06/14/2023 Diabetes: Hemoglobin A1C 10/21/2023 07/21/2023 Influenza Vaccine (#1) 2024 , 02/18/2020, 02/27/2018, Additional history exists Hepatitis B Vaccine Aged Out 11/21/2013, 05/30/2013, 04/20/2013 No longer eligible based on patient's age to complete this topic Insurance [facility] Medicare Care Teams Mandate Retail Service Merchandiser Relationship Specialty Start Date End Date No, Pcp PCP - General Internal Medicine 06/14/23
[2025-03-09 17:49] VITALS: BP 189/106; PULSE 83; RESP 16; TEMP 37.1; O2SAT 96; BMI 17.2
[2025-03-09 18:02] VITALS: BP 188/107; PULSE 67; RESP 16; O2SAT 96
--- NOTE | 2025-03-09 18:14 | ED_ITS ---
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 (Negative) Urine Blood (Negative) Urine Nitrite (Negative) Urine Bilirubin (Negative) Urine Urobilinogen (0.2-1.0) Ur Leukocyte Esterase (Negative) Urine RBC (0-2) Urine WBC (0-5) Ur Squamous Epith Cells (None-Few) Amorphous Sediment (None) Urine Bacteria (None) Salicylates (1.0-10) mg/dL Urine Opiates Screen (Negative) Ur Buprenorphine Scrn (Negative) Ur Oxycodone Screen (Negative) Urine Methadone Screen (Negative) Acetaminophen (10.0-30.0) ug/mL Ur Barbiturates Screen (Negative) U Tricyclic Antidepress (Negative) Ur Phencyclidine Scrn (Negative) Ur Amphetamines Screen (Negative) U Methamphetamines Scrn (Negative) U Benzodiazepines Scrn (Negative) Urine Cocaine Screen (Negative) U Marijuana (THC) Screen (Negative) Ur Drug Screen Comment Ethyl Alcohol (0.01-0.03) % Lab Acknowledgement Test Added <Toya Sahu MD - Last Filed: 03/09/25 23:07> Discharge Plan Discharge Condition: Improved <Ovi Rogers MD - Last Filed: 03/10/25 18:52> Activity Level: Activity as Tolerated <Ovi Rogers MD - Last Filed: 03/10/25 18:52> Activity as Tolerated <Toya Sahu MD - Last Filed: 03/09/25 23:07> Discharge Diet: Regular <Ovi Rogers MD - Last Filed: 03/10/25 18:52> Regular <Toya Sahu MD - Last Filed: 03/09/25 23:07> Procedures ABG Interpretation ABG Results: 03/09/25 19:51 VBG pH 7.308 L VBG pCO2 36 L VBG pO2 < 30.1 VBG HCO3 18 L <Ovi Rogers MD - Last Filed: 03/10/25 18:52> 03/09/25 19:51 VBG pH 7.308 L VBG pCO2 36 L VBG pO2 < 30.1 VBG HCO3 18 L <Toya Sahu MD - Last Filed: 03/09/25 23:07>
[2025-03-09 18:33] VITALS: PULSE 67; O2SAT 96
[2025-03-09 18:44] LABS: Hematocrit* 28.0 % (33.0-51.0); Hemoglobin* 9.2 gm/dL (12.0-16.0); Immature Granulocytes Pct Auto 0.3 %; Mean Corpuscular HGB Conc 33 gm/dL (32-36); Mean Corpuscular Hemoglobin 32 pg (26-34); Mean Corpuscular Volume 97 fL (80-100); RDW Coefficient of Variation % 12.0 % (11.5-15.5); Red Blood Count* 2.90 m/uL (4.00-5.20); White Blood Count* 3.89 K/uL (4.50-11.00)
[2025-03-09 18:47] LABS: Immature Granulocytes Abs Auto 0.00 K/uL (0.00-0.30); Lymphocytes Absolute Auto 1.20 K/uL (0.90-2.90); Slide Review Reflex No
[2025-03-09 18:54] LABS: Appearance Urine Clear (Clear)
[2025-03-09 19:00] LABS: Albumin* 4.2 g/dL (3.3-5.0); Chloride* 93 mmol/L (96-114); Sodium* 125 mmol/L (135-149)
[2025-03-09 19:01] LABS: Potassium* 3.3 mmol/L (3.6-5.1)
[2025-03-09 19:03] LABS: Alanine Aminotransferase* 16 U/L (4-35); Alkaline Phosphatase* 96 U/L (40-150); Anion Gap 17 mEq/L (7-15); Aspartate Amino Transferase* 36 U/L (12-35); Bilirubin Total* 0.5 mg/dL (0.1-1.5); Blood Urea Nitrogen* 12 mg/dL (7-30); Calcium* 8.1 mg/dL (8.4-10.6); Carbon Dioxide* 15 mmol/L (20-32); Creatinine* 1.4 mg/dL (0.5-1.5); Est. Creatinine Clearance* 27.54; Estimated Glomerular Filt Rate 41 ml/min; Glucose* 78 mg/dL (60-115); Total Protein* 7.6 g/dL (6.0-8.3)
[2025-03-09 19:04] LABS: Cannabinoid Screen Urine POSITIVE (Negative); Methamphetamines Screen Urine Negative (Negative)
[2025-03-09 19:04] LABS: Ethanol* 0.17 % (0.01-0.03)
[2025-03-09 19:05] LABS: Acetaminophen* < 10.0 ug/mL (10.0-30.0); Salicylate* < 1.0 mg/dL (1.0-10)
[2025-03-09 19:05] LABS: Tricyclic Antidepressant Urine Negative (Negative)
[2025-03-09 19:28] VITALS: BP 189/99; PULSE 76; RESP 20; O2SAT 98
[2025-03-09 20:07] LABS: HCO3 VBG 18 mmol/L (21-28); PCO2 VBG 36 mmHG (40-50); PO2 VBG < 30.1 mmHG (25-47); pH VBG 7.308 (7.32-7.43)
[2025-03-09 20:16] LABS: Lactate* 1.9 mmol/L (0.5-1.9)
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
[2025-03-09 21:21] VITALS: BP 177/85; RESP 17; TEMP 37.3; O2SAT 79; O2SAT 99; BMI 17.7
--- NOTE | 2025-03-09 21:23 | CRLHL7_ITS ---
For Patients: As a result of the Century Cures Act, medical imaging exams and procedure reports are released immediately into your electronic medical record. You may view this report before your referring provider. If you have questions, please contact your health care provider. INDICATION: Cough, wheezing. TECHNIQUE: Chest 1 view. COMPARISON: 08/08/2024. FINDINGS: Cardiovascular and mediastinum: Heart size and vasculature are normal in caliber and appearance. Lungs and pleural spaces: Unchanged bilateral reticular and ground-glass infiltrates, [id number]. No pleural effusion or pneumothorax. Bones and soft tissues: Cholecystectomy clips. Old bilateral clavicle fractures. No acute findings. IMPRESSION: No evidence of an acute pulmonary process in the setting of similar-appearing bilateral pulmonary fibrotic changes. Dictated by Pk Higuera MD @ 03/09/2025 9:57:15 PM (Electronically Signed)
[2025-03-09 21:30] VITALS: BP 177/85; PULSE 79; RESP 17; TEMP 37.3; O2SAT 99
[2025-03-09 22:55] LABS: Sodium* 127 mmol/L (135-149)
[2025-03-09] MEDS: POTASSIUM BICARB 25 MEQ EFFERVESCENT TAB PO (22:55)
[2025-03-09] MEDS: AMLODIPINE 5 MG TABLET PO (22:56)
[2025-03-09] MEDS: guaiFENesin 600 MG TAB.ER.12H PO (22:56)
[2025-03-09] MEDS: MAGNESIUM OXIDE 400 MG TABLET PO (22:56)
[2025-03-10 02:40] VITALS: BP 130/75; PULSE 68; RESP 18; TEMP 36.8; O2SAT 95
[2025-03-10 07:00] VITALS: RESP 16
[2025-03-10 07:04] LABS: HCO3 VBG 19 mmol/L (21-28); Hematocrit* 24.5 % (33.0-51.0); Hemoglobin* 8.0 gm/dL (12.0-16.0); Immature Granulocytes Abs Auto 0.00 K/uL (0.00-0.30); Immature Granulocytes Pct Auto 0.0 %; Mean Corpuscular HGB Conc 33 gm/dL (32-36); Mean Corpuscular Hemoglobin 31 pg (26-34); Mean Corpuscular Volume 96 fL (80-100); PCO2 VBG 33 mmHG (40-50); PO2 VBG 58.3 mmHG (25-47); RDW Coefficient of Variation % 12.0 % (11.5-15.5); Red Blood Count* 2.55 m/uL (4.00-5.20); White Blood Count* 4.18 K/uL (4.50-11.00); pH VBG 7.372 (7.32-7.43)
[2025-03-10 07:07] LABS: Lymphocytes Absolute Auto 1.10 K/uL (0.90-2.90); Slide Review Reflex No
[2025-03-10 07:20] LABS: Chloride* 100 mmol/L (96-114); Potassium* 4.0 mmol/L (3.6-5.1); Sodium* 128 mmol/L (135-149)
[2025-03-10 07:23] LABS: Anion Gap 10 mEq/L (7-15); Blood Urea Nitrogen* 15 mg/dL (7-30); Carbon Dioxide* 18 mmol/L (20-32); Creatinine* 1.4 mg/dL (0.5-1.5); Est. Creatinine Clearance* 28.42; Estimated Glomerular Filt Rate 41 ml/min
[2025-03-10 07:24] LABS: Calcium* 7.7 mg/dL (8.4-10.6); Glucose* 90 mg/dL (60-115)
[2025-03-10 07:42] VITALS: BP 147/82; PULSE 68; RESP 16; TEMP 36.8; O2SAT 95
[2025-03-10 07:43] VITALS: BP 147/82; PULSE 68; RESP 16; TEMP 36.8; O2SAT 98
--- NOTE | 2025-03-10 07:45 | PC.NURSE ---
Shift note ([id number]): Patient admitted from ED at?5. Pleasant, alert and cooperative with cares. No behaviors. Upon admission was oriented to person, place, situation, month and day, but not to year. Oriented to year at this time. Ambulated to bathroom with walker and assist of one. Had one incontient loose stool. Denied pain but was guarding right arm at times. Tolerating regular diet. Continues on 1500 fluid restriction.?
[2025-03-10] MEDS: MAGNESIUM IV 2 GM/50 ML PIGGYBACK IVPB (08:19)
[2025-03-10] MEDS: guaiFENesin 600 MG TAB.ER.12H PO (08:27)
[2025-03-10] MEDS: MAGNESIUM OXIDE 400 MG TABLET PO (08:27)
[2025-03-10] MEDS: MULTIVITAMIN/MINERALS 1 TABLET 1 TAB PO (08:27)
[2025-03-10] MEDS: AMLODIPINE 5 MG TABLET PO (08:28)
[2025-03-10] MEDS: OMEPRAZOLE 20 MG CAPSULE DR PO (08:28)
[2025-03-10] MEDS: THIAMINE 100 MG TABLET PO ×2 (08:28)
[2025-03-10] MEDS: FOLIC ACID 1 MG TABLET PO (08:28)
[2025-03-10] MEDS: SODIUM CHLORIDE 0.9 % (FLUSH) 10 ML SYRINGE 5 ML IVF (08:29)
[2025-03-10 08:58] LABS: Iron* 92 ug/dL (37-170)
[2025-03-10 09:09] LABS: Percent Iron Saturation 40 % (20-50); Total Iron Binding Capacity 231 ug/dL (265-497)
[2025-03-10 11:00] VITALS: BP 124/70; PULSE 70; RESP 16; TEMP 37.1; O2SAT 95
[2025-03-10 11:15] VITALS: BP 124/70; PULSE 70; RESP 16; TEMP 37.1; O2SAT 95
[2025-03-10] MEDS: 0.9 % SODIUM CHLORIDE 500 ML 500 ML IV (11:18)
[2025-03-10 11:48] LABS: Fecal Occult Blood* Negative (Negative)
[2025-03-10 13:16] LABS: Hematocrit* 25.4 % (33.0-51.0); Hemoglobin* 8.2 gm/dL (12.0-16.0); Immature Granulocytes Pct Auto 0.2 %; Mean Corpuscular HGB Conc 32 gm/dL (32-36); Mean Corpuscular Hemoglobin 32 pg (26-34); Mean Corpuscular Volume 98 fL (80-100); RDW Coefficient of Variation % 12.2 % (11.5-15.5); Red Blood Count* 2.60 m/uL (4.00-5.20); White Blood Count* 4.17 K/uL (4.50-11.00)
[2025-03-10 13:17] LABS: Immature Granulocytes Abs Auto 0.00 K/uL (0.00-0.30); Lymphocytes Absolute Auto 0.90 K/uL (0.90-2.90)
[2025-03-10 13:18] LABS: Slide Review Reflex No
[2025-03-10 13:33] LABS: Chloride* 103 mmol/L (96-114); Potassium* 4.1 mmol/L (3.6-5.1); Sodium* 132 mmol/L (135-149)
[2025-03-10 13:36] LABS: Anion Gap 13 mEq/L (7-15); Blood Urea Nitrogen* 15 mg/dL (7-30); Calcium* 7.7 mg/dL (8.4-10.6); Carbon Dioxide* 16 mmol/L (20-32); Creatinine* 1.5 mg/dL (0.5-1.5); Est. Creatinine Clearance* 26.52; Estimated Glomerular Filt Rate 38 ml/min; Glucose* 106 mg/dL (60-115)
--- NOTE | 2025-03-10 13:52 | P.DS_ITS ---
DS: Providers Provider Date Seen: 03/10/25 Date of admission: 03/09/25 22:00 Primary care physician: Edwige Robledo DO Admitting Clinician: Nannette Yu MD Attending Physician on discharge: Sumit López MD Date of Discharge: 03/10/25 DS: Diagnosis Discharge Diagnosis (1) Acute alcohol intoxication: Status: Acute Problem details: - admission ETOH 0.17 . Reports drinking 2 or 3 beers day of admission. No alcohol withdrawal during this hospital stay. Patient and again advised to completely abstain from alcohol. Same conversation in July of this year. They both agree with this. (2) Alcohol use disorder: Status: Acute Problem details: Recommend ongoing outpatient support for abstinence (3) Hypokalemia: Status: Acute Problem details: - give oral replacement, check magnesium level (h/o hypomagnesemia), potassium 4.1 on discharge. Recheck this week (4) Hypomagnesemia: Status: Acute Problem details: - replace and follow. Magnesium 1.0 on admission and 2.0 on discharge. Increased outpatient magnesium supplementation and recheck this week (5) Severe protein-calorie malnutrition: Status: Acute Problem details: - Weight loss of 3kg since 10/24/24, 6kg since 08/09/24. Ongoing outpatient monitoring. Patient denies nutritional problems at home (6) Weight loss, unintentional: Status: Acute Problem details: Eating well during this hospital stay. (7) Pulmonary fibrosis: Status: Acute Problem details: Stable but abnormal findings on radiographs. Asymmetry with more prominent findings on the right compared to the left (8) Altered mental status: Status: Acute Problem details: - suspect more due to alcohol intoxication than low sodium. Nothing focal. Treat with IVF, nutritional supplementation, absence of alcohol, monitor. (9) Metabolic acidosis: Status: Acute Problem details: - multifactorial: alcohol abuse, poor nutrition, stage 4 kidney disease. Outpatient follow-up. DS: Summary Hospital Course Hospital Course: Bernie Samaniego is a 69 year old female with a history of alcohol use disorder, breast cancer, lung cancer, hyponatremia, hypo magnesemia hypertension, chronic kidney disease, type 2 diabetes mellitus, and COPD who tells me that she called 911 today because her son was supposed to pick her up and he did not. She said that she has been feeling unwell with malaise and f atigue for about a month and a half and she has noted about a 20 lb weight loss over that time as well. Her son was going to common pick her up this evening to take her to his house, but when he did not show up she called 911 because she just could not take it anymore. She called her while I was in the room and I spoke with him over her phone. He has no idea why she called 911 and says that he had just been in the room with her and went to get her something to eat when EMS showed up at their house. She thinks she has been eating okay, but her said that she has only been eating once a day and even that meal is small. He says that he thinks she is not losing weight, ?she has always been small.? Both she and her tell me that she saw her cancer doctor recently and everything was okay. According to the most recent note from Dr. Sheth in August of this year, she was supposed to get a biopsy due to abnormal lymph nodes in the inguinal region on a PET scan in then she was supposed to return to Oncology after that. She had been lost to Oncology in follow-up before. She and her seem unaware of the biopsy and further follow-up. She also tells me that her vision has been getting worse and she is supposed to have cataracts removed later this month on the or . During my conversation with the patient's , he repeatedly asked me if she should stop drinking alcohol. I see documentation from our facility in July that she and her were advised that she should stop using alcohol and that they demonstrated understanding at that time. I also see in a clinic note at [facility] in October that she was advised to stop drinking alcohol. Patient is unclear of her home medications. She reports she is taking everything that is prescribed except she reports not having an albuterol inhaler. Recommend ongoing outpatient monitoring of medications with medication reconciliation. Status at Discharge Functional status at discharge: independent ambulation Overall status at discharge: patient is progressing back to baseline Time Spent with Patient Time attestation: Total time spent providing and/or coordinating discharge services: 50 minutes Time spent: Greater than 30 minutes Exam Narrative: Exam Narrative: She is alert appears in no distress. Speech is normal. She is oriented to her circumstances. She is forgetful of significant past medical history and medications. Head is without trauma. Eyes normal. Neck is supple without mass or adenopathy. Respirations with occasional fine crackles. Breathing is unlabored. No wheezing. Cardiovascular: S1, S2, regular rate and rhythm. Abdomen is soft without tenderness or mass. Extremities without edema. Const: Vital Signs, click to edit/add: Vital Signs - 24 hr 03/09/25 17:49 03/09/25 18:02 03/09/25 18:33 Temperature 98.7 F Pulse Rate 67 Pulse Rate [Pulse Oximeter] 83 67 Respiratory Rate 16 16 Blood Pressure [Le ft Arm] Blood Pressure [Ri ght Upper Arm] 189/106 H 188/107 H Pulse Oximetry 96 96 96 Oxygen Delivery Me thod Room Air Room Air Oxygen Flow Rate 03/09/25 19:28 03/09/25 21:21 03/09/25 21:21 Temperature 99.1 F Pulse Rate Pulse Rate [Pulse Oximeter] 76 Respiratory Rate 20 17 17 Blood Pressure [Le ft Arm] 177/85 H Blood Pressure [Ri ght Upper Arm] 189/99 H Pulse Oximetry 98 79 L 99 Oxygen Delivery Tx thod Room Air Room Air Room Air Oxygen Flow Rate 99 03/09/25 21:30 03/10/25 02:40 03/10/25 02:40 Temperature 99.1 F 98.3 F 98.3 F Pulse Rate Pulse Rate [Pulse Oximeter] 79 68 68 Respiratory Rate 17 18 18 Blood Pressure [Le ft Arm] 177/85 H 130/75 130/75 Blood Pressure [Ri ght Upper Arm] Pulse Oximetry 99 95 95 Oxygen Delivery Tx thod Room Air Room Air Room Air Oxygen Flow Rate 03/10/25 07:00 03/10/25 07:42 03/10/25 07:43 Temperature 98.2 F 98.2 F Pulse Rate Pulse Rate [Pulse Oximeter] 68 68 Respiratory Rate 16 16 16 Blood Pressure [Le ft Arm] 147/82 H 147/82 H Blood Pressure [Ri ght Upper Arm] Pulse Oximetry 95 98 Oxygen Delivery Me thod Room Air Room Air Oxygen Flow Rate 03/10/25 11:00 03/10/25 11:15 Temperature 98.7 F 98.7 F Pulse Rate Pulse Rate [Pulse Oximeter] 70 70 Respiratory Rate 16 16 Blood Pressure [Le ft Arm] 124/70 124/70 Blood Pressure [Ri ght Upper Arm] Pulse Oximetry 95 95 Oxygen Delivery Me thod Room Air Room Air Oxygen Flow Rate Documenting provider has reviewed patient's vital signs: yes DS: Data Data Completed and Pending Completed studies during hospitalization: Procedures Detoxification Services for Substance Abuse Treatment (08/08/24) Immobilization of Right Upper Extremity using Splint (08/08/24) Transfusion of Nonautologous Red Blood Cells into Peripheral Vein, Percutaneous Approach (08/08/24) Labs on day of discharge: Labs from last 24 hours 03/10/25 03/10/25 03/10/25 13:00 11:21 07:59 WBC 4.17 L RBC 2.60 L Hgb 8.2 L Hct 25.4 L MCV 98 MCH 32 MCHC 32 RDW Coeff of Latoya 12.2 Plt Count 196 Neut % (Auto) 63.6 Lymph % (Auto) 21.1 [place] % (Auto) 7.9 Eos % (Auto) 6.5 Baso % (Auto) 0.7 Neut # (Auto) 2.70 Lymph # (Auto) 0.90 [place] # (Auto) 0.30 Eos # (Auto) 0.30 Baso # (Auto) 0.00 Abs Immat Gran (auto) 0.00 Imm/Tot Granulo (auto) 0.2 VBG pH VBG pCO2 VBG pO2 VBG HCO3 Sodium 132 L Potassium 4.1 Chloride 103 Carbon Dioxide 16 L Anion Gap 13 BUN 15 Creatinine 1.5 Estimated Creat Clear 26.52 Estimated GFR 38 Glucose 106 Lactate Calcium 7.7 L Magnesium 2.0 Iron TIBC % Saturation Total Bilirubin AST ALT Alkaline Phosphatase Troponin I Total Protein Albumin TSH Urine Color Urine Appearance Urine pH Ur Specific [place] Urine Protein Urine Glucose (UA) Urine Ketones Urine Blood Urine Nitrite Urine Bilirubin Urine Urobilinogen Ur Leukocyte Esterase Urine RBC Urine WBC Ur Squamous Epith Cells Amorphous Sediment Urine Bacteria Stool Occult Blood Negative Salicylates Urine Opiates Screen Ur Buprenorphine Scrn Ur Oxycodone Screen Urine Methadone Screen Acetaminophen Ur Barbiturates Screen U Tricyclic Antidepress Ur Phencyclidine Scrn Ur Amphetamines Screen U Methamphetamines Scrn U Benzodiazepines Scrn Urine Cocaine Screen U Marijuana (THC) Screen Ur Drug Screen Comment Ethyl Alcohol Lab Acknowledgement Test Added 03/10/25 03/09/25 03/09/25 05:50 22:38 21:23 WBC 4.18 L RBC 2.55 L Hgb 8.0 L Hct 24.5 L MCV 96 MCH 31 MCHC 33 RDW Coeff of [place]oya 12.0 Plt Count 215 Neut % (Auto) 53.0 Lymph % (Auto) 26.6 [place] % (Auto) 10.8 Eos % (Auto) 8.6 H Baso % (Auto) 1.0 Neut # (Auto) 2.20 Lymph # (Auto) 1.10 [place] # (Auto) 0.50 Eos # (Auto) 0.40 Baso # (Auto) 0.00 Abs Immat Gran (auto) 0.00 Imm/Tot Granulo (auto) 0.0 VBG pH 7.372 VBG pCO2 33 L VBG pO2 58.3 H VBG HCO3 19 L Sodium 128 L 127 L Potassium 4.0 Chloride 100 Carbon Dioxide 18 L Anion Gap 10 BUN 15 Creatinine 1.4 Estimated Creat Clear 28.42 Estimated GFR 41 Glucose 90 Lactate Calcium 7.7 L Magnesium Iron 92 TIBC 231 L % Saturation 40 Total Bilirubin AST ALT Alkaline Phosphatase Troponin I Total Protein Albumin TSH Urine Color Urine Appearance Urine pH Ur Specific [place] Urine Protein Urine Glucose (UA) Urine Ketones Urine Blood Urine Nitrite Urine Bilirubin Urine Urobilinogen Ur Leukocyte Esterase Urine RBC Urine WBC Ur Squamous Epith Cells Amorphous Sediment Urine Bacteria Stool Occult Blood Salicylates Urine Opiates Screen Ur Buprenorphine Scrn Ur Oxycodone Screen Urine Methadone Screen Acetaminophen Ur Barbiturates Screen U Tricyclic Antidepress Ur Phencyclidine Scrn Ur Amphetamines Screen U Methamphetamines Scrn U Benzodiazepines Scrn Urine Cocaine Screen U Marijuana (THC) Screen Ur Drug Screen Comment Ethyl Alcohol Lab Acknowledgement Test Added 03/09/25 03/09/25 03/09/25 19:51 18:47 18:32 WBC 3.89 L RBC 2.90 L Hgb 9.2 L Hct 28.0 L MCV 97 MCH 32 MCHC 33 RDW Coeff of Latoya 12.0 Plt Count 219 Neut % (Auto) 52.7 Lymph % (Auto) 31.6 [place] % (Auto) 6.4 Eos % (Auto) 8.2 H Baso % (Auto) 0.8 Neut # (Auto) 2.10 Lymph # (Auto) 1.20 [place] # (Auto) 0.20 Eos # (Auto) 0.30 Baso # (Auto) 0.00 Abs Immat Gran (auto) 0.00 Imm/Tot Granulo (auto) 0.3 VBG pH 7.308 L VBG pCO2 36 L VBG pO2 < 30.1 VBG HCO3 18 L Sodium 125 L Potassium 3.3 L Chloride 93 L Carbon Dioxide 15 L Anion Gap 17 H BUN 12 Creatinine 1.4 Estimated Creat Clear 27.54 Estimated GFR 41 Glucose 78 Lactate 1.9 Calcium 8.1 L Magnesium 1.0 L Iron TIBC % Saturation Total Bilirubin 0.5 AST 36 H ALT 16 Alkaline Phosphatase 96 Troponin I < 0.01 Total Protein 7.6 Albumin 4.2 TSH 2.010 Urine Color Yellow Urine Appearance Clear Urine pH 5.5 Ur Specific [place] <= 1.005 Urine Protein 2+ A Urine Glucose (UA) Negative Urine Ketones Negative Urine Blood 1+ A Urine Nitrite Negative Urine Bilirubin Negative Urine Urobilinogen 0.2 Ur Leukocyte Esterase 2+ A Urine RBC 0-2 Urine WBC 10-25 A Ur Squamous Epith Cells Moderate A Amorphous Sediment Few A Urine Bacteria Moderate A Stool Occult Blood Salicylates < 1.0 L Urine Opiates Screen Negative Ur Buprenorphine Scrn Negative Ur Oxycodone Screen Negative Urine Methadone Screen Negative Acetaminophen < 10.0 Ur Barbiturates Screen Negative U Tricyclic Antidepress Negative Ur Phencyclidine Scrn Negative Ur Amphetamines Screen Negative U Methamphetamines Scrn Negative U Benzodiazepines Scrn Negative Urine Cocaine Screen Negative U Marijuana (THC) Screen POSITIVE A Ur Drug Screen Comment See Note Ethyl Alcohol 0.17 H Lab Acknowledgement Preliminary micro results at discharge 03/09/25 18:47 Urine Culture - Preliminary Urine,Clean Catch Culture in Progress Imaging Chest x-ray: Radiologist's impression: INDICATION: Cough, wheezing. TECHNIQUE: Chest 1 view. COMPARISON: 08/08/2024. FINDINGS: Cardiovascular and mediastinum: Heart size and vasculature are normal in caliber and appearance. Lungs and pleural spaces: Unchanged bilateral reticular and ground-glass infiltrates, [id number]. No pleural effusion or pneumothorax. Bones and soft tissues: Cholecystectomy clips. Old bilateral clavicle fractures. No acute findings. IMPRESSION: No evidence of an acute pulmonary process in the setting of similar-appearing bilateral pulmonary fibrotic changes. Discharge Plan Discharge Disposition: Home, Self-Care Date of Admission: 03/09/25 22:00 Attending Provider on Discharge: Chivo López Primary Care Provider: Edwieg Robledo Condition: Improved Anticipated Discharge Date/Time: 03/10/25 14:00 Discharge Medications: Continued fluoxetine 20 mg capsule 40 mg PO DAILY famotidine 20 mg tablet 20 mg PO BID omeprazole 20 mg Capsule,Delayed Release(Dr/Ec) 20 mg PO DAILY PRN amlodipine 5 mg tablet 5 mg PO BID Rx Instructions: Take 1 Tablet (5 mg) by mouth two times daily. atorvastatin 20 mg tablet 20 mg PO DAILY Rx Instructions: Take 1 Tablet (20 mg) by mouth once daily. lisinopril 5 mg tablet 5 mg PO DAILY Rx Instructions: Take 1 Tablet (5 mg) by mouth once daily. aspirin 81 mg tablet,chewable 81 mg PO DAILY Qty: 90 0RF Changed magnesium oxide 400 mg (241.3 mg magnesium) tablet 400 mg PO BID Qty: 60 0RF Rx Instructions: Take 1 Tablet (400 mg) by mouth once daily. Discharge Orders: Discharge Order (Routine); Ordered 03/10/25 Ordered By: Chivo López Additional Instructions: Evaluation in our hospital has shown multiple medical problems. These problems include electrolyte problems such as low sodium and low potassium and low magnesium, metabolic acidosis and anemia. All of these problems are either caused by or made worse by drinking alcohol. It is critically important for you to stop drinking if you want to maintain your independence and maintain your health. Activity Level: Activity as Tolerated Discharge Diet: Regular Follow Up Appointments: Edwige Robledo DO [Primary Care Provider, Family Practice] Referral Note: March 14 at 10:25 a.m.. Check basic metabolic panel, CBC and magnesium at that visit Forms: [facility] Info Instructions
--- NOTE | 2025-03-10 14:11 | PC.NURSE ---
Pt is back at baseline today. VSS. Denies pain. A&Ox4, intermittently forgetful. CIWA unremarkable. Incontinent of bowel and bladder. Appetite is poor, however tolerating a regular diet. Pt is discharging home via , they have no questions or concerns at this time.
== END 2025-03-10 14:30 | disposition home or self-care (01) | DRG 896 ==
LOC: ED 19:55 → MEDSURG 21:15
PROVIDERS: Family Medicine; Admitting Provider Family Medicine; Emergency Provider Internal Medicine; PCP Family Medicine; Visit Provider Family Medicine
DX: F10.229 Alcohol dependence with intoxication, unspecified (principal); E43 Unspecified severe protein-calorie malnutrition; E87.1 Hypo-osmolality and hyponatremia; C34.32 Malignant neoplasm of lower lobe, left bronchus or lung; N18.4 Chronic kidney disease, stage 4 (severe); E87.21 Acute metabolic acidosis; Z68.1 Body mass index [BMI] 19.9 or less, adult; Y90.6 Blood alcohol level of 120-199 mg/100 ml; E87.6 Hypokalemia; E86.0 Dehydration; E83.42 Hypomagnesemia; D64.9 Anemia, unspecified; R63.4 Abnormal weight loss; Z59.82 Transportation insecurity; Z91.89 Other specified personal risk factors, not elsewhere classified; I12.9 Hypertensive chronic kidney disease with stage 1 through stage 4 chronic kidney disease, or unspecified chronic kidney disease; E11.22 Type 2 diabetes mellitus with diabetic chronic kidney disease; F12.90 Cannabis use, unspecified, uncomplicated; J44.9 Chronic obstructive pulmonary disease, unspecified; K21.9 Gastro-esophageal reflux disease without esophagitis; E78.2 Mixed hyperlipidemia; Z87.891 Personal history of nicotine dependence; Z85.3 Personal history of malignant neoplasm of breast; Z91.148 Patient's other noncompliance with medication regimen for other reason
CPT/HCPCS: 36415; 71045; 80048; 80053; 80143; 80179; 80306; 80320; 81001; 81003; 82077; 82270; 82803; 83540; 83550; 83605; 83735; 84295; 84443; 84484; 85025; 87086; 93005; 97116; 97161; 97530; 99284; 99285; A9153; A9270; J3475; J7030

== ENCOUNTER 2025-04-03 12:36 | Inpatient (IN) | payer MEDICARE, SELFPAY ==
[2025-04-03] VITALS (16 sets, daily range): BP systolic 150–201; BP diastolic 73–105; PULSE 84–110; RESP 16–55; TEMP 36.9–37.3; O2SAT 82–98; BMI 17.7; BMI 19.1; BMI 19.2
--- OUTSIDE RECORDS SUMMARY | 2025-04-03 12:40 | XMS_ITS | Clinical Summary ---
Author Organization [facility] Address [address] [place] [id number] Care Team Providers Care Social Work Instructor Name Role Phone Nilam Hernandez RN, BSN Unavailable Unavailab Jany Burt DO Primary Care Provider [phone] Allergies Active Allergy Reactions Criticality Noted Date Comments Banana Anaphylaxis High 11/13/2019 Erythromycin 10/24/2008 Cephalexin Nausea And Vomiting 03/05/2009 Latex Hives 01/14/2009 Oxycodone Nausea Only 11/13/2019 Penicillins Hives 01/25/2007 Peanut Oil Anaphylaxis High 11/13/2019 [place] Rash 08/08/2024 Tetanus And Diphther. Tox (Pf) Angioedema 01/14 Medications ASPIRIN 81 MG TAB take 1 tablet (81mg) by oral route once daily 0 01/26/20 07 Active WalkerIndications: Acute respiratory failure with hypoxia (HC) Walker with front wheels for home use. 1 Device 02/04/20 20 Active cetirizine 10 mg tabletIndications: Itching Take [...] daily. 100 Tablet 2 11/20/19 25 Active lisinopriL (PRINIVIL; ZESTRIL) 5 mg tabletIndications: Microalbuminuria,H ypertension, essential Take 1 Tablet (5 mg) by mouth once daily. 90 Tablet 02/13/20 25 Active famotidine (PEPCID) 20 mg tabletIndications: Itching Take 1 Tablet (20 mg) by mouth two times daily. 180 Tablet 3 02/26/20 25 Active omeprazole (PRILOSEC) 20 mg Delayed-Release capsule Take 1 Capsule by mouth once daily. 08/14/19 25 Active albuterol HFA (PRO-AIR; VENTOLIN; PROVENTIL) 90 mcg/actuation inhalerIndications :Mild intermittent asthma without complication (HC) Inhale 2 Puffs by mouth every 4 hours if needed for Shortness of Breath 1st choice or Wheezing 1st choice. 18 g 1 03/18/20 25 Active amLODIPine (NORVASC) 5 mg tabletIndications: Hypertension, essential Take 1 Tablet (5 mg) by mouth once daily. 180 Tablet 03/18/20 25 Active FLUoxetine (PROZAC) 20 mg capsuleIndications :Anxiety Take 2 Capsules (40 mg) by mouth once daily. 60 Capsule 03/20/20 25 Active albuterol HFA (PRO-AIR; VENTOLIN; PROVENTIL) 90 mcg/actuation inhalerIndications :Mild intermittent asthma without complication (HC) Inhale 2 Puffs by mouth every 4 hours if needed for Shortness of Breath 1st choice or Wheezing 1st choice. 18 g 1 07/21/19 24 025 Discontin ued(Reord er (E-cancel not sent)) amLODIPine (NORVASC) 5 mg tabletIndications: Hypertension, essential Take 1 Tablet (5 mg) by mouth two times daily. 180 Tablet 01/16/20 25 025 Discontin ued(*Medi cation adjustmen t) FLUoxetine (PROZAC) 20 mg capsuleIndications :Anxiety Take 2 Capsules (40 mg) by mouth once daily. 60 Capsule 02/17/20 25 025 Discontin ued(Reord er (E-cancel not sent)) Active Problems Problem Noted Date Diagnosed Date Fracture of right wrist 03/14/2025 Elbow fracture, right 03/14/2025 HARMONY (acute kidney injury) 03/14/2025 Malignant neoplasm of lung 03/14/2025 Overview (03/14/2025): AI Summary: The patient had a history of lung cancer, for which she had chemotherapy and completed treatment, and it was apparently deemed to be in remission. She was due for final follow-up with oncology for lung cancer, but did not schedule an appointment after being advised to follow up in the summer; she was last seen by oncology in 10/2019. A head CT looked okay, despite a history of brain metastases with lung cancer. Recent encounter dx: 08/08/24: Admitted Inpatient - [facility]U (from [facility]) 07/21/23: Appointment - [facility] 07/15/21: Appointment - [facility] 02/10/21: Support OP Encounter - [facility] 02/18/20: Appointment - [facility] Recent studies: 10/24/19: CT CHEST ABDOMEN PELVIS WO by Marisol Fox MD, Wilmer Romo MD ... [+] Indication: Anemia, history of lung cancer Recent notes: 08/08/24: H&P - [facility], EDYTA DALY, 08/08/2024 by JANY ROBLEDO ... [-] quit smoking in 2014 with dx of lung cancer; lost to follow up apparently. 07/21/23: Progress Notes by Jany Robledo DO ... [-] Shares that she has had chemo a few times - first for breast cancer, then lung cancer. ... [-] Think that lung cancer is in remission. 07/15/21: Progress Notes by Marisol Fox MD ... [+] Bernie Campbell is a 66 y.o. with a history of alcoholism, breast cancer, metastatic lung cancer, chronic kidney disease, hypomagnesemia, and hyponatremia presents for follow-up of her medical issues and renewal of her medications. ... [+] CKD: Patient has chronic renal disease dating back to July 2015 when she was being treated for lung cancer. ... [-] Has not had any recent follow up of her lung cancer.Saw oncology 10/2019 and was advised to follow up in summer 2020 but did not schedule. ... [+] ? Lung cancer (HC) 12/03/20: Progress Notes by Marisol Fox MD ... [+] Bernie Campbell is a 65 y.o. female with a past medical history significant for stage III renal disease, history of alcoholism, hypertension, hypomagnesemia,status post treatment for lung cancer and breast cancer , initially who scheduled appointment for follow-up of her chronic medical problems as she has not been seen since January 2020 after her hospitalization for small bowel obstruction... 02/05/20: Discharge Summary by Rico Holt MD ... [+] Bernie Campbell is a 64 y.o. female with a past medical history pertinent for lung cancer in remission, DM, and breast cancer who was admitted to [facility] on 01/29/20 after presenting with small bowel obstruction. ... [+] She completed treatment for her metastatic lung cancer and was apparently deemed to be in remission. Malignant neoplasm of breast 03/14/2025 Overview (03/14/2025): AI Summary: The patient had a history of breast cancer, which was diagnosed around 01/20/2009 and treated with bilateral mastectomy and chemotherapy. The patient's breast cancer was an infiltrating ductal carcinoma, ER, [place] and HER-2/bushra negative, with 0/12 nodes, and was reportedly in remission for 5 years as of 05/09/2014. A complication of breast cancer treatment was mentioned, which responded well to Neurontin. Recent encounter dx: 08/08/24: Admitted Inpatient - [facility] (from [facility]) 02/10/21: Support OP Encounter - [facility] 04/20/13: Appointment - [facility] 04/12/13: Support OP Encounter - [facility] 01/09/13: Support OP Encounter - [facility] Recent studies: 03/11/09: Nuclear Medicine - BONE SCAN/WHOLE BODY, [facility], 03/11/09 by ANTONIO COTTER ... [+] CLINICAL HISTORY: Breast cancer, evaluate for metastasis 01/28/09: XR CHEST PA & LATERAL * by Sam Espino, ... [+] CLINICAL HISTORY: Breast carcinoma. 01/24/09: MR Breast Bilateral w/wo Contrast * by Ze Pino MD, Janay Romero MD ... [+] CLINICAL HISTORY: 53-year-old woman with a newly diagnosed RIGHT breast cancer. ... [+] The pathologic evaluation showed infiltrating ductal carcinoma, [place] grade II of III. ... [+] INDICATION FOR BREAST MRI: Staging of newly diagnosed breast cancer. ... [-] Evaluate for multicentric or contralateral occult breast cancer. ... [-] IMPRESSIONS AND RECOMMENDATIONS: 1) 3.9 cm in greatest dimension mass - the recently diagnosed breast cancer. Recent notes: 08/08/24: H&P - [facility], EDYTA DALY, 08/08/2024 by JANY ROBLEDO ... [-] (12) Breast cancer: ... [+] Status post bilateral mastectomy in January of 2009 with infiltrating ductal carcinoma. ... [+] Alcohol use, unspecified, uncomplicated (ICD-10) Breast cancer C50.919 08/12/21: Progress Notes - RENAL CONSULTATION - RENAL CONSULTATION by Surendra Graff MD ... [+] She had breast cancer as well in 2008, had double mastectomy and chemotherapy. ... [+] ? Breast cancer (HC) 01/20/2009 ... [+] Right breast cancer, now S/P bilateral mastectomy 01/30/09, ... [+] Infiltrating ductal carcinoma, ER, [place] and HER-2/bushra neg, 0/12 nodes ... [+] Hx of Breast cancer in 2008, in remission 07/15/21: Progress Notes by Marisol Fox MD ... [+] Bernie Campbell is a 66 y.o. with a history of alcoholism, breast cancer, metastatic lung cancer, chronic kidney disease, hypomagnesemia, and hyponatremia presents for follow-up of her medical issues and renewal of her medications. ... [+] ? Breast cancer (HC) 01/20/2009 ... [+] Complication of breast cancer treatment; responding well to Neurontin ... [+] bilateral , r breast cancer 02/11/21: Progress Notes by Marisol Fox MD ... [+] ? Breast cancer (HC) C50.919 12/03/20: Progress Notes by Marisol Fox MD ... [+] Bernie Campbell is a 65 y.o. female with a past medical history significant for stage III renal disease, history of alcoholism, hypertension, hypomagnesemia,status post treatment for lung cancer and breast cancer , initially who scheduled appointment for follow-up of her chronic medical problems as she has not been seen since January 2020 after her hospitalization for small bowel obstruction... Stage 4 chronic kidney disease 08/20/2024 Overview (03/14/2025): 08/08/24: Cr 2.3 mg/dL 08/08/24: GFR 23 mL/min 08/08/24: BUN 18 mg/dL On meds: lisinopril Chronic obstructive airway disease 07/21/2023 Overview (03/14/2025): AI Summary: The patient had a history of COPD, as noted on 07/21/2023. 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 It was mentioned that the patient denied a history of COPD on 05/09/2014, but COPD was presumed based on smoking history and x-ray. 08/08/24: SpO2 95.0 % 10/23/24: HR 76 /min On meds: albuterol Recent encounter dx: 10/23/24: Appointment - [facility] 07/21/23: Appointment - [facility] 12/07/20: Admitted Inpatient - [facility] (from [facility]) Recent notes: 10/23/24: Progress Notes - Nursing Notes by Jany Robledo DO ... [+] Chronic obstructive pulmonary disease, unspecified COPD type (HC) J44.9 07/21/23: Progress Notes by Jany Robledo DO ... [-] Bernie Campbell is a 68 y.o. female with PMHx CKD, T2DM, breast cancer s/p bilateral mastectomy, squamous cell carcinoma of lungs, COPD, and hyperlipidemia here for Medication Management (fluoxetine 40mg) and Immunization/Injection ... [+] Notes that she has a history of COPD. ... [+] Chronic obstructive pulmonary disease, unspecified COPD type (HC) 08/12/21: Progress Notes - RENAL CONSULTATION by Surendra Graff MD ... 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 Chronic GERD 02/11/2021 Altered mental status 01/30/2020 CKD (chronic kidney disease) stage 3, GFR 30-59 ml/min 08/12/2017 Anxiety 10/24/2015 Squamous cell carcinoma of lungs, bilateral - st age 5 04/17/2015 Overview (07/15/2021): Diagnosis 2015 Cisplatin/gemcitabine Lost to follow up - saw oncology 2017 [id number] Lost to follow up CT abdomen with [...] bilateral mastectomy 01/30/09, Infiltrating ductal carcinoma, ER, [place] and HER-2/bushra neg, 0/12 nodes Unspecified essential hypertension 12/05/2008 Type II or unspecified type diabetes mellitus without mention of complication, not stated as uncontrolled 01/28/2006 Resolved Problems Problem Noted Date Diagnosed Date Resolved Date Small bowel obstruction 01/30/2020 03/2 05/2023 Overview (07/15/2021): Surgery 01/2020 at [facility] with acute respiratory failure post op with transfer to [facility] 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 - laparotomy with take down of adhesions at [facility] 11/2020 Acute respiratory failure 01/30/2020 Overview (07/15/2021): S/P surgery for SBO Alcohol abuse 12/10/2009 12/23/2009 Vitamin D deficiency 09/08/2009 010 Encounters Date Type Department Care Team Description 04/03/2025 Telephone [facility] [address] [place] [address] Jany Robledo, DO call back (call back ) 04/02/2025 Nurse Triage [facility] [address] [place] [address] Jany Robledo, DO Breathing Problem 03/25/2025 Nurse Triage [facility] [address] [place] [address] Jany Robledo, DO Leg Swelling (bilateral ) 03/19/[address] [address] Jany Robledo, Refill Request (Fluoxetine HCL 20mg) 03/18/2025 10:00 AM SALES AND CATERING COORDINATOR Office Visit [address] [address] Jany Robledo, Preoperative Exam (03/21 and 03/26 cateracts) 03/18/2025 Travel 03/13/[address] [address] Jany Robledo, Appointment 02/25/[address] [address] Jany Robledo, Refill Request (Famotidine) 02/14/[address] [address] Jany Robledo, Refill Request (Fluoxetine HCL 20mg capsule ) 02/11/[address] [address] Jany Robledo, Refill Request (Lisinopril) 01/24/[address] [address] Jany Robledo, DO REFERRAL 01/14/2025 Refill [facility] [address] [place] [address] Jany Robledo, DO Refill Request (Amlodipine) 01/14/2025 Refill [facility] [address] [place] [address] Jany Robledo, DO Refill Request (Amlodipine Besylate 5mg tab) 01/07/2025 Refill [facility] [address] [place] [address] Jany Robledo, DO Refill Request (Fluoxetine HCL 20mg) 01/02/2025 Patient Outreach [facility] Care Management - Care Management Navigation/CartoDB [facility] [place] [address] Benjie [facility] (Care Guide Annual Medicare Wellness Visit outreach/) from Last 3 Months Immunizations Immunization Administration Dates Next Due COVID-19 VACCINE SPIKEVAX (M ODERNA 50MCG/0.5ML) 12YO+ PFS 07/21/2023 COVID-19 vaccine (Pfizer-Bio NTech 30mcg/0.3mL) PF, MDV 08/05/2020 Hepatitis B [...] isolated from those around you? 0 11/19/2024 Alcohol Use Answer Date Recorded How often do you have a drink containing alcohol ? 1 03/18/2025 How many drinks containing a lcohol do you have on a typical day when you are drinking? 0 03/18/2025 How often do you have five or more drinks on one occasion? 0 03/18/2025 Financial Resource Strain Answer Date R ecorded [...] on file Legal Sex Female 5:26 AM SALES AND CATERING COORDINATOR Gender Identity Not on file Sexual Orientation Not on file Obstetrics History Para Term AB IAB SAB Ectopic Multiple Livin g Live Births 4 3 1 1 3 Date Outcome GA Total Labor Labor/2nd/3rd Weight Sex Type Anes PTL Alla A1 A5 Name Clin Para Para Para SAB Last Filed Vital Signs Vital Sign Reading Time Taken Comments Blood Pressure 158/82 03/18/2025 10:50 AM SALES AND CATERING COORDINATOR Pulse 77 03/18/2025 10:12 AM SALES AND CATERING COORDINATOR Temperature 37.1 C (98.8 F) 12/03/2020 3:39 PM CDT Respiratory Rate 20 02/05/2020 8:00 AM CDT Oxygen Saturation 97% 03/18/2025 10:12 AM SALES AND CATERING COORDINATOR Inhaled Oxygen Concentration - - Weight 47.8 kg (105 lb 6.4 oz) 03/18/2025 10:12 AM SALES AND CATERING COORDINATOR Height 154.1 cm (5' 0.67) 02/11/2021 1:28 PM CD T Body Mass Index 20.13 02/11/2021 1:28 PM CDT Plan of Treatment Health Maintenance Due Date Last Done Comments RSV vaccine for adults or (1 - Risk 50-74 years 1-dose series) 2006 Colonoscopy through age 75 08/26/202008/26 [facility] DEXA/DXA scan for age 65+ 2021 Medicare Wellness for age 65+ 2021 Zoster (shingles) series for age 50+ (2 of 2) 04/24/2021 02/27/2021, 04/20/2013 BMI (ht and wt on same day) for age 18+ 02/11/2022 02/11/2021, 09/21/2018, 02/27/2018, Additional history exists Depression screening for age 12+ 07/21/2024 07/22/2023, 07/21/2023, 02/11/2021, Additional history exists COVID-19 vaccine series ( season) 2024 04/06/2024, 07/21/2023, 03/02/2021, Additional history [...] PM CDT) CHOLESTEROL, TOTAL 197 <200 mg/dL [facility] HDL CHOLESTEROL 79 > OR = 50 mg/dL [facility] TRIGLYCERIDES 95 <150 mg/dL [facility] LDL-CHOLESTEROL 99 mg/dL (calc) [facility] Comment: Reference range: <100 Desirable range <100 mg/dL for primary prevention; <70 mg/dL for patients with CHD or diabetic patients with > or = 2 CHD risk factors. LDL-C is now calculated using the Jacqueline calculation, which is a validated novel method providing better accuracy than the Friedewald equation in the estimation of LDL-C. Tee SS et al. VERITO. 2013;310(19): 0387-7332 (http://education.[employer]/faq/CYP284) CHOL/HDLC RATIO 2.5 <5.0 (calc) [facility] NON HDL CHOLESTEROL 118 <130 mg/dL (calc) [facility] Comment: For patients with diabetes plus 1 major ASCVD risk factor, treating to a non-HDL-C goal of <100 mg/dL (LDL-C of <70 mg/dL) is considered a therapeutic option. Blood BLOOD SPECIMEN / Unknown 10/23/2024 3:44 PM CDT 10/23/2024 3:45 PM CDT Jany Robledo DO CHEMISTRY Final Resu lt Vite [facility] [address] [place] [address], [facility] [address] [place] [address] * ANTI HCV (12/03/2020 5:05 PM CDT) [facility] HEPATITIS C ANTIBODY Non-React cindy Non-React cindy 12/04/2020 2:54 PM CDT [facility] Comment:Antibodies to HCV no t detected; does not exclude the possibility of exposure to HCV. Blood BLOOD SPECIMEN / Unknown Butterfly / Unknown 12/03/2020 5:05 PM CDT 12/03/2020 5:14 PM CDT us Marisol Fox MD SEND OUTS Final Result [facility] [address] [place] [address], [place] from Last 3 Months or Most Recently Relevant to Health Maintenance Insurance [facility] AET[employer] * Guarantor: BERNIE CAMPBELL Account Type Relation to Patient Date of Phone Billing Address Confidential [id number] [place], [place] [id number] [place] [address] [place] [id number] Advance Directives * Full Code (Latest Code Status on File) Date Activated Date Inactivated Comments 01/29/2020 7:08 PM 02/05/2020 2:20 PM Question Answer Comments Code Status Discussion: Not Discussed Care Teams Social Work Instructor Relationship Specialty Start Date End Date [place] [address] [address] PCP - General Family Practice 07/21/23 Nilam Hernandez, RN, BSN Supervisor [employer] Registered Nurse 01/28/15
--- NOTE | 2025-04-03 13:20 | CRLHL7_ITS ---
For Patients: As a result of the Century Cures Act, medical imaging exams and procedure reports are released immediately into your electronic medical record. You may view this report before your referring provider. If you have questions, please contact your health care provider. INDICATION: Short of breath COMPARISON: 03/09/2025, 08/28/2024 TECHNIQUE: 1 view chest radiograph. FINDINGS: Devices: None Similar appearance of the lungs. Right much worse than left scarring and reticulation/distortion. Low right lung volumes. No acute consolidation. No pulmonary edema. No pleural effusion. No pneumothorax. No pneumomediastinum. Heart size is distorted by mediastinal shift and patient rotation. Surgical screw in the right humeral head. No acute appearing bone findings. IMPRESSION: Underlying asymmetric fibrotic lung disease. No acute appearing pulmonary findings. Dictated by Chica Rodriguez MD @ 04/03/2025 2:18:07 PM (Electronically Signed)
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
[2025-04-03 13:43] LABS: Hematocrit* 27.2 % (33.0-51.0); Hemoglobin* 8.6 gm/dL (12.0-16.0); Immature Granulocytes Abs Auto 0.02 K/uL (0.00-0.30); Immature Granulocytes Pct Auto 0.2 %; Mean Corpuscular HGB Conc 32 gm/dL (32-36); Mean Corpuscular Hemoglobin 30 pg (26-34); Mean Corpuscular Volume 96 fL (80-100); RDW Coefficient of Variation % 12.4 % (11.5-15.5); Red Blood Count* 2.83 m/uL (4.00-5.20); White Blood Count* 8.53 K/uL (4.50-11.00)
[2025-04-03 13:47] LABS: Lymphocytes Absolute Auto 1.40 K/uL (0.90-2.90); Slide Review Reflex No
[2025-04-03] MEDS: ALBUTEROL SULFATE 2.5 MG/3 ML VIAL.NEB NEB (13:55)
[2025-04-03 13:58] LABS: Chloride* 106 mmol/L (96-114); Potassium* 4.3 mmol/L (3.6-5.1); Sodium* 138 mmol/L (135-149)
[2025-04-03 14:01] LABS: Anion Gap 17 mEq/L (7-15); Blood Urea Nitrogen* 23 mg/dL (7-30); Calcium* 8.3 mg/dL (8.4-10.6); Carbon Dioxide* 15 mmol/L (20-32); Creatinine* 2.2 mg/dL (0.5-1.5); Est. Creatinine Clearance* 17.80; Estimated Glomerular Filt Rate 24 ml/min; Glucose* 98 mg/dL (60-115)
[2025-04-03 14:23] LABS: PCR FLU A Negative PCR FLU A (Negative); PCR FLU B Negative PCR FLU B (Negative); PCR RSV Negative PCR RSV (Negative); SARS PCR* Negative SARS-CoV-2 (Negative)
[2025-04-03] MEDS: MAGNESIUM IV 2 GM/50 ML PIGGYBACK IVPB ×2 (14:37→16:52)
[2025-04-03 14:42] LABS: D Dimer Quantitative* 2.01 ug/ml (0.00-0.50)
[2025-04-03] MEDS: LACTATED RINGERS 1000 ML 1,000 ML IV ×2 (15:11→16:52)
--- NOTE | 2025-04-03 17:12 | CRLHL7_ITS ---
For Patients: As a result of the Century Cures Act, medical imaging exams and procedure reports are released immediately into your electronic medical record. You may view this report before your referring provider. If you have questions, please contact your health care provider. INDICATION: Shortness of breath. TECHNIQUE: CT chest PE was acquired with 95 cc Isovue 370 IV contrast. MIP reconstructions were performed. COMPARISON: August 28 2024. FINDINGS: Heart and vasculature: Contrast opacification of the pulmonary arterial tree is adequate. No sign of pulmonary embolism. Heart size is normal. Coronary artery calcifications. Thoracic aorta and pulmonary artery are normal in caliber. Lungs and pleura: Worsening subpleural predominant reticulation with interval development of mosaic attenuation/interstitial thickening, greater in the right lung. No pleural effusions or pneumothoraces. Lymph nodes/mediastinum: Tiny hiatal hernia. No mediastinal, hilar, or axillary adenopathy. Chest wall: Bilateral breast implants. No masses. Upper abdomen: No acute or significant findings. Bones: Unremarkable for age. IMPRESSION: No pulmonary embolism. Worsening subpleural predominant reticulation with interval development of mosaic attenuation/interstitial thickening, greater in the right lung likely a combination of worsening interstitial lung disease/pulmonary fibrosis with superimposed pneumonia in the appropriate clinical setting. Coronary artery calcifications. Please note that all CT scans at this facility use dose modulation, iterative reconstruction, and/or weight-based dosing when appropriate to reduce radiation dose to as low as reasonably achievable. Dictated by Arik Carrizales MD @ 04/03/2025 5:55:52 PM (Electronically Signed)
[2025-04-03] MEDS: cefTRIAXone 1 GM in 0.9 % SODIUM CHLORIDE Mini-bag 100 ML IVPB (19:17)
[2025-04-03 21:08] LABS: Chloride* 104 mmol/L (96-114); Sodium* 137 mmol/L (135-149)
[2025-04-03 21:09] LABS: Potassium* 4.2 mmol/L (3.6-5.1)
[2025-04-03 21:12] LABS: Anion Gap 19 mEq/L (7-15); Blood Urea Nitrogen* 22 mg/dL (7-30); Calcium* 8.5 mg/dL (8.4-10.6); Carbon Dioxide* 14 mmol/L (20-32); Creatinine* 1.9 mg/dL (0.5-1.5); Est. Creatinine Clearance* 22.35; Estimated Glomerular Filt Rate 28 ml/min; Glucose* 108 mg/dL (60-115)
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
[2025-04-03 22:13] LABS: Procalcitonin* 0.10 ng/mL (<0.50)
[2025-04-03 22:34] LABS: HCO3 VBG 18 mmol/L (21-28); PCO2 VBG 33 mmHG (40-50); PO2 VBG 46.0 mmHG (25-47); pH VBG 7.347 (7.32-7.43)
[2025-04-03] MEDS: AZITHROMYCIN 250 MG TABLET 500 MG PO (23:01)
[2025-04-03] MEDS: METHYLPREDNISOLONE SOD SUCC 62.5 MG/ML (125) 125 MG IVP (23:03)
[2025-04-03] MEDS: IPRAT-ALBUT 0.5-2.5 MG/3 ML NEB 1 NEB IH (23:06)
[2025-04-03 23:31] LABS: NT Pro B Type NatriureticPept* 11500 pg/mL (See Note)
[2025-04-03] MEDS: MELATONIN 3 MG TABLET PO (23:36)
[2025-04-03] MEDS: ACETAMINOPHEN 325 MG TABLET PO (23:37)
[2025-04-04] VITALS (15 sets, daily range): BP systolic 139–172; BP diastolic 76–93; PULSE 69–99; RESP 16–22; TEMP 36.8–37.1; O2SAT 85–96
[2025-04-04] MEDS: FUROSEMIDE 10 MG/ML inj 40 MG IVP (00:27)
[2025-04-04] MEDS: IPRAT-ALBUT 0.5-2.5 MG/3 ML NEB 1 NEB IH ×4 (04:29→21:04)
[2025-04-04 06:59] LABS: HCO3 VBG 20 mmol/L (21-28); PCO2 VBG 36 mmHG (40-50); PO2 VBG 36.7 mmHG (25-47); pH VBG 7.345 (7.32-7.43)
--- NOTE | 2025-04-04 06:59 | PC.NURSE ---
Shift note ([id number]): Patient admitted from ED at?1945. Pleasant, alert and oriented. Ambulated with 4 wheeled walker and assist of one. Given PRN Tylenol for pain in left shoulder rated 8/10. Reports new pain from laying in ED bed. Tylenol effective. Given PRN Melatonin for sleep. Regular diet. Had one incontinent loose stool after eating some yogurt. Reports was not having loose stools prior to admission. Drinking adequate water. Urine pale yellow and clear. Needed O2 at 0.5LPM via NC at times to keep sats above 88% while sleeping. ?
[2025-04-04 07:07] LABS: Hematocrit* 23.9 % (33.0-51.0); Mean Corpuscular HGB Conc 32 gm/dL (32-36); Mean Corpuscular Hemoglobin 30 pg (26-34); Mean Corpuscular Volume 94 fL (80-100); Red Blood Count* 2.54 m/uL (4.00-5.20); White Blood Count* 7.68 K/uL (4.50-11.00)
[2025-04-04 07:38] LABS: Hemoglobin* 7.7 gm/dL (12.0-16.0); Slide Review Reflex No
[2025-04-04 08:01] LABS: Chloride* 100 mmol/L (96-114); Sodium* 133 mmol/L (135-149)
[2025-04-04 08:02] LABS: Potassium* 3.7 mmol/L (3.6-5.1)
[2025-04-04 08:04] LABS: Blood Urea Nitrogen* 24 mg/dL (7-30); Creatinine* 2.0 mg/dL (0.5-1.5); Est. Creatinine Clearance* 20.80; Estimated Glomerular Filt Rate 27 ml/min
[2025-04-04 08:05] LABS: Anion Gap 15 mEq/L (7-15); Calcium* 8.5 mg/dL (8.4-10.6); Carbon Dioxide* 18 mmol/L (20-32); Glucose* 212 mg/dL (60-115)
[2025-04-04] MEDS: cefTRIAXone 1 GM in 0.9 % SODIUM CHLORIDE Mini-bag 100 ML IVPB (09:38)
[2025-04-04] MEDS: AMLODIPINE 5 MG TABLET PO (09:42)
[2025-04-04] MEDS: FLUOXETINE HCL 20 MG CAPSULE 40 MG PO (09:42)
[2025-04-04] MEDS: FAMOTIDINE 20 MG TABLET PO ×2 (09:43→21:09)
[2025-04-04] MEDS: ATORVASTATIN CALCIUM 10 MG TABLET 20 MG PO (09:43)
[2025-04-04] MEDS: ACETAMINOPHEN 325 MG TABLET PO (09:43)
[2025-04-04] MEDS: MAGNESIUM OXIDE 400 MG TABLET PO (09:43)
[2025-04-04] MEDS: ASPIRIN 81 MG TAB.CHEW PO (09:44)
[2025-04-04] MEDS: SODIUM CHLORIDE 0.9 % (FLUSH) 10 ML SYRINGE 5 ML IVF ×2 (09:47→21:09)
[2025-04-04 13:28] LABS: Hemoglobin* 8.4 gm/dL (12.0-16.0)
--- NOTE | 2025-04-04 16:11 | PM.IMPN1 ---
Assessment and Plan Assessment and plan (1) Pneumonia: Problem comment: -CT on admission concerning for RUL superimposed pneumonia. -labs reassuring, VS reassuring with the exception of hypoxia and intermittent tachycardia -Ceftriaxone and Azithromycin (04/03) Status: Acute (2) COPD (chronic obstructive pulmonary disease): Problem comment: -acute exacerbation with hypoxia, wheezing -extended exposure to dog allergen in her son's home -no improvement with home albuterol inhaler -VBG pH 7.347, pCO2 33, PO2 46 -antibiotic management as above -methylprednisolone 125 mg IV followed by 4 day course 40 mg prednisone -schedule DuTeresa, p.r.n. albuterol nebs, incentive spirometry -received 4 mg IV magnesium in ED -oxygen supplementation to maintain saturations 88-90%, wean as able -quit smoking in 2014 with dx of lung cancer Status: Acute (3) Acute hypoxic respiratory failure: Problem comment: -in setting of acute COPD exacerbation, pulmonary fibrosis, possible superimposed pneumonia -BNP 11k, TTE 04/04: Final Impressions: Limited Echocardiogram performed 1. Normal left ventricular size, mildly increased wall thickness, normal global systolic function, calculated EF of 56 %. 2. Right ventricular cavity size is not well visualized, global systolic RV function is not well visualized. 3. The aortic valve is trileaflet and calcified, mild stenosis and moderate regurgitation.The aortic valve peak velocity is 2.4 m/s, the peak gradient is 24 mmHg, and the mean gradient is 14 mmHg. The aortic valve area is 1.77 cm?? with a dimensionless index of 0.41. The stroke volume index is 35.9 ml/m??. 4. The mitral valve is normal, mild mitral regurgitation. 5. Moderate-severe tricuspid regurgitation. 6. The inferior vena cava is dilated, respiratory size variation less than 50%. 7. Dilated ascending aorta, diameter of 4.7 cm (upper limit of normal for age, sex, and BSA is 4.4 cm*), Height Index 2.64. 8. Normal for age/sex/bsa, diameter of 4.0 cm (upper limit of normal for age, sex, and BSA is 4.2 cm*), Height Index 2.25 cm/m. 9. Mildly increased estimated pulmonary pressures by tricuspid regurgitation velocity and right atrial pressure (36 mmHg plus RAP). Status: Acute (4) Pulmonary fibrosis: Problem comment: -CT shows Worsening subpleural predominant reticulation with interval development of mosaic attenuation/interstitial thickening, greater in the right lung likely a combination of worsening interstitial lung disease/pulmonary fibrosis -outpatient follow-up with pulmonology Status: Acute (5) HARMONY (acute kidney injury): Problem comment: -creatinine 2.2, previous 1.5, historically 1.5-2.25. Improved to 1.9 following IVF -avoid nephrotoxic medications, hold lisinopril, renally dose antibiotics -04/04: creatinine 2.0 Status: Acute (6) Hypomagnesemia: Problem comment: -acute on chronic recurrent -0.9 in ED, improved to 2.4 following 4G IV Mag sulfate -continue oral home supplement Status: Acute (7) Alcohol use disorder: Problem comment: -reports abstinence since most recent hospitalization, no evidence of withdrawal Status: Acute (8) Anemia: Problem comment: - hemoglobin 8.6, this is up from 8.2 and 8.0 in March - likely combination of poor nutrition, alcoholism, chronic kidney disease; no evidence of acute blood loss - normal B12, peripheral smear pending, FOBT negative in July 2024 - 04/04: 7.7 -> 8.4, continue to follow Status: Chronic (9) Hypertension: Problem comment: -holding lisinopril in setting of HARMONY, monitoring restart as appropriate Status: Acute Plan - per above - home when stable on RA Subjective Date Seen: 04/04/25 Interval history: Bernie was admitted to the hospital yesterday for acute hypoxic respiratory failure in the setting of COPD exacerbation and right upper lobe pneumonia. She is on supplemental oxygen, azithromycin and ceftriaxone, nebs, steroids. This morning, she is still requiring supplemental oxygen and is dyspneic with exertion. No chest pain. No significant weakness. Hemoglobin noted to be 7.7, improved to 8.4 on recheck. Exam Narrative: Exam Narrative: GEN: Alert and oriented, sitting comfortably in bed HEENT: EOMIs bilaterally, no scleral icterus CV: RRR, systolic murmur without concerning features R: Coarse bibasilar rhonchi, mild expiratory wheezing Ext: wwp, no concerning edema Skin: No concerning skin lesions or rashes on exposed skin Neuro: Nonfocal Psych: Appropriate Const: Vital Signs, click to edit/add: Vital Signs - 24 hr 04/03/25 16:15 12/03/25 16:30 04/03/25 16:45 Temperature Pulse Rate 89 91 100 Pulse Rate [Left P ulse Oximeter] Pulse Rate [Pulse Oximeter] Respiratory Rate Blood Pressure Blood Pressure [Le ft Arm] Blood Pressure [Le ft Upper Arm] Pulse Oximetry 91 91 86 L Oxygen Delivery Me thod Oxygen Flow Rate 04/03/25 17:00 04/03/25 18:10 04/03/25 18:13 Temperature Pulse Rate 102 H 100 Pulse Rate [Left P ulse Oximeter] 100 Pulse Rate [Pulse Oximeter] Respiratory Rate 16 28 H 20 Blood Pressure 178/84 H Blood Pressure [Le ft Arm] Blood Pressure [Le ft Upper Arm] 178/84 H Pulse Oximetry 92 90 92 Oxygen Delivery Me thod Room Air Oxygen Flow Rate 04/03/25 18:20 04/03/25 18:21 04/03/25 18:21 Temperature Pulse Rate 110 H Pulse Rate [Left P ulse Oximeter] Pulse Rate [Pulse Oximeter] Respiratory Rate 55 H Blood Pressure 194/100 H Blood Pressure [Le ft Arm] Blood Pressure [Le ft Upper Arm] Pulse Oximetry 82 L 88 92 Oxygen Delivery Me thod Room Air Nasal Cannula Oxygen Flow Rate 2.5 04/03/25 19:55 04/03/25 19:56 04/03/25 20:17 Temperature 99.2 F Pulse Rate Pulse Rate [Left P ulse Oximeter] Pulse Rate [Pulse Oximeter] 98 Respiratory Rate 20 20 Blood Pressure Blood Pressure [Le ft Arm] 201/94 H Blood Pressure [Le ft Upper Arm] Pulse Oximetry 91 91 Oxygen Delivery Me thod Nasal Cannula Nasal Cannula Nasal Cannula Oxygen Flow Rate 1.5 1.5 1.5 04/03/25 23:24 04/04/25 01:52 04/04/25 02:10 Temperature 98.8 F 98.4 F Pulse Rate 87 Pulse Rate [Left P ulse Oximeter] Pulse Rate [Pulse Oximeter] 99 89 Respiratory Rate 20 18 Blood Pressure Blood Pressure [Le ft Arm] 150/73 H 157/81 H Blood Pressure [Le ft Upper Arm] Pulse Oximetry 89 88 Oxygen Delivery Me thod Room Air Nasal Cannula Oxygen Flow Rate 0.5 04/04/25 04:30 04/04/25 07:05 04/04/25 07:30 Temperature Pulse Rate 69 Pulse Rate [Left P ulse Oximeter] Pulse Rate [Pulse Oximeter] 83 Respiratory Rate Blood Pressure Blood Pressure [Le ft Arm] 139/76 Blood Pressure [Le ft Upper Arm] Pulse Oximetry 94 85 L Oxygen Delivery Me thod Room Air Room Air Oxygen Flow Rate 04/04/25 07:35 04/04/25 08:35 04/04/25 08:40 Temperature Pulse Rate Pulse Rate [Left P ulse Oximeter] Pulse Rate [Pulse Oximeter] Respiratory Rate Blood Pressure Blood Pressure [Le ft Arm] Blood Pressure [Le ft Upper Arm] Pulse Oximetry 89 96 92 Oxygen Delivery Me thod Nasal Cannula Nasal Cannula Room Air Oxygen Flow Rate 0.5 0.5 04/04/25 10:00 04/04/25 10:00 04/04/25 12:15 Temperature 98.7 F 98.4 F Pulse Rate Pulse Rate [Left P ulse Oximeter] Pulse Rate [Pulse Oximeter] 77 77 96 Respiratory Rate 22 22 20 Blood Pressure Blood Pressure [Le ft Arm] 172/93 H 159/93 H Blood Pressure [Le ft Upper Arm] Pulse Oximetry 91 92 Oxygen Delivery Me thod Room Air Room Air Oxygen Flow Rate Labs Labs: Laboratory Results - last 24 hr 04/03/25 04/03/25 04/03/25 20:52 21:28 22:28 WBC RBC Hgb Hct MCV MCH MCHC Plt Count VBG pH 7.347 VBG pCO2 33 L VBG pO2 46.0 VBG HCO3 18 L Sodium 137 Potassium 4.2 Chloride 104 Carbon Dioxide 14 L Anion Gap 19 H BUN 22 Creatinine 1.9 H Estimated Creat Clear 22.35 Estimated GFR 28 Glucose 108 Calcium 8.5 Magnesium 2.4 C-Reactive Protein 0.8 NT-Pro-B Natriuret Pep 79280 H Procalcitonin 0.10 Lab Acknowledgement Test Added 04/03/25 04/04/25 04/04/25 22:38 06:46 13:20 WBC 7.68 RBC 2.54 L Hgb 7.7 L* 8.4 L Hct 23.9 L MCV 94 MCH 30 MCHC 32 Plt Count 320 VBG pH 7.345 VBG pCO2 36 L VBG pO2 36.7 VBG HCO3 20 L Sodium 133 L Potassium 3.7 Chloride 100 Carbon Dioxide 18 L Anion Gap 15 BUN 24 Creatinine 2.0 H Estimated Creat Clear 20.80 Estimated GFR 27 Glucose 212 H Calcium 8.5 Magnesium 2.1 C-Reactive Protein 2.8 H NT-Pro-B Natriuret Pep Procalcitonin Lab Acknowledgement Test Added
--- NOTE | 2025-04-04 19:42 | PC.NURSE ---
Pt able to tolerate RA entire day. Denies pain. Complains of breathing pain, Duo-neb per MAR given with relief per pt statement.
[2025-04-04] MEDS: MELATONIN 3 MG TABLET PO (21:08)
[2025-04-04] MEDS: AZITHROMYCIN 250 MG TABLET 500 MG PO (21:09)
[2025-04-05] VITALS (16 sets, daily range): BP systolic 124–166; BP diastolic 62–95; PULSE 92–101; RESP 16–22; TEMP 36.5–36.9; O2SAT 85–98
[2025-04-05] MEDS: ACETAMINOPHEN 325 MG TABLET PO
[2025-04-05] MEDS: MELATONIN 3 MG TABLET PO (00:02)
[2025-04-05] MEDS: IPRAT-ALBUT 0.5-2.5 MG/3 ML NEB 1 NEB IH ×2 (03:34→09:25)
--- NOTE | 2025-04-05 05:55 | PC.NURSE ---
Pt?alert and oriented. Pt up with SBA. Pt had no complaints of pain.?Pt on RA until 4am then Pt?s oxygen was 84-85%; put on 1 Liter oxygen and?maintained?saturations.?Pt?s oxygen?saturations?higher and by 0530 Pt on RA.?
[2025-04-05 07:03] LABS: HCO3 VBG 19 mmol/L (21-28); PCO2 VBG 36 mmHG (40-50); PO2 VBG 44.1 mmHG (25-47); pH VBG 7.346 (7.32-7.43)
[2025-04-05 07:12] LABS: Hematocrit* 22.0 % (33.0-51.0); Immature Granulocytes Abs Auto 0.04 K/uL (0.00-0.30); Immature Granulocytes Pct Auto 0.4 %; Mean Corpuscular HGB Conc 32 gm/dL (32-36); Mean Corpuscular Hemoglobin 31 pg (26-34); Mean Corpuscular Volume 94 fL (80-100); RDW Coefficient of Variation % 12.7 % (11.5-15.5); Red Blood Count* 2.33 m/uL (4.00-5.20); White Blood Count* 10.17 K/uL (4.50-11.00)
[2025-04-05 07:30] LABS: Chloride* 102 mmol/L (96-114); Potassium* 3.4 mmol/L (3.6-5.1); Sodium* 134 mmol/L (135-149)
[2025-04-05 07:33] LABS: Blood Urea Nitrogen* 34 mg/dL (7-30); Creatinine* 1.8 mg/dL (0.5-1.5); Est. Creatinine Clearance* 23.71; Estimated Glomerular Filt Rate 30 ml/min
[2025-04-05 07:34] LABS: Anion Gap 14 mEq/L (7-15); Calcium* 8.5 mg/dL (8.4-10.6); Carbon Dioxide* 18 mmol/L (20-32); Glucose* 141 mg/dL (60-115)
[2025-04-05 07:39] LABS: Hemoglobin* 7.1 gm/dL (12.0-16.0); Lymphocytes Absolute Auto 0.80 K/uL (0.90-2.90); Slide Review Reflex No
[2025-04-05] MEDS: cefTRIAXone 1 GM in 0.9 % SODIUM CHLORIDE Mini-bag 100 ML IVPB (09:21)
[2025-04-05] MEDS: AMLODIPINE 5 MG TABLET PO (09:23)
[2025-04-05] MEDS: ASPIRIN 81 MG TAB.CHEW PO (09:23)
[2025-04-05] MEDS: FAMOTIDINE 20 MG TABLET PO (09:23)
[2025-04-05] MEDS: FLUOXETINE HCL 20 MG CAPSULE 40 MG PO (09:23)
[2025-04-05] MEDS: ATORVASTATIN CALCIUM 10 MG TABLET 20 MG PO (09:23)
[2025-04-05] MEDS: MAGNESIUM OXIDE 400 MG TABLET PO (09:24)
--- NOTE | 2025-04-05 14:16 | P.DS_ITS ---
DS: Providers Provider Date Seen: 04/05/25 Date of admission: 04/03/25 19:28 Primary care physician: Edwige Conte DO Admitting Clinician: Antonieta Cárdenas MD Consults: SW, RT Attending Physician on discharge: Joana Johnston MD Date of Discharge: 04/05/25 DS: Diagnosis Discharge Diagnosis (1) Pneumonia: Status: Acute Problem details: -CT on admission concerning for RUL superimposed pneumonia -labs reassuring, VS reassuring with the exception of intermittent hypoxia and intermittent tachycardia (resolved) -Ceftriaxone and Azithromycin (04/03) (2) COPD (chronic obstructive pulmonary disease): Status: Acute Problem details: -acute exacerbation with hypoxia, wheezing -extended exposure to dog allergen in her son's home -VBG pH 7.347, pCO2 33, PO2 46 -treated with IV Magnesium, steroids, antibiotics, nebs, IS, RT evaluation -quit smoking in 2014 with dx of lung cancer -required low dose supplemental oxygen on admission, weaned off by 04/05 (3) Acute hypoxic respiratory failure: Status: Acute Problem details: -in setting of acute COPD exacerbation, pulmonary fibrosis, possible parker perimposed pneumonia -BNP 11k, TTE 04/04: Final Impressions: Limited Echocardiogram performed 1. Normal left ventricular size, mildly increased wall thickness, normal global systolic function, calculated EF of 56 %. 2. Right ventricular cavity size is not well visualized, global systolic RV function is not well visualized. 3. The aortic valve is trileaflet and calcified, mild stenosis and moderate regurgitation.The aortic valve peak velocity is 2.4 m/s, the peak gradient is 24 mmHg, and the mean gradient is 14 mmHg. The aortic valve area is 1.77 cm?? with a dimensionless index of 0.41. The stroke volume index is 35.9 ml/m??. 4. The mitral valve is normal, mild mitral regurgitation. 5. Moderate-severe tricuspid regurgitation. 6. The inferior vena cava is dilated, respiratory size variation less than 50%. 7. Dilated ascending aorta, diameter of 4.7 cm (upper limit of normal for age, sex, and BSA is 4.4 cm*), Height Index 2.64. 8. Normal for age/sex/bsa, diameter of 4.0 cm (upper limit of normal for age, sex, and BSA is 4.2 cm*), Height Index 2.25 cm/m. 9. Mildly increased estimated pulmonary pressures by tricuspid regurgitation velocity and right atrial pressure (36 mmHg plus RAP). (4) Pulmonary fibrosis: Status: Acute Problem details: -CT shows Worsening subpleural predominant reticulation with interval development of mosaic attenuation/interstitial thickening, greater in the right lung likely a combination of worsening interstitial lung disease/pulmonary fibrosis -outpatient follow-up with pulmonology (5) HARMONY (acute kidney injury): Status: Acute Problem details: -creatinine 2.2, previous 1.5, historically 1.5-2.25. Improved to 1.9 following IVF -avoid nephrotoxic medications, hold lisinopril, renally dose antibiotics -04/04: creatinine 2.0 -04/05: creatinine 1.8, outpatient f/u with PCP. HOLDING Lisinopril upon discharge (6) Hypomagnesemia: Status: Acute Problem details: -acute on chronic recurrent -0.9 in ED, improved to 2.4 following 4G IV Mag sulfate -continued oral home supplement (7) Alcohol use disorder: Status: Acute Problem details: -reports abstinence since most recent hospitalization, no evidence of withdrawal (8) Anemia: Status: Chronic Problem details: - hemoglobin 8.6, this is up from 8.2 and 8.0 in March - likely combination of poor nutrition, alcoholism, chronic kidney disease; no evidence of acute blood loss - normal B12, peripheral smear pending, FOBT negative in July 2024 - 04/04: 7.7 -> 8.4 - 04/05: 7.1, received 1U of PRBCs prior to discharge with close PCP f/u. HOLDING ASA on discharge (9) Hypertension: Status: Acute Problem details: -holding lisinopril in setting of HARMONY, monitoring restart as appropriate DS: Summary Hospital Course Hospital Course: Bernie was admitted to the hospital on 04/03/2025 for acute hypoxic respiratory failure in the setting of known COPD. Imaging in ER concerning for RUL pneumonia. Treated with supplemental oxygen, antibiotics, nebs, 3 days of Prednisone with improvement, off of supplemental oxygen 04/05. Other notable findings during stay: - anemia, unknown cause. No evidence of acute blood loss, no melena, did not have a sample for FOBT. Received 1U of PRBCs for Hgb on 7.1 04/05/25, f/u with PCP next week as scheduled. HOLDING ASA upon d/c and will continue daily PPI. Discussed return precuations. - HARMONY, Creatinine of 2.2, improved to 1.8 (baseline 1.4-1.5). HOLDING Lisinopril upon discharge Patient stable on room air and appropriate for discharge home with close PCP follow-up on 04/05/2025. Status at Discharge Functional status at discharge: independent ambulation Overall status at discharge: patient is progressing back to baseline Time Spent with Patient Time attestation: Total time spent providing and/or coordinating discharge services: Time spent: Greater than 30 minutes Exam Narrative: Exam Narrative: GEN: Alert and oriented, delightful and sitting comfortably in bedside chair HEENT: EOMIs bilaterally, no scleral icterus CV: RRR, No concerning murmurs R: No tachypnea, no concerning wheezing Ext: wwp, no concerning edema Skin: Scattered bruising, no other concerning skin lesions noted Neuro: Nonfocal Psych: Appropriate Const: Vital Signs, click to edit/add: Vital Signs - 24 hr 04/04/25 15:00 04/04/25 15:00 04/04/25 15:00 Temperature Pulse Rate 97 Pulse Rate [Pulse Oximeter] 90 Respiratory Rate 20 20 Blood Pressure Blood Pressure [Le ft Arm] Pulse Oximetry 95 Oxygen Delivery Me thod Room Air Oxygen Flow Rate 04/04/25 17:00 04/04/25 19:37 04/04/25 23:32 Temperature 98.6 F Pulse Rate 99 Pulse Rate [Pulse Oximeter] 90 98 Respiratory Rate 20 16 Blood Pressure Blood Pressure [Le ft Arm] 158/79 H 159/76 H Pulse Oximetry 95 95 Oxygen Delivery Me thod Room Air Room Air Oxygen Flow Rate 04/04/25 23:40 04/04/25 23:40 04/04/25 23:40 Temperature 98.3 F Pulse Rate Pulse Rate [Pulse Oximeter] 99 Respiratory Rate 20 20 20 Blood Pressure Blood Pressure [Le ft Arm] 157/86 H Pulse Oximetry 93 93 Oxygen Delivery Me thod Room Air Room Air Oxygen Flow Rate 0 04/05/25 03:30 04/05/25 04:13 04/05/25 04:15 Temperature 97.7 F Pulse Rate Pulse Rate [Pulse Oximeter] 92 Respiratory Rate 20 Blood Pressure Blood Pressure [Le ft Arm] 124/62 Pulse Oximetry 96 85 L 89 Oxygen Delivery Me thod Room Air Room Air Nasal Cannula Oxygen Flow Rate 1 04/05/25 05:34 04/05/25 05:35 04/05/25 09:32 Temperature 98.2 F Pulse Rate Pulse Rate [Pulse Oximeter] 92 Respiratory Rate 16 Blood Pressure Blood Pressure [Le ft Arm] 151/81 H Pulse Oximetry 96 94 97 Oxygen Delivery Me thod Nasal Cannula Room Air Room Air Oxygen Flow Rate 1 04/05/25 09:32 04/05/25 09:32 04/05/25 09:57 Temperature Pulse Rate 97 Pulse Rate [Pulse Oximeter] 92 Respiratory Rate 16 16 Blood Pressure Blood Pressure [Le ft Arm] Pulse Oximetry 97 Oxygen Delivery Me thod Room Air Oxygen Flow Rate 04/05/25 11:26 04/05/25 11:31 04/05/25 11:44 Temperature 98.3 F 98.3 F 97.9 F Pulse Rate 92 94 Pulse Rate [Pulse Oximeter] 92 Respiratory Rate 18 18 18 Blood Pressure 149/73 H 146/88 H Blood Pressure [Le ft Arm] 149/73 H Pulse Oximetry 96 98 96 Oxygen Delivery Me thod Room Air Room Air Room Air Oxygen Flow Rate 04/05/25 12:14 04/05/25 12:44 04/05/25 13:14 Temperature 98.3 F 98.5 F 98.1 F Pulse Rate 92 97 98 Pulse Rate [Pulse Oximeter] Respiratory Rate 22 18 20 Blood Pressure 145/75 H 162/83 H 156/86 H Blood Pressure [Le ft Arm] Pulse Oximetry 92 95 94 Oxygen Delivery Me thod Room Air Room Air Room Air Oxygen Flow Rate 04/05/25 13:44 Temperature 98.4 F Pulse Rate 100 Pulse Rate [Pulse Oximeter] Respiratory Rate 20 Blood Pressure 157/84 H Blood Pressure [Le ft Arm] Pulse Oximetry 93 Oxygen Delivery Me thod Room Air Oxygen Flow Rate DS: Data Data Completed and Pending Completed studies during hospitalization: Procedures Detoxification Services for Substance Abuse Treatment (08/08/24) Immobilization of Right Upper Extremity using Splint (08/08/24) Transfusion of Nonautologous Red Blood Cells into Peripheral Vein, Percutaneous Approach (08/08/24) Labs on day of discharge: Labs from last 24 hours 04/05/25 06:38 WBC 10.17 RBC 2.33 L Hgb 7.1 L* Hct 22.0 L MCV 94 MCH 31 MCHC 32 RDW Coeff of Latoya 12.7 Plt Count 312 Neut % (Auto) 85.8 H Lymph % (Auto) 7.8 L Durham % (Auto) 5.9 Eos % (Auto) 0.0 Baso % (Auto) 0.1 Neut # (Auto) 8.70 H Lymph # (Auto) 0.80 L Durham # (Auto) 0.60 Eos # (Auto) 0.00 Baso # (Auto) 0.01 Abs Immat Gran (auto) 0.04 Imm/Tot Granulo (auto) 0.4 VBG pH 7.346 VBG pCO2 36 L VBG pO2 44.1 VBG HCO3 19 L Sodium 134 L Potassium 3.4 L Chloride 102 Carbon Dioxide 18 L Anion Gap 14 BUN 34 H Creatinine 1.8 H Estimated Creat Clear 23.71 Estimated GFR 30 Glucose 141 H Calcium 8.5 C-Reactive Protein 3.0 H Blood Type A Positive Antibody Screen NEGATIVE Crossmatch (AHG) See Detail Discharge Plan Discharge Disposition: Home, Self-Care Date of Admission: 04/03/25 19:28 Attending Provider on Discharge: Joana Johnston Primary Care Provider: Edwige Conte Condition: Improved Anticipated Discharge Date/Time: 04/05/25 13:51 Discharge Medications: New azithromycin 250 mg Tablet 250 mg PO Q24H Qty: 3 0RF Taper: Z-PINA 250 mg Q24H for 3 Days and 0 Hour Rx Instructions: 3 more days to complete course Qvar RediHaler 80 mcg/actuation HFA aerosol breath activated 1 inh inhalation BID Qty: 10.6 2RF Rx Instructions: administer with spacer Continued fluoxetine 20 mg capsule 40 mg PO DAILY famotidine 20 mg tablet 20 mg PO BID omeprazole 20 mg Capsule,Delayed Release(Dr/Ec) 20 mg PO DAILY PRN amlodipine 5 mg tablet 5 mg PO DAILY atorvastatin 20 mg tablet 20 mg PO DAILY Rx Instructions: Take 1 Tablet (20 mg) by mouth once daily. albuterol sulfate 90 mcg/actuation HFA aerosol inhaler 2 puff INHALATION Q4H PRN magnesium oxide 400 mg (241.3 mg magnesium) tablet 400 mg PO DAILY Held lisinopril 5 mg tablet 5 mg PO DAILY Hold Instructions: HOLD UNTIL F/U with DR CONTE to see how your kidneys are doing Rx Instructions: Take 1 Tablet (5 mg) by mouth once daily. aspirin 81 mg tablet,chewable 81 mg PO DAILY Qty: 90 0RF Hold Instructions: HOLD UNTIL YOUR APPOINTMENT WITH DR CONTE Discharge Orders: Discharge Order (Routine); Ordered 04/05/25 Ordered By: Joana Johnston Patient Education: Beclomethasone (By breathing) (Beclovent, QVAR, QVAR Redihal er), Azithromycin (By mouth) Additional Instructions: 3 more days of antibiotic sent to [facility]. A new steroid inhaler also sent to [facility] - you should take this TWICE PER DAY SCHEDULED to help with your breathing. Take your Omeprazole EVERY DAY. HOLD your Aspirin and Lisinopril until you see Dr. Conte next week. Have your Hemoglobin and kidneys checked at that time. Activity Level: Activity as Tolerated and No strenuous activity Discharge Diet: Regular Follow Up Appointments: Edwige Conte DO [Primary Care Provider, Family Practice] Referral Note: patient already has an appt made with PCP on 04/11 at 10:30 Forms: GuideITth Info Instructions
--- NOTE | 2025-04-05 14:25 | PC.SOCIAL ---
Social work check-in: psychiatric social worker supervisor met with the pt and her today for a general social work check-in. Pt states that she feels fine going home with her , but does not think she should go home today because she is still getting blood and IV Antibiotics and it's the middle of the afternoon. This worker explained that pt's discharge well into the evening from med/surg and that it was ultimately up to the provider on duty when she would discharge. psychiatric social worker supervisor relayed this message to the provider on duty and she stated that the pt will still discharge today yet. Social work to follow-up as needed.
--- NOTE | 2025-04-05 16:05 | PC.NURSE ---
Discharge: Patient pleasant and cooperative. Patient vitally stable, lungs course, BS WNL, IV removed, catheter intact. Patient on RA and denies any pain. Patient tolerated blood infusion. Patient tolerating regular diet, urinating well, and had 2 BMs. Patient is SBA with walker. Patient signed belongings sheet and discharge from, and had no further questions regarding discharge. Patient left the floor by wheelchair to home at 1551.
[2025-04-05 16:24] LABS: Fecal Occult Blood* Positive (Negative)
--- NOTE | 2025-04-09 10:39 | PM.EN ---
Chart Event Note Chart Event Note: Called and checked in on patient 04/09, received + FOBT this morning. Bernie denies any melena, lightheadedness, or dizziness. Notes that her hemorrhoids did flare the week prior to hospital stay. Her aspirin has been held and she is on a daily PPI. She is still occasionally short of breath with exertion, able to speak in full sentences with me on the phone. We discussed return precautions, symptoms that warrant clinic visit vs urgent care vs ER, she verbalized understanding. Has an appointment with her PCP on the , PCP updated.
== END 2025-04-05 15:51 | disposition home or self-care (01) | DRG 190 ==
LOC: ED 18:33 → MEDSURG 04-05 13:51
PROVIDERS: Family Medicine; Admitting Provider Physician Assistant; Emergency Provider Student in an Organized Health Care Education/Training Program; PCP Family Medicine; Visit Provider Physician Assistant
DX: J44.0 Chronic obstructive pulmonary disease with (acute) lower respiratory infection (principal); J18.9 Pneumonia, unspecified organism; J96.01 Acute respiratory failure with hypoxia; N17.9 Acute kidney failure, unspecified; J44.1 Chronic obstructive pulmonary disease with (acute) exacerbation; J84.10 Pulmonary fibrosis, unspecified; E83.42 Hypomagnesemia; I12.9 Hypertensive chronic kidney disease with stage 1 through stage 4 chronic kidney disease, or unspecified chronic kidney disease; N18.30 Chronic kidney disease, stage 3 unspecified; E11.22 Type 2 diabetes mellitus with diabetic chronic kidney disease; K21.9 Gastro-esophageal reflux disease without esophagitis; F10.20 Alcohol dependence, uncomplicated; D64.9 Anemia, unspecified; E78.2 Mixed hyperlipidemia; Z87.891 Personal history of nicotine dependence; Z79.82 Long term (current) use of aspirin; Z79.899 Other long term (current) drug therapy; Z88.0 Allergy status to penicillin; Z66 Do not resuscitate
CPT/HCPCS: 36415; 36430; 71046; 71275; 80048; 82270; 82803; 83735; 83880; 84100; 84145; 84484; 85018; 85025; 85027; 85379; 86140; 86850; 86900; 86901; 86922; 87631; 93005; 93306; 94640; 94761; 99285; A9270; J0696; J1938; J2919; J3475; J7030; J7120; J7512; P9016; Q9967

== ENCOUNTER 2025-04-22 19:28 | Outpatient (CLI) | payer MEDICARE, SELFPAY | END 2025-04-22 19:29 | disposition home or self-care (01) | LOC: AMB 04-24 18:19 | PROVIDERS: PCP Family Medicine; Visit Provider Family Medicine | DX: F10.129 Alcohol abuse with intoxication, unspecified (principal) | CPT/HCPCS: A0425; A0429 ==

== ENCOUNTER 2025-04-22 20:01 | Inpatient (IN) | payer MEDICARE, SELFPAY ==
[2025-04-22] VITALS (12 sets, daily range): BP systolic 121–154; BP diastolic 61–82; PULSE 78–92; RESP 16–20; TEMP 36.6; O2SAT 88–100; BMI 18.1
--- OUTSIDE RECORDS SUMMARY | 2025-04-22 20:03 | XMS_ITS | Clinical Summary ---
Author Organization [facility] [place] [place] Address [address] [place] [address] Phone Care Team Providers Care Business Assistant Name Role Phone Venkat Edwige Saul DO Primary Care Provider [phone] Allergies Active AllergyReactionsCriticalityNoted DateCommentsBananaAnaphylaxisHigh 11/13/2019CephalexinNausea And Nesubxse09/04/0298Olxeqwdwijku92/25/2009Latex Hives01/14/20090304FlrmsojyqSlvncc43/14/2020Peanut EjcOohbtehdikgUxlh94/14/2020 OkpiryarxovAobjdOpnk88/26/2007Strawberry EeclpysCdaxNjb82/09/2025 Medications MedicationSigDispense QuantityRefillsLast FilledStart DateEnd DateStatus albuterol HFA (PROVENTIL HFA;VENTOLIN HFA) 108 (90 Base) MCG/ACT inhaler Inhale 2 puffs every 30 minutes as drxesi9507/15/2021ctive amLODIPine (NORVASC) 5 MG tablet Take 5 mg by mouth in the morning.5Active atorvastatin (LIPITOR) 20 MG tablet Take 20 mg by mouth in the morning.1Active aspirin 81 MG chewable tablet Chew 81 mg 1 (one) time each day01/25/2007ctive cetirizine (ZyrTEC) 10 MG tablet Take 10 mg by mouth in the morning.5Active famotidine (PEPCID) 20 MG tablet Take 20 mg by mouth in the morning and 20 mg in the evening.07/15/2021ctive FLUoxetine (PROzac) 20 MG capsule Take 40 mg by mouth in the morning.5Active Fluticasone-Salmeterol 250-50 MCG/ACT aerosol powder Inhale 1 puff in the morning and 1 puff in the evening.5Active hydrocortisone 2.5 % ointment Apply topically 2 times daily as bldjqw091Active lisinopril 5 MG tablet Take 5 mg by mouth in the morning.5Active magnesium oxide (MAG-OX) 400 MG tablet Take 400 mg by mouth in the morning.5Active omeprazole (PriLOSEC) [address] capsule Take 1 capsule by mouth in the morning.5Active Active Problems ProblemNoted DateDiagnosed DateChronic kidney disease stage Overview (04/17/2025): 08/08/24: Cr 2.3 mg/dL 08/08/24: GFR 23 mL/min 08/08/24: BUN 18 mg/dL On meds: lisinopril Essential zjkxzcyvjlya95/06/2009 Overview (04/17/2025): - restarting home Amlodipine 08/11, HELD Lisinopril during stay given HARMONY - resume Lisinopril upon d/c Encounters DateTypeDepartmentCare UdixXylncxbllgr35/17/2025Documentation Only [facility] [place] [address] [facility] [address] [place] [id number] Sung Wang 04/15/2025Transcribe Orders [facility] [place] [address] [facility] [address] [place] [id number] Edwige Robledo DO Chronic kidney disease, stage 4 (severe) (HCC) (Primary Dx); Microalbuminuria; Essential (primary) hypertensionfrom Last 3 Months Social History Tobacco UseTypesPacks/DayYears UsedDateSmoking Tobacco: KdtpkjXxrvhtgtkj6Udpn: 12/14/2014Smokeless Tobacco: Never Tobacco Cessation:Counseling Given: Not Answered Alcohol UseStandard Drinks/WeekCommentsNot Currently1 (1 standard drink = 0.6 oz pure alcohol)Very rarely currently, history of alcohol abuse per [facility] CommentsUnknownSex and Gender InformationValueDate RecordedSex Assigned at Not on fileLegal QfeXmqiqs01/13/2024 2:53 PM ESTGender IdentityNot on fileSexual OrientationNot on file Plan of Treatment DateTypeDepartmentCare Team (Latest Contact Info)Fagyxckpugh17/05/2026 11:30 AM CSTOffice Visit [facility] [place] [address] [place] [address] Surendra Graff MD [address] [place] [address] Health MaintenanceDue DateLast DoneCommentsBreast Cancer Uoosnowhc1955 Colorectal Cancer Screening: Annual FOBT2005Colorectal Cancer Screening: Gcshxyxwcls71/30/2005Colorectal Cancer Screening: Njsnkhzyljrqg21/30/2005 Pneumococcal Vaccine: 50+ Years (2 of 2 - PCV)iabetes: Ophthalmology Exam06/14/2023iabetes: Pedal Pulse Alkddow6706/14/2023iabetes: Sensory Foot Exam06/14/2023iabetes: Visual Foot Exam06/14/2023iabetes: Hemoglobin A1C10/20/643400/Influenza Vaccine (#1)512/10/2023, 02/11/2021, 02/18/2020, Additional history existsHepatitis B VaccineAged Out 11/21/2013, 05/30/2013, 04/20/2013No longer eligible based on patient's age to complete this topic Procedures Procedure NamePriorityDate/TimeAssociated DiagnosisCommentsCBC (INCLUDES DIFF/PLT) (EXTERNAL LAB ENTRY)Onynjkn0004/11/2025 CREATININE, GSBKYZgsmlpn73/11/2025 from Last 3 Months Results * CBC (Includes Diff/Plt) (External Lab) (04/11/2025)ComponentValueRef RangeTest MethodAnalysis TimePerformed AtPathologist SignatureWBC9.8K/uLQUEST WDLRed Blood Cell Count3.97QUEST DTDRivegtxplu62.9g/dLQUEST PQXVotwmcrhao27.5%QUEST TMNHFX57.5QUEST TJYUTW29.0QUEST ZQWYQBX87.7QUEST BMWYTW98.6QUEST WDLPlatelet Ihdze670DBVVV RQKQOY30.5QUEST WDLSpecimen (Source)Anatomical Location / LateralityCollection Method / VolumeCollection TimeReceived TimeBlood 04/11/2025 Narrative Authorizing ProviderResult TypeResult StatusHistorical Provider MDLAB BLOOD ORDERABLESFinal ResultPerforming OrganizationAddressCity/State/ZIP CodePhone Number [facility] * (ABNORMAL) Creatinine, serum (04/11/2025)ComponentValueRef RangeTest Method Analysis TimePerformed AtPathologist SignatureCreatinine, Ser1.85(H)QUEST WDL eGFR29(L)QUEST WDLSpecimen (Source)Anatomical Location / LateralityCollection Method / VolumeCollection TimeReceived TimeBloodVenous blood / Unknown 04/11/2025 Narrative Authorizing ProviderResult TypeResult StatusHistorical Provider MDLAB BLOOD ORDERABLESFinal ResultPerforming OrganizationAddressCity/State/ZIP CodePhone Number [facility] from Last 3 Months Insurance * Guarantor: Bernie Samaniego TypeRelation to PatientDate of BirthPhone Billing AddressPersonal/MofrzcDciu1955 [address], [place] [address] Care Teams Team MemberRelationshipSpecialtyStart DateEnd Date Edwige Robledo DO [address] [place] [address] PCP - GeneralFamily Fddxzdsr36/15/25
--- OUTSIDE RECORDS SUMMARY | 2025-04-22 20:03 | XMS_ITS | Encounter Summary ---
Author Organization [facility] [place] Address [address] [place] [address] Phone Care Team Providers Care Practice Billing Associate Name Role Phone VenkatEdwige martinez Primary Care Provider Encounter Details DateTypeDepartmentCare Team (Latest Contact Info)Zhpzrrnhqaj09/17/2025 Documentation Only [facility] [place] [address] [place] [address] Sung Wang [address] [place] [address] Social History Tobacco UseTypesPacks/DayYears UsedDateSmoking Tobacco: WudubkLvufcsopom5Ocnw: 12/14/2014Smokeless Tobacco: NeverAlcohol UseStandard Drinks/WeekCommentsNot Currently1 (1 standard drink = 0.6 oz pure alcohol)Very rarely currently, history of alcohol abuse per [facility]CommentsUnknownSex and Gender InformationValueDate RecordedSex Assigned at BirthNot on fileLegal SexFemale 06/14/2023 2:53 PM ESTGender IdentityNot on fileSexual OrientationNot on file documented as of this encounter Progress Notes * Sung Wang - 04/17/2025 9:38 AM CST Databasing new pt chart documented in this encounter Plan of Treatment DateTypeDepartmentCare Team (Latest Contact Info)Ylcuqttwubc69/05/2026 11:30 AM CSTOffice Visit [facility] [place] [place] [address] [place] [address] Surendra Graff MD [address] [place] [address] documented as of this encounter Visit Diagnoses Not on filedocumented in this encounter Care Teams Team MemberRelationshipSpecialtyStart DateEnd Date Edwige Robledo DO [address] [place] [address] PCP - GeneralFamily Zoscmdua27/15/25documented as of this encounter
--- OUTSIDE RECORDS SUMMARY | 2025-04-22 20:03 | XMS_ITS | Encounter Summary ---
Author Organization [facility] [place] Address [address] [place] [address] Phone Care Team Providers Care Hot Braider Name Role Phone Edwige Robledo DO Primary Care Provider [phone] Reason for Referral * Consultation (Urgent) - AuthorizedSpecialtyDiagnoses / ProceduresReferred By ContactReferred To ContactNephrology Diagnoses Chronic kidney disease, stage 4 (severe) (HCC) Microalbuminuria Essential (primary) hypertension Edwige Robledo DO [address] [place] [address] Phone: tel: fax: Surendra Graff MD [address] [place] [address] Phone: tel: fax: Referral IDStatusReasonStart DateExpiration DateVisits RequestedVisits [id number] Specialty Services Required RUNNER Encounter Details DateTypeDepartmentCare Team (Latest Contact Info)Pnrtsqzszro07/15/2025Transcribe Orders [facility] [place] [address] [address] Edwige Robledo DO [address] [place] [address] Chronic kidney disease, stage 4 (severe) (HCC) (Primary Dx); Microalbuminuria; Essential (primary) hypertension Social History Tobacco UseTypesPacks/DayYears UsedDateSmoking Tobacco: Never Assessed CommentsUnknownSex and Gender InformationValueDate RecordedSex Assigned at Not on fileLegal AefPahlxv03/13/2024 2:53 PM ESTGender IdentityNot on fileSexual OrientationNot on filedocumented as of this encounter Plan of Treatment DateTypeDepartmentCare Team (Latest Contact Info)Nuotnuhicrr41/05/2026 11:30 AM CSTOffice Visit [facility] [place] [address] [place] [address] Surendra Graff MD [address] [place] [address] NameTypePriorityAssociated DiagnosesOrder ScheduleAmbulatory referral to NephrologyOutpatient ReferralRoutine Chronic kidney disease, stage 4 (severe) (HCC) Microalbuminuria Essential (primary) hypertension Expected: 04/15/2025, Expires: 05/16/2026documented as of this encounter Visit Diagnoses Diagnosis Chronic kidney disease, stage 4 (severe) (HCC)- Primary Microalbuminuria Essential (primary) hypertension documented in this encounter Care Teams Team MemberRelationshipSpecialtyStart DateEnd Date Edwige Robledo DO [address] [place] [address] PCP - GeneralFamily Oewhitvf74/15/25documented as of this encounter
--- OUTSIDE RECORDS SUMMARY | 2025-04-22 20:03 | XMS_ITS | Clinical Summary ---
Author Organization [facility] Address [address] [place] [address] Care Team Providers Care Top Spotter Name Role Phone Nilam Hernandez RN, BSN Unavailable Unavailab Jany Burt DO Primary Care Provider [phone] Allergies Active AllergyReactionsCriticalityNoted DateCommentsBananaAnaphylaxisHigh 11/13/20191760Jnzxtpnvepih90/25/2009CephalexinNausea And Dbmidrlv53/04/2009Latex Hives01/14/2009OxycodoneNausea Only11/13/20196615IziohttmdzyNgeit10/26/2007Peanut NhqMuggiygzlneYvww22/14/9073InxyrfokqpOlfd02/09/2025Tetanus And Diphther. Tox (Pf)Qjfkfdftya22/15/2009 Medications MedicationSigDispense QuantityRefillsLast FilledStart DateEnd DateStatus ASPIRIN 81 MG TAB take 1 tablet (81mg) by oral route once ualyc248ctive Walker Indications:Acute respiratory failure with hypoxia (HC)Walker with front wheels for home use. 1 Device 02/04/2020Active cetirizine 10 mg tablet Indications:ItchingTake 1 Tablet (10 mg) by mouth once daily. 30 Tablet 5Active hydrocortisone 2.5 % ointment Indications:ItchingApply topically to affected area(s) 2 times daily if needed for Itching. 20 g 5Active atorvastatin 20 mg tablet Indications:Mixed hyperlipidemiaTake 1 Tablet (20 mg) by mouth once daily. 90 Tablet 5Active magnesium oxide (MAG-OX 400) 400 mg tablet Indications:Low magnesium levelsTake 1 Tablet (400 mg) by mouth once daily. 100 Tablet 5Active lisinopriL (PRINIVIL; ZESTRIL) 5 mg tablet Indications:Microalbuminuria,Hypertension, essentialTake 1 Tablet (5 mg) by mouth once daily. 90 Tablet 5Active famotidine (PEPCID) 20 mg tablet Indications:ItchingTake 1 Tablet (20 mg) by mouth two times daily. 180 Tablet 5Active omeprazole (PRILOSEC) 20 mg Delayed-Release capsule Take 1 Capsule by mouth once daily.5Active albuterol HFA (PRO-AIR; VENTOLIN; PROVENTIL) 90 mcg/actuation inhaler Indications:Mild intermittent asthma without complication (HC)Inhale 2 Puffs by mouth every 4 hours if needed for Shortness of Breath 1st choice or Wheezing 1st choice. 18 g 5Active amLODIPine (NORVASC) 5 mg tablet Indications:Hypertension, essentialTake 1 Tablet (5 mg) by mouth once daily. 180 Tablet 5Active FLUoxetine (PROZAC) 20 mg capsule Indications:AnxietyTake 2 Capsules (40 mg) by mouth once daily. 60 Capsule 5Active fluticasone propion-salmeteroL (Advair Diskus) 250-50 mcg/Dose diskus inhaler Indications:Chronic obstructive pulmonary disease, unspecified COPD type (HC) Inhale 1 Puff by mouth two times daily. 60 Each 5Active fluticasone propion-salmeteroL (Advair Diskus) 250-50 mcg/Dose diskus inhaler Indications:Chronic obstructive pulmonary disease, unspecified COPD type (HC) Inhale 1 Puff by mouth two times daily. 60 Each 5106/12/2024Discontinued(*Error/pastry cook error) Active Problems ProblemNoted DateDiagnosed DateFracture of right wrist03/14/2025Elbow fracture, right03/14/2025KI (acute kidney injury)03/14/2025Malignant neoplasm of lung 03/14/2025 Overview (03/14/2025): AI [...] Recent encounter dx: 08/08/24: Admitted Inpatient - [facility]CCU (from [facility]) 07/21/23: Appointment - [facility] 07/15/21: Appointment - [facility] 02/10/21: Support OP Encounter - [facility] 02/18/20: Appointment - [facility] Recent studies: 10/24/19: CT CHEST ABDOMEN PELVIS WO by Marisol Fox MD, Wilmer Romo MD ... [+] Indication: Anemia, history of lung cancer Recent notes: 08/08/24: H&P - [facility], EDYTA DALY, 08/08/2024 by JANY ROBLEDO ... [...] a history of alcoholism, breast cancer, metastatic lungcancer, chronic kidney disease, hypomagnesemia, and hyponatremia presents for follow-up of her medical issues and renewal of her medications. ... [+] CKD: Patient has chronic renal disease dating back to July 2015 when she was being treatedfor lung cancer. ... [-] Has not had any recent follow up of her lung cancer.Saw oncology 10/2019 and was advised to follow up in summer 2020 but did not schedule. ... [+] ? Lung cancer (HC) 12/03/20: Progress Notes by Marisol Fox MD ... [+] Bernie Campbell is a 65 y.o. female with a past medical history significant for stage IIIrenal disease, history of alcoholism, hypertension, hypomagnesemia,status post treatment for lung cancer and breast cancer , initially who scheduled appointment for follow-up of her chronic medical pr oblems as she has not been seen since January 2020 after her hospitalization for small bowel obstruction... 02/05/20: Discharge Summary by Rico Holt MD ... [+] Bernie Campbell is a 64 y.o. female with a past medical history pertinent for lung cancerin remission, DM, and breast cancer who was admitted to [facility] on 01/29/20 after presenting with small bowel obstruction. ... [+] She completed treatment for her metastatic lung cancer and was apparently deemed to be in remission. Malignant neoplasm of ygpmkn3603/14/2025 Overview (03/14/2025): AI Summary: The patient had a history of breast cancer, which was diagnosed around 01/20/2009 and treated with bilateral mastectomy and chemotherapy. The patient's breast cancer was an infiltrating ductal carcinoma, ER, DC and HER-2/bushra negative, with 0/12 nodes, and was reportedly in remission for 5 years as of 05/09/2014. A complication of breast cancer treatment was mentioned, which responded well to Neurontin. Recent encounter dx: 08/08/24: Admitted Inpatient - [facility]U (from [facility]) 02/10/21: Support OP Encounter - [facility] 04/20/13: Appointment - [facility] 04/12/13: Support OP Encounter - [facility] 01/09/13: Support OP Encounter - [facility] Recent studies: 03/11/09: Nuclear Medicine - BONE SCAN/WHOLE BODY, [facility], 03/11/09 by ANTONIO SPENCER ... [+] CLINICAL HISTORY: Breast cancer, evaluate for metastasis 01/28/09: XR CHEST PA & LATERAL * by Antonio Spencer, Sam Strong DO ... [+] CLINICAL HISTORY: Breast carcinoma. 01/24/09: MR Breast Bilateral w/wo Contrast * by Ze Pino MD, Janay Romero MD ... [+] CLINICAL HISTORY: 53-year-old woman with a newly diagnosed RIGHT breast cancer. ... [+] The pathologic evaluation showed infiltrating ductal carcinoma, Rick grade II of III. ... [+] INDICATION FOR BREAST MRI: Staging of newly diagnosed breast cancer. ... [-] Evaluate for multicentric or contralateral occult breast cancer. ... [-] IMPRESSIONS AND RECOMMENDATIONS: 1) 3.9 cm in greatest dimension mass - the recently diagnosed breast cancer. Recent notes: 08/08/24: H&P - [facility], EDYTA DALY, 08/08/2024 by JANY ROBLEDO ... [...] 01/30/09, ... [+] Infiltrating ductal carcinoma, ER, DC and HER-2/bushra neg, 0/12 nodes ... [+] Hx of Breast cancer in 2008, in remission 07/15/21: Progress Notes by Marisol Fox MD ... [+] Berniehakeem Mcbridetz is a 66 y.o. with a history of alcoholism, breast cancer, metastatic lungcancer, chronic kidney disease, hypomagnesemia, and hyponatremia presents [...] a past medical history significant for stage IIIrenal disease, history of alcoholism, hypertension, hypomagnesemia,status post treatment for lung cancer and breast cancer , initially who scheduled appointment for follow-up of her chronic medical pr oblems as she has not been seen since January 2020 after her hospitalization for small bowel obstruction... Stage 4 chronic kidney gqpbpgh1908/20/2024 Overview (03/14/2025): 08/08/24: Cr 2.3 mg/dL 08/08/24: GFR 23 mL/min 08/08/24: BUN 18 mg/dL On meds: lisinopril Chronic obstructive airway twnozoh1107/21/2023 Overview (03/14/2025): AI Summary: The patient had [...] albuterol Recent encounter dx: 10/23/24: Appointment - [facility] 07/21/23: Appointment - [facility] 12/07/20: Admitted Inpatient - [facility] (from [facility]) Recent notes: 10/23/24: Progress Notes - [...] with stable patchy areas of fibrosis/scarring. Chronic GERD02/11/2021ltered mental qyzppp7601/30/2020CKD (chronic kidney disease) stage 3, GFR 30-59 ml/min08/12/20178628Mhudsml29/24/2016Squamous cell carcinoma of lungs, bilateral - stage Overview (07/15/2021): Diagnosis 2016 Cisplatin/gemcitabine Lost to follow up - saw oncology 2017 [id number] Lost to follow up CT abdomen with bowel wall thickening Summer 2019 CT chest/abd pelvis subcentimeter mesenteric nodes nonspecific Brain MRI and PET scan unremarkable Low magnesium xfwrlw1804/20/2013 Overview (07/15/2021): Mildly low 01/2020 Significantly low during hospitalization with acute respiratory failure s/p surgery for bowel obstruction Started Magnesium supplement (stopped taking) Stopped PPI Uqmevnqvkg14/25/2012Mixed ejgecsdomwdtbj44/17/2010reast giwhzb0901/20/2009 Overview (03/05/2009): Right breast cancer, now S/P bilateral mastectomy 01/30/09, Infiltrating ductal carcinoma, ER, DC and HER-2/bushra neg, 0/12 nodes Unspecified essential cdacdklicdsx33/06/2009Type II or unspecified type diabetes mellitus without mention of complication, not stated as xhklnqiwelnb53/29/2006 Resolved Problems ProblemNoted DateDiagnosed DateResolved DateSmall bowel fztobgvtxty00/30/2020 07/21/2023 Overview (07/15/2021): Surgery 01/2020 at [facility] with acute respiratory failure post op with transfer to [facility] 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 Hasn't been using inhaler, but azithromycin used until yessterday. )04/11/20250523Orqmxh81/09/2025Telephone [facility] [address] [place] [address] Jany Robledo, Medication Pafnviykgn52/05/2025Telephone [facility] [address] [place] [address] Jany Robledo, Follow Up (Concerns)04/04/2025 3:00 PM CSTAncillary Procedure [facility] [address] [place] [address] 04/03/2025Telephone [facility] [address] [place] [address] Jany Robledo, call back (call back )04/02/2025Nurse Triage [facility] [address] [place] [address] Jany Robledo, Breathing Wzwdwpy8503/25/2025Nurse Triage [facility] [address] [place] [address] Jany Robledo, Leg Swelling (bilateral )03/19/2025Refill [facility] [address] [place] [address] Jany Robledo, Refill Request (Fluoxetine HCL 20mg)03/18/2025 10:00 AM CSTOffice Visit [facility] [address] [place] [address] Jany Robledo, Preoperative Exam (03/21 and 03/26 cateracts)03/18/20250495Qurilm21/12/2025Telephone [facility] [address] [facility] [place] [address] Jany Robledo, DO Ujezpwkltfd27/27/2025Refill [facility] [address] [place] [address] Jany Robledo, DO Refill Request (Famotidine)02/14/2025Refill [facility] [address] [place] [address] Jany Robledo, DO Refill Request (Fluoxetine HCL 20mg capsule )02/11/2025Refill [facility] [address] [place] [address] Jany Robledo, DO Refill Request (Lisinopril)01/24/2025Telephone [facility] [address] [place] [address] Jany Robledo, DO REFERRALfrom Last 3 Months Immunizations ImmunizationAdministration DatesNext DueCOVID-19 VACCINE SPIKEVAX (MODERNA 50MCG/0.5ML) 12YO+ PFS4COVID-19 vaccine (Pfizer-BioNTech 30mcg/0.3mL) PF, MDV04/09/2020Hepatitis B (Adult)11/21/2013,05/30/2013,04/20/2013Influenza, High-dose Wacbujjfwec27/06/2024,01/10/2017Influenza, KGK633/,02/18/2020, 02/27/2018,05/24/2016Pneumococcal Conj 20-valent (Prevnar 20)07/21/2023 Pneumococcal Poly,23-Valent (Pneumovax)02/11/2021Zoster (Shingrix-RZV, recombinant)02/27/2021Zoster (Zostavax-ZVL, live)04/20/2013 Family History RelationNameStatusCommentsBrother 1Deceasedfollowing kidney problems. on dialysisBrother 2Aliveheart surg age 39SisterDeceasedmi Social History Tobacco UseTypesPacks/DayYears UsedDateSmoking Tobacco: FormerCigarettes0.1Quit: 12/14/2014Smokeless Tobacco: Never Tobacco Cessation:Counseling Given: Not Answered Comments:quit Alcohol UseStandard Drinks/WeekCommentsNot Currently3 (1 standard drink = 0.6 oz pure alcohol)minimal currentlyPHQ-2AnswerDate RecordedPHQ-2 TOTAL SCORE2 07/21/2023Social ConnectionsAnswerDate RecordedDo you often feel lonely or isolated from those around you?lcohol UseAnswerDate RecordedHow often do you have a drink containing alcohol?How many drinks containing alcohol do you have on a typical day when you are drinking?0 04/11/2025How often do you have five or more drinks on one occasion? Financial Resource StrainAnswerDate RecordedDifficulty of Paying Living Expenses Difficulty of Paying Living ExpensesNot on file11/19/2024Food InsecurityAnswerDate RecordedDo you worry your food will run out before you are able to buy more?Transportation NeedsAnswerDate RecordedDoes lack of transportation keep you from medical appointments?Does lack of transportation keep you from work, meetings or getting things that you need?1 11/19/2024Housing StabilityAnswerDate RecordedWhat is your housing situation today?UtilitiesAnswerDate RecordedDo you have trouble paying for utilities (for example, heat, electricity, water, phone)? CommentsNoSex and Gender InformationValueDate RecordedSex Assigned at BirthNot on fileLegal VtoWojvyk07/14/2013 5:26 AM CSTGender IdentityNot on fileSexual OrientationNot on file Obstetrics History GravidaParaTermPretermABIABSABEctopicMultipleLivingLive Dmykwr68861NyahTcxbpwzNW Total LaborLabor/2nd/5wbBemyetLhdQzqfZyriFTXIqaW8S6YiuaLqaxZjnbYccsZvczFJQ Last Filed Vital Signs Vital SignReadingTime TakenCommentsBlood Hlscmrov866/8604/11/2025 10:53 AM CAR WORKER Tkvmy998204/11/2025 10:41 AM UHIUczcajoasdw68.1 ??C (98.8 ??F)12/03/2020 3:39 PM CDTRespiratory Sjbu5669 8:00 AM CDTOxygen Lhnmakukqg99%04/11/2025 10:41 AM CSTInhaled Oxygen Concentration--Xlamre64.2 kg (106 lb 3.2 oz)04/11/2025 10:41 AM BCIVzndcn085.1 cm (5' 0.67)02/11/2021 1:28 PM CDTBody Mass Index20.29 02/11/2021 1:28 PM CDT Plan of Treatment DateTypeDepartmentCare Team (Latest Contact Info)Fdkwttfvymg14/31/2025 3:30 PM CSTOffice Visit [facility] [address] [place] [address] Desire Rocha MD [address] [place] [address] Health MaintenanceDue DateLast DoneCommentsRSV vaccine for adults or (1 - Risk 50-74 years 1-dose series)2006Colonoscopy through age 75 ([facility])DEXA/DXA scan for age 65+ 2021Medicare Wellness for age 65+2021Zoster (shingles) series for age 50+ (3 of 3)/, 04/20/MI (ht and wt on same day) for age 18+, 09/21/2018, 02/27/2018, Additional history exists Depression screening for age 12+5007/22/2023, 07/21/2023, 02/11/2021, Additional history existsCOVID-19 vaccine series ( season)2024 04/06/2024, 07/21/2023, 03/02/2021, Additional history existsLipids for age 45-7506/, 07/21/2023, 12/03/2020, Additional history exists Hepatitis B series for 19+Ikgqszsbs11/23/2014, 05/30/2013, 04/20/2013Hepatitis C screening for age 18-05Hrakkpvvy36/04/2021neumococcal series for age 50+ Mymdxjnhx97/21/2024, 02/11/2021 Procedures Procedure NamePriorityDate/TimeAssociated DiagnosisCommentsFOLIC ACIDRoutine 04/11/2025 11:50 AM CAR WORKER Anemia, unspecified type VITAMIN B64Obghufh52/11/2025 11:50 AM CAR WORKER Anemia, unspecified type IRON PLUS IRON BINDING ASVNigwbgn79/11/2025 11:50 AM CAR WORKER Anemia, unspecified type XIYXEWGYIZfffcga16/11/2025 11:50 AM CAR WORKER Hypomagnesemia CBC W PLT NO RKZMGyohdhf12/11/2025 11:50 AM CAR WORKER Anemia, unspecified type ITRAIPFEBAJydsgtf68/11/2025 11:50 AM CAR WORKER HARMONY (acute kidney injury) ECHO TTE COMPLETE WO ZWZMBMJVRkofkgh28/04/2025 11:35 AM CAR WORKER SOB (shortness of breath) Elevated brain natriuretic peptide (BNP) level Hypoxia LIPID PANEL W REFLEX MEASURED TQZJanoccc69/24/2025 3:44 PM CDT Mixed hyperlipidemia ANTI CYPRblymfu80/04/2021 5:05 PM CDT Need for hepatitis C screening test from Last 3 Months or Most Recently Relevant to Health Maintenance Results * IRON PLUS IRON BINDING CAP (04/11/2025 11:50 AM CAR WORKER)ComponentValueRef Range Test MethodAnalysis TimePerformed AtPathologist SignatureIRON, LTSEG73538 - 160 mcg/dL04/12/2025 6:15 AM CSTQUEST DIAGNOSTICSIRON BINDING WTFYFOOQ392213 - 450 mcg/dL (calc)04/12/2025 6:15 AM CSTQUEST DIAGNOSTICS% SLVSCUOUJU2044 - 45 % (calc)04/12/2025 6:15 AM CSTQUEST DIAGNOSTICSSpecimen (Source)Anatomical Location / LateralityCollection Method / VolumeCollection TimeReceived Time BloodBLOOD SPECIMEN / UnknownQuest Collect / Nfhcfff5604/11/2025 11:50 AM CAR WORKER 04/11/2025 11:50 AM CAR WORKER Narrative Authorizing ProviderResult TypeResult StatusErin Drea Robledo DOCHEMISTRYFinal ResultPerforming OrganizationAddressCity/State/ZIP CodePhone Number [facility] [address] [phone], * CBC W PLT NO DIFF (04/11/2025 11:50 AM CAR WORKER)ComponentValueRef RangeTest Method Analysis TimePerformed AtPathologist SignatureWHITE BLOOD CELL COUNT9.83.8 - 10.8 Thousand/uL04/12/2025 3:37 AM CSTQUEST DIAGNOSTICSRED BLOOD CELL COUNT 3.973.80 - 5.10 Million/uL04/12/2025 3:37 AM CSTQUEST DIAGNOSTICSHEMOGLOBIN 11.911.7 - 15.5 g/dL04/12/2025 3:37 AM CSTQUEST VCPQHBDEWQANXJSRLBOUF11.535.9 - 46.0 %04/12/2025 3:37 AM CSTQUEST XDOMIWXDCPDLSC76.581.4 - 101.7 fL 04/12/2025 3:37 AM CSTQUEST DGLXUGWFWUSXIH71.027.0 - 33.0 pg04/12/2025 3:37 AM CSTQUEST ANYJQESABTINTOL05.731.6 - 35.4 g/dL04/12/2025 3:37 AM CSTQUEST ZUVRPJNNPECKYP43.611.0 - 15.0 %04/12/2025 3:37 AM CSTQUEST DIAGNOSTICSPLATELET IEAPA494127 - 400 Thousand/uL04/12/2025 3:37 AM CSTQUEST KXGBIRHHHWIBTI90.5 7.5 - 12.5 fL04/12/2025 3:37 AM CSTQUEST DIAGNOSTICSSpecimen (Source) Anatomical Location / LateralityCollection Method / VolumeCollection Time Received TimeBloodBLOOD SPECIMEN / UnknownQuest Collect / Srocvge4204/11/2025 11:50 AM CST04/11/2025 11:50 AM CAR WORKER Narrative Authorizing ProviderResult TypeResult StatusJany Robledo DOHEMATOLOGYFinal ResultPerforming OrganizationAddLifecare Behavioral Health Hospitalty/State/ZIP CodePhone Number [facility] [address] [phone], * (ABNORMAL) CREATININE (04/11/2025 11:50 AM CAR WORKER)ComponentValueRef RangeTest MethodAnalysis TimePerformed AtPathologist SignatureCREATININE1.85(H)0.50 - 1.05 mg/dL04/12/2025 6:15 AM CSTQUEST TVHOVIDLWHIDQYA55(L)> OR = 60 mL/min/1.62d93904/12/2025 6:15 AM CSTQUEST DIAGNOSTICSSpecimen (Source) Anatomical Location / LateralityCollection Method / VolumeCollection Time Received TimeBloodBLOOD SPECIMEN / UnknownQuest Collect / Uyxfnlm8604/11/2025 11:50 AM CST04/11/2025 11:50 AM CAR WORKER Narrative Authorizing ProviderResult TypeResult StatusJany PINEDAHEMISTRYFinal ResultPerforming OrganizationAddLifecare Behavioral Health Hospitalty/State/ZIP CodePhone Number [employer] [address] [phone], * (ABNORMAL) MAGNESIUM (04/11/2025 11:50 AM CAR WORKER)ComponentValueRef RangeTest MethodAnalysis TimePerformed AtPathologist SignatureMAGNESIUM1.2(L)1.5 - 2.5 mg/dL04/12/2025 6:15 AM CSTQUEST DIAGNOSTICSSpecimen (Source)Anatomical Location / LateralityCollection Method / VolumeCollection TimeReceived Time BloodBLOOD SPECIMEN / UnknownQuest Collect / Uawfofy0304/11/2025 11:50 AM CAR WORKER 04/11/2025 11:50 AM CAR WORKER Narrative Authorizing ProviderResult TypeResult StatusJany PINEDAHEMISTRYFinal ResultPerforming OrganizationAddressCity/State/ZIP CodePhone Number [facility] [address] [place] [address], [place] [phone] * FOLIC ACID (04/11/2025 11:50 AM CAR WORKER)ComponentValueRef RangeTest MethodAnalysis TimePerformed AtPathologist SignatureFOLATE, SERUM9.9ng/mL04/12/2025 5:06 AM CSTQUEST DIAGNOSTICSComment: ? Reference Range Low: <3.4 ? Borderline: ?3.4-5.4 Normal: >5.4 Specimen (Source)Anatomical Location / LateralityCollection Method / Volume Collection TimeReceived TimeBloodBLOOD SPECIMEN / UnknownQuest Collect / Unknown 04/11/2025 11:50 AM CST04/11/2025 11:50 AM CAR WORKER Narrative Authorizing ProviderResult TypeResult StatusJany PINEDAHEMISTRYFinal ResultPerforming OrganizationAddressCity/State/ZIP CodePhone Number [facility] [address] [place] [address], * VITAMIN B12 (04/11/2025 11:50 AM CAR WORKER)ComponentValueRef RangeTest Method Analysis TimePerformed AtPathologist SignatureVITAMIN [id number] - 1100 pg/mL 04/12/2025 5:06 AM CSTQUEST DIAGNOSTICSSpecimen (Source)Anatomical Location / LateralityCollection Method / VolumeCollection TimeReceived TimeBloodBLOOD SPECIMEN / UnknownQuest Collect / Cuiridl3304/11/2025 11:50 AM CST04/11/2025 11:50 AM CAR WORKER Narrative Authorizing ProviderResult TypeResult StatusJany Robledo DOCHEMISTRYFinal ResultPerforming OrganizationAddressCity/State/ZIP CodePhone Number [facility] [address] [place] [address], [place] [phone] * ECHO TTE COMPLETE WO CONTRAST (04/04/2025 11:35 AM CAR WORKER)ComponentValueRef Range Test MethodAnalysis TimePerformed AtPathologist SignatureAORTIC VALVE MEAN PG6 mmHgEJECTION ROKBBKWS69%LVEDD3.4cmEJECTION KLTYKZIW24 - 65%Anatomical Region LateralityModalityUltrasoundSpecimen (Source)Anatomical Location / Laterality Collection Method / VolumeCollection TimeReceived Time04/04/2025 11:04 AM CAR WORKER Narrative 04/04/2025 11:57 AM CAR WORKER ECHOCARDIOGRAM BERNIE CAMPBELL ?Accession#: ?? [id number] : ?1955 70 years Study Date: ?? 04/04/2025 11:04:26 AM Gender: F ? BP: ? 139/76 mmHg Height: 163.00 cm ? BSA: ?1.52 m? Weight: 50.00 kg ?Tech: ? MJS ?Referring MD: PATRICIA NAVARRO Site: [facility] Reading Location: Mobile IP Patient Location: Inpatient. Procedure: 2D, Color Doppler and Spectral Doppler. Indication for study: S.O.B./ increased BNP/ Hypoxia Cardiac Rhythm: Normal sinus.Study quality: Technically limited. Imaging limitations: This study was subject to imaging limitations due to a prominent lung artifactand breast implant. Final Impressions: 1. Technically limited exam. 2. Normal left ventricular size, mildly increased wall thickness, normal global systolic function, calculated EF of 66 %. 3. Right ventricular cavity size is normal, global systolic RV function is normal. 4. Mildly enlarged left atrium. 5. The aortic valve is sclerotic, no stenosis and no regurgitation. 6. The mitral valve is normal, no mitral regurgitation. 7. Tricuspid valve is normal, regurgitation is not evident tricuspid regurgitation. 8. No pericardial effusion. Chamber Sizes and Function Normal left ventricular size, mildly increased wall thickness, normal global systolic function, calculated EF of 66 %. No resting regional wall motion abnormality visualized. Left atrial size is mildly enlarged. Right ventricular cavity size is normal, global systolic RV function is normal. The right atrium is normal. Right atrial area is 12 cm?. The pulmonary artery is of normal size and origin. The sinus of Valsalva is normal sized. The ascending aorta is normal sized. Valves, RV Pressures and Diastolic Function The aortic valve is sclerotic, no stenosis and no regurgitation. The mitral valve is normal in structure, no mitral regurgitation. Normal diastolic function. The tricuspid valve is normal in structure, regurgitation is not evident tricuspid regurgitation. The pulmonic valve is normal. No pulmonary r egurgitation. TTE images do not appear adequate for transcather intervention with patient supine. Masses, Effusion, Shunts There is no pericardial effusion. The inferior vena cava is normal sized, respiratory size variation greater than 50%. No left to right shunting was detected by limited color flow Doppler interrogation of the interatrial septum. MEASUREMENTS AND CALCULATIONS 2-D Measurements and LV Function: LVID (d) ? 3.4 cm Planimetered EF 66 % LVID (s) ? 2.2 cm LV FS% (2D) ? 35 % IVS (d) ?1.1 cm LVOT diameter ?? 2.1 cm LVPW (d) ? 1.1 cm HR ?89 bpm Ao Sinus ? 2.9 cm LA Vol index ?38 ml/m2 Ao Sinus ULN 3.6 cm RA area ? 12 cm? Asc Ao ? 3.4 cm RV Basal Diam ?? 3.3 cm Asc Ao ULN ?? 3.8 cm Diastology: Mitral ?Tissue Doppler E Peak 0.9 m/s ??e', Septum ? 0.08 m/s A Peak 0.8 m/s ??e', Lateral ?0.13 m/s E/A ?1.1 ?E/e' Average ?? 8.57 DT ? 261 msec Aortic Valve: Vmax ? 1.7 m/s ??REINIER (V) ?? 3.58 cm? VTI ?0.31 m ?? REINIER (I) ?? 3.99 cm? LVOT V max 1.7 m/s ??Max PG ?12 mmHg LVOT VTI ?? 0.34 m ?? Mean PG ?? 6 mmHg SV ? 123 ml ?? Dim Index 1.12 SV index ?? 81 ml/m? CO ?10.9 l/min ?CI ?7.2 l/min/m? Mitral Valve: MVA ?2.9 cm? MV P 1/2 76 msec Tricuspid Valve and estimated PA pressures: TAPSE 3.0 cm . This study was interpreted by an [facility] accredited facility. CC: HIM (med records) [facility], Med/Surg - IP [facility]. ??Final ?? Procedure Note Gisele Weiss, [facility] - 04/04/2025 ECHOCARDIOGRAM BERNIE CAMPBELL : 1955 70 years Study Date: 04/04/2025 11:04:26 AM Gender: F BP: 139/76 mmHg Height: 163.00 cm BSA: 1.52 m? Weight: 50.00 kg Tech: Mono Referring MD: PATRICIA NAVARRO Site: [facility] Reading Location: Mobile IP Patient Location: Inpatient. Procedure: 2D, Color Doppler and Spectral Doppler. Indication for study: S.O.B./ increased BNP/ Hypoxia Cardiac Rhythm: Normal sinus.Study quality: Technically limited. Imaging limitations: This study was subject to imaging limitations due toa prominent lung artifact and breast implant. Final Impressions: 1. Technically limited exam. 2. Normal left ventricular size, mildly increased wall thickness, normalglobal systolic function, calculated EF of 66 %. 3. Right ventricular cavity size is normal, global systolic RV functionis normal. 4. Mildly enlarged left atrium. 5. The aortic valve is sclerotic, no stenosis and no regurgitation. 6. The mitral valve is normal, no mitral regurgitation. 7. Tricuspid valve is normal, regurgitation is not evident tricuspid regurgitation. 8. No pericardial effusion. Chamber Sizes and Function Normal left ventricular size, mildly increased wall thickness, normalglobal systolic function, calculated EF of 66 %. No resting regional wallmotion abnormality visualized. Left atrial size is mildly enlarged. Rightventricular cavity size is normal, global systolic RV function is normal.The right atrium is normal. Right atrial area is 12 cm?. The pulmonaryartery is of normal size and origin. The sinus of Valsalva is normalsized. The ascending aorta is normal sized. Valves, RV Pressures and Diastolic Function The aortic valve is sclerotic, no stenosis and no regurgitation. Themitral valve is normal in structure, no mitral regurgitation. Normaldiastolic function. The tricuspid valve is normal in structure,regurgitation is not evident tricuspid regurgitation. The pulmonic valveis normal. No pulmonary regurgitation. TTE images do not appear adequatefor transcather intervention with patient supine. Masses, Effusion, Shunts There is no pericardial effusion. The inferior vena cava is normal sized, respiratory size variation greater than 50%. No left to right shunting was detected by limited color flow Doppler interrogation of the interatrialseptum. MEASUREMENTS AND CALCULATIONS 2-D Measurements and LV Function: LVID (d) 3.4 cm Planimetered EF 66 % LVID (s) 2.2 cm LV FS% (2D) 35 % IVS (d) 1.1 cm LVOT diameter 2.1 cm LVPW (d) 1.1 cm HR 89 bpm Ao Sinus 2.9 cm LA Vol index 38 ml/m2 Ao Sinus ULN 3.6 cm RA area 12 cm? Asc Ao 3.4 cm RV Basal Diam 3.3 cm Asc Ao ULN 3.8 cm Diastology: Mitral Tissue Doppler E Peak 0.9 m/s e', Septum 0.08 m/s A Peak 0.8 m/s e', Lateral 0.13 m/s E/A 1.1 E/e' Average 8.57 DT 261 msec Aortic Valve: Vmax 1.7 m/s REINIER (V) 3.58 cm? VTI 0.31 m REINIER (I) 3.99 cm? LVOT V max 1.7 m/s Max PG 12 mmHg LVOT VTI 0.34 m Mean PG 6 mmHg SV 123 ml Dim Index 1.12 SV index 81 ml/m? CO 10.9 l/min CI 7.2 l/min/m? Mitral Valve: MVA 2.9 cm? MV P 1/2 76 msec Tricuspid Valve and estimated PA pressures: TAPSE 3.0 cm . This study was interpreted by an [facility] accredited facility. CC: KAMILAH (med records) [facility], Med/Surg - IP [facility]. Final Authorizing ProviderResult TypeResult StatusDawn Nannette Navarro SUZIE ORDFinal Result * LIPID PANEL W REFLEX MEASURED LDL (10/23/2024 3:44 PM CDT)ComponentValueRef RangeTest MethodAnalysis TimePerformed AtPathologist SignatureCHOLESTEROL, [id number]<200 mg/dLQuest Circle BiologicsDL [id number]> OR = 50 mg/dL ParkWhizeTRIGLYCERIDES95<150 mg/dLQuest Circle BiologicseLDL-HXTVFCNNBWL26qe/dL (calc)ParkWhizeComment: Reference range: <100 Desirable range <100 mg/dL for primary prevention; <70 mg/dL for patients with CHD or diabetic patients with > or = 2 CHD risk factors. LDL-C is now calculated using the Tee-Jakob calculation, which is a validated novel method providing better accuracy than the Friedewald equation in the estimation of LDL-C. Tee SS et al. VERITO. 2013;310(19): 2918-9069 (http://education.[employer].Pili Pop/faq/NZT309) CHOL/HDLC RATIO2.5<5.0 (calc)ParkWhizSaint Joseph's HospitalBrii HDL [id number] <130 mg/dL (calc)ParkWhizeComment: For patients with diabetes plus 1 major ASCVD risk factor, treating to a non-HDL-C goal of <100 mg/dL (LDL-C of <70 mg/dL) is considered a therapeutic option. Specimen (Source)Anatomical Location / LateralityCollection Method / Volume Collection TimeReceived TimeBloodBLOOD SPECIMEN / [id number]/23/2024 3:44 PM CDT 10/23/2024 3:45 PM CDT Narrative Authorizing ProviderResult TypeResult StatusJany Drea Caballeroxler DOCHEMISTRYFinal ResultPerforming OrganizationAddressty/State/ZIP CodePhone Number [facility] [address] [place] [address], [facility] [address] [place] [address] * ANTI HCV (12/03/2020 5:05 PM CDT)ComponentValueRef RangeTest MethodAnalysis TimePerformed AtPathologist SignatureHEPATITIS C ANTIBODYNon-Reactive Non-Ruaokfmg98/05/2021 2:54 PM CDTALOWATONNA [facility] Comment:Antibodies to HCV not detected; does not exclude the possibility of exposure to HCV.Specimen (Source)Anatomical Location / LateralityCollection Method / VolumeCollection TimeReceived TimeBloodBLOOD SPECIMEN / Unknown Butterfly / [id number]/03/2020 5:05 PM CDT12/03/2020 5:14 PM CDT Narrative Authorizing ProviderResult TypeResult StatusMarisol Shanibrii Fox MDSEND OUTSFinal ResultPerforming OrganizationAddressCity/State/ZIP CodePhone Number [facility] [address] [place] [address], from Last 3 Months or Most Recently Relevant to Health Maintenance Insurance * Guarantor: Bernie Campbell TypeRelation to PatientDate of BirthPhone Billing AddressPersonal/WnzzqpVveb1955 [address] [place] [address] * Guarantor: BERNIE CAMPBELL TypeRelation to PatientDate of BirthPhone Billing [id number] NICOL EL[address]AB[address] [place] [address] Advance Directives * Full Code (Latest Code Status on File) Date ActivatedDate InactivatedComments01/29/2020 7:08 02/05/2020 2:20 PMQuestion AnswerCommentsCode Status Discussion:* Not Discussed Care Teams Team MemberRelationshipSpecialtyStart DateEnd Date Jany Robledo [place] [address] PCP - GeneralFamily Practice07/21/23 Nilam Hernandez, RN, BSN Care CoordinatorRegistered Nurse01/28/15
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
[2025-04-22 20:37] LABS: Appearance Urine Clear (Clear)
--- NOTE | 2025-04-22 20:42 | CRLHL7_ITS ---
For Patients: As a result of the Century Cures Act, medical imaging exams and procedure reports are released immediately into your electronic medical record. You may view this report before your referring provider. If you have questions, please contact your health care provider. Indication: Difficulty breathing. Technique: Chest 1 view. Comparison: Chest x-ray 04/03/2025, CTA chest 04/03/2025. Findings/Impression: Prominent bberx-[id number]-twyh-left airspace opacification, much of which likely secondary to underlying pulmonary fibrotic/reticular changes, however superimposed infectious process is not definitively excluded. Findings are grossly unchanged compared to prior imaging. No definite pleural effusion or pneumothorax. No acute osseous abnormality. Dictated by Santosh Cam MD @ 04/22/2025 9:20:57 PM (Electronically Signed)
[2025-04-22 20:45] LABS: Cannabinoid Screen Urine Negative (Negative)
[2025-04-22 20:46] LABS: Methamphetamines Screen Urine Negative (Negative); Tricyclic Antidepressant Urine Negative (Negative)
[2025-04-22] MEDS: FOLIC ACID 1 MG TABLET PO (21:32)
[2025-04-22] MEDS: IPRAT-ALBUT 0.5-2.5 MG/3 ML NEB 1 NEB IH (21:32)
[2025-04-22] MEDS: THIAMINE 100 MG TABLET PO (21:32)
[2025-04-22] MEDS: MULTIVITAMIN/MINERALS 1 TABLET 1 TAB PO (21:32)
[2025-04-22 21:41] LABS: Hematocrit* 26.3 % (33.0-51.0); Hemoglobin* 8.7 gm/dL (12.0-16.0); Immature Granulocytes Abs Auto 0.01 K/uL (0.00-0.30); Immature Granulocytes Pct Auto 0.1 %; Mean Corpuscular HGB Conc 33 gm/dL (32-36); Mean Corpuscular Hemoglobin 30 pg (26-34); Mean Corpuscular Volume 90 fL (80-100); RDW Coefficient of Variation % 13.9 % (11.5-15.5); Red Blood Count* 2.94 m/uL (4.00-5.20); White Blood Count* 6.82 K/uL (4.50-11.00)
[2025-04-22 21:53] LABS: Albumin* 4.0 g/dL (3.3-5.0); Chloride* 105 mmol/L (96-114); Sodium* 132 mmol/L (135-149)
[2025-04-22 21:54] LABS: Potassium* 3.6 mmol/L (3.6-5.1)
[2025-04-22 21:56] LABS: Anion Gap 16 mEq/L (7-15); Blood Urea Nitrogen* 22 mg/dL (7-30); Carbon Dioxide* 11 mmol/L (20-32); Creatinine* 2.0 mg/dL (0.5-1.5); Estimated Glomerular Filt Rate 27 ml/min
[2025-04-22 21:57] LABS: Alanine Aminotransferase* 17 U/L (4-35); Alkaline Phosphatase* 101 U/L (40-150); Aspartate Amino Transferase* 24 U/L (12-35); Bilirubin Total* 0.3 mg/dL (0.1-1.5); Calcium* 8.0 mg/dL (8.4-10.6); Ethanol* 0.18 % (0.01-0.03); Glucose* 117 mg/dL (60-115); Total Protein* 7.7 g/dL (6.0-8.3)
[2025-04-22 22:05] LABS: Lymphocytes Absolute Auto 1.20 K/uL (0.90-2.90); Slide Review Reflex No
[2025-04-22 22:18] LABS: PCR FLU A Negative PCR FLU A (Negative); PCR FLU B Negative PCR FLU B (Negative); PCR RSV Negative PCR RSV (Negative); SARS PCR* Negative SARS-CoV-2 (Negative)
[2025-04-22] MEDS: METHYLPREDNISOLONE SOD SUCC 62.5 MG/ML (125) IVP (22:26)
[2025-04-22] MEDS: cefTRIAXone 1 GM in 0.9 % SODIUM CHLORIDE Mini-bag 100 ML IVPB (22:28)
[2025-04-22] MEDS: DOXYCYCLINE HYCLATE 100 MG PO (22:43)
[2025-04-22] MEDS: MAGNESIUM IV 2 GM/50 ML PIGGYBACK IVPB (23:04)
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
[2025-04-23] VITALS (16 sets, daily range): BP systolic 134–170; BP diastolic 60–97; PULSE 71–97; RESP 16–20; TEMP 36.6–36.8; O2SAT 92–99; BMI 18.1
[2025-04-23] MEDS: ACETAMINOPHEN 325 MG TABLET 650 MG PO ×3 (01:36→22:47)
[2025-04-23] MEDS: IPRAT-ALBUT 0.5-2.5 MG/3 ML NEB 1 NEB IH ×4 (01:37→19:18)
[2025-04-23] MEDS: LIDOCAINE 5% PATCH 1 PATCH TRANSDERMA (01:44)
--- NOTE | 2025-04-23 05:38 | PC.NURSE ---
Shift note ([id number]): Patient admitted from ED at?2313.?Pt pleasant,?alert?and oriented.?Given PRN?Tylenol?for?headache.?Ambulating with stand by?assist?of one.?
[2025-04-23 06:24] LABS: Hematocrit* 26.1 % (33.0-51.0); Hemoglobin* 8.6 gm/dL (12.0-16.0); Immature Granulocytes Abs Auto 0.01 K/uL (0.00-0.30); Immature Granulocytes Pct Auto 0.2 %; Mean Corpuscular HGB Conc 33 gm/dL (32-36); Mean Corpuscular Hemoglobin 30 pg (26-34); Mean Corpuscular Volume 90 fL (80-100); RDW Coefficient of Variation % 14.0 % (11.5-15.5); Red Blood Count* 2.91 m/uL (4.00-5.20); White Blood Count* 4.59 K/uL (4.50-11.00)
[2025-04-23 06:50] LABS: Lymphocytes Absolute Auto 0.20 K/uL (0.90-2.90); Slide Review Reflex No
[2025-04-23 06:55] LABS: Chloride* 107 mmol/L (96-114); Sodium* 133 mmol/L (135-149)
[2025-04-23 06:56] LABS: Potassium* 4.3 mmol/L (3.6-5.1)
[2025-04-23 06:59] LABS: Anion Gap 14 mEq/L (7-15); Blood Urea Nitrogen* 24 mg/dL (7-30); Calcium* 8.1 mg/dL (8.4-10.6); Carbon Dioxide* 12 mmol/L (20-32); Creatinine* 1.9 mg/dL (0.5-1.5); Est. Creatinine Clearance* 25.15; Estimated Glomerular Filt Rate 28 ml/min; Glucose* 215 mg/dL (60-115)
[2025-04-23 07:15] LABS: Procalcitonin* 0.24 ng/mL (<0.50)
[2025-04-23] MEDS: MAGNESIUM IV 2 GM/50 ML PIGGYBACK IVPB (08:10)
--- NOTE | 2025-04-23 09:40 | P.NUTASMT_ITS ---
Hospital Nutrition Assessment Patient Data Patient Gender: Female Patient Age: 70 Height: 165.1 cm (5ft 5in) Weight: 49.26 kg (108 lb 5.9 oz) Body Mass Index: 18.1 Weight Calculations [place] Body Weight (lbs): 125.00 [place] Body Weight (kg): 56.70 Percent of [place] Body Weight: 87 Adjusted Body Weight (lbs): 120.90 Adjusted Body Weight (kg): 54.84 Basal Energy Expenditure (BEE): 1108.96 Basal Energy Expenditure (BEE) Adjusted Weight: 1162.33 Activity/Stress Factors Injury Factor/Activity Factor Value: 1.3 Total Energy Requirements Kcal requirements (current wt): 1441.648 Kcal requirements (adj wt): 1511.029 Protein Need (current wt): 1.2 Total Protein (current wt): 59.112 Protein Need (adj wt): 1.2 Total Protein (adj wt): 65.808 Fluid Need (current wt): 30 Total Fluid (current wt): 1477.800 Fluid Need (adj wt): 30 Total Fluid (adj wt): 1645.20 Nutrition Assessment Diet Order: Regular Food Modified for Dysphagia: 7-Regular Liquid Modified for Dysphagia: 0-Thin Are you following a diet prescribed by a doctor: No Are you following a special diet: No Allergies: NKFA Appetite Prior to Admission: Good Appetite and Intake: No intakes yet this admit Supplement and/or Snacks: Enlive ordered by MD JASON Hx Appetite Changes: No Hx Weight Loss: No Hx Weight Gain: No Nausea: No Vomiting: No Diarrhea: No Hx Constipation: No Chewing Difficulty: No Swallowing Difficulty: No Pressure Ulcer: No Diagnosis/Symptom or Procedure: Low magnesium, Dyspnea, pneumonia Clinical History: Active Problems Dyspnea on exertion (Acute) R06.09 Bleeding external hemorrhoids (Acute) K64.4 CKD (chronic kidney disease) (Chronic) N18.9 Diabetes mellitus type 2 in nonobese (Chronic) E11.9 Hypertension (Acute) I10 COPD (chronic obstructive pulmonary disease) (Acute) J44.9 Pneumonia (Acute) J18.9 Hypomagnesemia (Acute) E83.42 Severe protein-calorie malnutrition (Acute) E43 Weight loss, unintentional (Acute) R63.4 Metabolic acidosis (Acute) E87.20 Alcohol use disorder (Acute) F10.90 Anemia (Chronic) D64.9 Hyponatremia (Acute) E87.1 Current Living Situation: Lives at home with . Medications Medications: reviewed. Lab Results Lab Results: reviewed. 04/22/25: Magnesium 0.8 (L) Assessment/Plan PES Statement: Underweight BMI related to low oral intakes as evidenced by BMI of 18.1 kg/m2. Nutritional Assessment Summary: RDN with nutrition screen related to positive MST score and underweight BMI. Patient admitted with dyspnea, low magnesium, and underweight BMI. Per MD note, diagnosed with severe protein-calorie malnutrition with outpatient monitoring. No intakes yet since admit. MD ordered Enlive TID - pt refused x1 since arrival. Of note, Patient has a history of alcohol abuse. Drinks about 4 glasses of wine daily. RDN visited with patient whom reports a good appetite recently. She states her weight typically fluctuates about 8 lbs. She has not noted true weight loss recently. She typically eats about 2 meals daily. She is interested in including protein supplements at home. I encouraged her to do this as this may help stabilize weight, or gain a little, and ensure she is reaching her estimated daily protein and calorie intake. I offered further diet education related to underweight BMI, however she declined at this time. Discharge Plan-Living Situation: Home with . Goals: Adequate oral intakes of 50%+. No s/s dehydration. Plan/Recommendation: Regular diet per MD order. Offer Ensure Enlive TID per MD order. RDN will continue to monitor and follow-up prn. Malnutrition Assessment Current Energy Intake: Unable To Determine Weight Changes: Unable To Determine Recommended Malnutrition Diagnosis: Severe Protein-Calorie Malnutrition and Further Physical Evaluation Required By MD To Determine In The Context: Chronic Illness Based On: Inadequate Energy Intakes
[2025-04-23] MEDS: ATORVASTATIN CALCIUM 10 MG TABLET 20 MG PO (10:09)
[2025-04-23] MEDS: FLUOXETINE HCL 20 MG CAPSULE 40 MG PO (10:09)
[2025-04-23] MEDS: MULTIVITAMIN/MINERALS 1 TABLET 1 TAB PO (10:09)
[2025-04-23] MEDS: MAGNESIUM OXIDE 400 MG TABLET PO (10:09)
[2025-04-23] MEDS: THIAMINE 100 MG TABLET PO (10:10)
[2025-04-23] MEDS: AMLODIPINE 5 MG TABLET PO (10:11)
[2025-04-23] MEDS: FOLIC ACID 1 MG TABLET PO (10:11)
[2025-04-23] MEDS: FAMOTIDINE 20 MG TABLET PO ×2 (10:14→20:52)
[2025-04-23] MEDS: SODIUM CHLORIDE 0.9 % (FLUSH) 10 ML SYRINGE 5 ML IVF ×2 (10:15→20:52)
[2025-04-23] MEDS: DOXYCYCLINE HYCLATE 100 MG PO ×2 (10:47→20:52)
--- NOTE | 2025-04-23 11:08 | PC.SOCIAL ---
Addendum entered by TIFFANY Rawls 04/23/25 16:11: Discharge planning: power lineworker met with the pt and assisted her with [facility] an [facility] power lineworker placed it in the outgoing mail to be mailed. power lineworker also provided the pt with a list of agencies that provide housing resources. Pt was thankful for the assistance. Social work to follow-up as needed. Addendum entered by TIFFANY Rawls 04/23/25 15:20: Social work consult: power lineworker attempted to meet with the pt again this afternoon to complete the [facility] application, but her was visiting and the pt asked this worker to come back. power lineworker will attempt to see her one more time before this worker's shift is over otherwise this worker will just leave the housing application with the pt. Social work to follow-up as needed. Original Note: Social work consult: power lineworker met with the pt at her request to discuss housing options. Pt states that she might want to move out of her house that she shares with her , but she is not completely sure yet. Pt states that she went to stay with her son and her [id number] for awhile and ended up moving back in with her because her [id number] is going through menopause and keeps the house too cold for the pt to live in. Pt actually stated that she thinks she got pneumonia from her son's house because it is so cold in there. power lineworker told the pt about several senior apartment complexes in [facility] that offer subsidized rent, as the pt states she only receives about $800.00 a month from Social Security. Pt is interested in the [facility] apartments on the [facility] in [place]. This worker plans to return to the pt's room this afternoon to assist her with filling out the application for the [facility] apartments on the [facility]. Social work to follow-up as needed.
--- NOTE | 2025-04-23 11:13 | RESP.RT ---
Patient sitting up n chair, on room air, SaO2 check 98%, breathing regular/easy shallow. BBS, right lung de diminished over Left lung de, fine/coarse crackles through our, expiratory wheeze noted mainly in upper lobes, crackles and wheeze clear with good forceful cough. PEP with Aerobika, Patient does fair exhalation with fair chest shake noted. Exhalation promoted good productive cough, patient swallows most of secretions. HX of lung CA 2015.
[2025-04-23] MEDS: INSULIN ASPART 100 UNIT/ML SUBCUT ×3 (12:25→21:00)
--- NOTE | 2025-04-23 15:21 | PM.IMPN1 ---
Assessment and Plan Assessment and plan (1) Hypomagnesemia: Problem comment: - Suspect this is also one of the main causes of her overall condition at this point - Suspect this is caused mainly by alcohol use, possibly exacerbated by PPI. Hold PPI. I have again counseled patient to refrain from alcohol, noting that her body has dangerously low levels of magnesium due to alcohol use and it is no longer safe for her to drink any amount of alcohol. She demonstrated understanding and said I will work on it. - Replace IV. Avoid QT prolonging medications. Monitor on cardiac telemetry. Status: Acute (2) Alcohol use disorder: Problem comment: - HERSON 0.18 on admission. Patient reports hardly anything to drink - Poor insight/judgment with regards to this disease - Start CIWA protocol Status: Acute (3) Severe protein-calorie malnutrition: Problem comment: - Ongoing outpatient monitoring. Patient denies nutritional problems at home - nutritional supplements while here Status: Acute (4) CKD (chronic kidney disease): Problem comment: - Stage 4 - Cr likely at a new baseline of 1.8-2. Monitor Status: Chronic (5) Pneumonia: Problem comment: -CXR unchanged, consider CT chest if no improvement - no hypoxia, WBC and VS reassuring - Ceftriaxone and doxycycline Status: Acute (6) COPD (chronic obstructive pulmonary disease): Problem comment: -acute on chronic exacerbation with JAIN and wheezing, no hypoxia -treat with IV Magnesium, steroids, antibiotics, nebs, RT evaluation -quit smoking in 2014 with dx of lung cancer Status: Acute (7) Dyspnea on exertion: Problem comment: - Had an ECHO earlier this month that was reassuring, EF 66% - Has known COPD and pulmonary fibrosis, which I suspect are the main underlying causes, treat with prednisone burst, pulmonology as outpatient - possible superimposed pneumonia, treat with antibiotics. Status: Acute (8) Diabetes mellitus type 2 in nonobese: Problem comment: -most recent A1c 4.8. Last A1c > 7 was back in 2012 Status: Chronic (9) Hypertension: Problem comment: -Continue holding lisinopril in setting of worsening CKD Status: Acute (10) Hyponatremia: Problem comment: - 132, at baseline of 130-133 - Suspect this is due to alcohol use, malnutrition Status: Acute (11) Pulmonary fibrosis: Problem comment: -CT from earlier this month showed worsening subpleural predominant reticulation with interval development of mosaic attenuation/interstitial thickening, greater in the right lung likely a combination of worsening interstitial lung disease/pulmonary fibrosis -outpatient follow-up with pulmonology Status: Acute (12) Weight loss, unintentional: Problem comment: Eating well during this hospital stay. Status: Acute (13) Metabolic acidosis: Problem comment: - multifactorial: alcohol abuse, poor nutrition, stage 4 kidney disease. Outpatient follow-up. Status: Acute (14) Anemia: Problem comment: - hemoglobin 8.7, stable recently, this is up from 8.2 and 8.0 in March - likely combination of poor nutrition, alcoholism, chronic kidney disease; also bleeding hemorrhoids - Hold aspirin, avoid pharmacologic VTE prophylaxis Status: Chronic (15) Bleeding external hemorrhoids: Status: Acute Subjective Date Seen: 04/23/25 Interval history: Daily Progress Note - Hospital Medicine #: 2 CC: Alcohol use disorder, acute intoxication, hypomagnesemia, nutrition, chronic lung disease 24 HOUR UPDATE: Stable overnight. Dyspneic with any exertion. Hemodynamically stable. On room air Notable Labs, Micro, Rads, Interventions: CBC reflects a normal white blood cell count. , her known baseline anemia. Normal platelets. Her chemistries reflect her baseline chronic hyponatremia, her magnesium has improved to 1.3 from 0.8, creatinine is 1.9 which is likely her new baseline, She was given Mag supplementation, started on prednisone, Rocephin, doxycycline. See was have not been elevated, most recently 82. We started the above vitamin and nutritional supplements given her depleted state. Objective: sarcopenic, older than stated age Vitals: reviewed see above Lungs: fine crackles; productive cough Cardiac: S1S2. Disposition/Potential discharge - home with Today I spent 50 minutes seeing the patient, reviewing Expanse and EPIC notes/diagnostics, discussing the care plan with our care time that includes social work, PT/OT, pharmacy, RT, custodial and documenting my impressions and plan in the medical record. Exam Const: Vital Signs, click to edit/add: Vital Signs - 24 hr 04/22/25 20:08 04/22/25 21:59 04/22/25 22:00 Temperature 97.9 F Pulse Rate 92 85 Pulse Rate [Pulse Oximeter] 82 Respiratory Rate 20 Blood Pressure Blood Pressure [Le ft Arm] Blood Pressure [Le ft Upper Arm] 154/81 H Pulse Oximetry 95 99 100 Oxygen Delivery Me thod Room Air 12/22/25 22:04 04/22/25 22:22 04/22/25 22:27 Temperature Pulse Rate 79 91 83 Pulse Rate [Pulse Oximeter] Respiratory Rate 18 Blood Pressure 121/71 Blood Pressure [Le ft Arm] Blood Pressure [Le ft Upper Arm] Pulse Oximetry 100 88 97 Oxygen Delivery Me thod Room Air 04/22/25 22:30 04/22/25 22:31 04/22/25 22:32 Temperature Pulse Rate 82 81 78 Pulse Rate [Pulse Oximeter] Respiratory Rate Blood Pressure 138/61 Blood Pressure [Le ft Arm] Blood Pressure [Le ft Upper Arm] Pulse Oximetry 97 97 95 Oxygen Delivery Me thod 04/22/25 22:34 04/22/25 23:02 04/22/25 23:24 Temperature 97.9 F Pulse Rate Pulse Rate [Pulse Oximeter] 81 Respiratory Rate 16 20 Blood Pressure 139/82 Blood Pressure [Le ft Arm] 146/66 H Blood Pressure [Le ft Upper Arm] Pulse Oximetry 97 90 Oxygen Delivery Me thod Room Air Room Air 04/22/25 23:24 04/23/25 00:01 04/23/25 02:49 Temperature 97.9 F 98.1 F Pulse Rate Pulse Rate [Pulse Oximeter] 81 81 Respiratory Rate 20 16 Blood Pressure Blood Pressure [Le ft Arm] 146/66 H 134/60 Blood Pressure [Le ft Upper Arm] Pulse Oximetry 92 92 92 Oxygen Delivery Me thod Room Air Room Air Room Air 04/23/25 02:59 04/23/25 07:00 04/23/25 07:00 Temperature 98.1 F Pulse Rate Pulse Rate [Pulse Oximeter] 81 71 Respiratory Rate 16 20 20 Blood Pressure Blood Pressure [Le ft Arm] 134/60 Blood Pressure [Le ft Upper Arm] Pulse Oximetry 92 98 Oxygen Delivery Me thod Room Air Room Air 04/23/25 07:55 04/23/25 07:58 04/23/25 10:42 Temperature 97.9 F 97.9 F 97.8 F Pulse Rate Pulse Rate [Pulse Oximeter] 81 81 71 Respiratory Rate 18 18 20 Blood Pressure Blood Pressure [Le ft Arm] 142/70 H 142/70 H 153/97 H Blood Pressure [Le ft Upper Arm] Pulse Oximetry 99 99 96 Oxygen Delivery Me thod Room Air Room Air Room Air 04/23/25 10:44 12/23/25 11:10 04/23/25 13:04 Temperature 97.8 F Pulse Rate 95 Pulse Rate [Pulse Oximeter] 71 Respiratory Rate 20 Blood Pressure Blood Pressure [Le ft Arm] 153/97 H Blood Pressure [Le ft Upper Arm] Pulse Oximetry 96 98 Oxygen Delivery Me thod Room Air Room Air 04/23/25 14:18 Temperature 98.1 F Pulse Rate Pulse Rate [Pulse Oximeter] 95 Respiratory Rate 18 Blood Pressure Blood Pressure [Le ft Arm] 160/77 H Blood Pressure [Le ft Upper Arm] Pulse Oximetry 95 Oxygen Delivery Me thod Room Air Labs Labs: Laboratory Results - last 24 hr 04/22/25 04/22/25 04/22/25 20:30 20:46 21:00 WBC RBC Hgb Hct MCV MCH MCHC RDW Coeff of Latoya Plt Count Neut % (Auto) Lymph % (Auto) [place] % (Auto) Eos % (Auto) Baso % (Auto) Neut # (Auto) Lymph # (Auto) [place] # (Auto) Eos # (Auto) Baso # (Auto) Abs Immat Gran (auto) Imm/Tot Granulo (auto) Sodium Potassium Chloride Carbon Dioxide Anion Gap BUN Creatinine Estimated Creat Clear Estimated GFR Glucose Calcium Magnesium Total Bilirubin AST ALT Alkaline Phosphatase Troponin I POC Troponin I High Sensi 5.5 C-Reactive Protein Total Protein Albumin Procalcitonin Urine Color Yellow Urine Appearance Clear Urine pH 5.5 Ur Specific [place] <= 1.005 Urine Protein 2+ A Urine Glucose (UA) Trace A Urine Ketones Negative Urine Blood Trace-lysed A Urine Nitrite Negative Urine Bilirubin Negative Urine Urobilinogen 0.2 Ur Leukocyte Esterase Negative Urine RBC 0-2 Urine WBC 0-2 Ur Squamous Epith Cells None Urine Bacteria None Urine Opiates Screen Negative Ur Buprenorphine Scrn Negative Ur Oxycodone Screen Negative Urine Methadone Screen Negative Ur Barbiturates Screen Negative U Tricyclic Antidepress Negative Ur Phencyclidine Scrn Negative Ur Amphetamines Screen Negative U Methamphetamines Scrn Negative U Benzodiazepines Scrn Negative Urine Cocaine Screen Negative U Marijuana (THC) Screen Negative Ur Drug Screen Comment See Note Ethyl Alcohol SARS-CoV-2 (PCR) Influenza Type A (PCR) Influenza Type B (PCR) RSV (PCR) Lab Acknowledgement Test Added 04/22/25 04/23/25 21:30 05:40 WBC 6.82 4.59 RBC 2.94 L 2.91 L Hgb 8.7 L 8.6 L Hct 26.3 L 26.1 L MCV 90 90 MCH 30 30 MCHC 33 33 RDW Coeff of Latoya 13.9 14.0 Plt Count 325 311 Neut % (Auto) 71.0 93.3 H Lymph % (Auto) 17.2 L 5.4 L [place] % (Auto) 8.4 0.7 Eos % (Auto) 2.9 0.2 Baso % (Auto) 0.4 0.2 Neut # (Auto) 4.84 4.30 Lymph # (Auto) 1.20 0.20 L [place] # (Auto) 0.60 0.00 Eos # (Auto) 0.20 0.01 Baso # (Auto) 0.03 0.01 Abs Immat Gran (auto) 0.01 0.01 Imm/Tot Granulo (auto) 0.1 0.2 Sodium 132 L 133 L Potassium 3.6 4.3 Chloride 105 107 Carbon Dioxide 11 L 12 L Anion Gap 16 H 14 BUN 22 24 Creatinine 2.0 H 1.9 H Estimated Creat Clear 25.15 Estimated GFR 27 28 Glucose 117 H 215 H Calcium 8.0 L 8.1 L Magnesium 0.8 L* 1.3 L Total Bilirubin 0.3 AST 24 ALT 17 Alkaline Phosphatase 101 Troponin I < 0.01 POC Troponin I High Sensi C-Reactive Protein 2.8 H Total Protein 7.7 Albumin 4.0 Procalcitonin 0.24 Urine Color Urine Appearance Urine pH Ur Specific [place] Urine Protein Urine Glucose (UA) Urine Ketones Urine Blood Urine Nitrite Urine Bilirubin Urine Urobilinogen Ur Leukocyte Esterase Urine RBC Urine WBC Ur Squamous Epith Cells Urine Bacteria Urine Opiates Screen Ur Buprenorphine Scrn Ur Oxycodone Screen Urine Methadone Screen Ur Barbiturates Screen U Tricyclic Antidepress Ur Phencyclidine Scrn Ur Amphetamines Screen U Methamphetamines Scrn U Benzodiazepines Scrn Urine Cocaine Screen U Marijuana (THC) Screen Ur Drug Screen Comment Ethyl Alcohol 0.18 H SARS-CoV-2 (PCR) Negative SARS-CoV-2 Influenza Type A (PCR) Negative PCR FLU A Influenza Type B (PCR) Negative PCR FLU B RSV (PCR) Negative PCR RSV Lab Acknowledgement
--- NOTE | 2025-04-23 18:00 | PC.NURSE ---
shift note: Pt is AOx4. Pt is pleasant & cooperative w/ cares. CIWA <3. Pt education provided by RN on nutrition , medications & mobility. Pt tolerating regular diet. Pt is up to chair for meals & SBA w / BG & walker to BR. Tolerating RA. in to visit w/ pt & supportive bedside.
[2025-04-23] MEDS: cefTRIAXone 1 GM in 0.9 % SODIUM CHLORIDE Mini-bag 100 ML IVPB (20:51)
[2025-04-24] MEDS: IPRAT-ALBUT 0.5-2.5 MG/3 ML NEB 1 NEB IH ×2 (01:24→06:32)
[2025-04-24] MEDS: LIDOCAINE 5% PATCH 1 PATCH TRANSDERMA (01:24)
[2025-04-24 03:30] VITALS: BP 176/84; PULSE 85; RESP 20; TEMP 36.7; O2SAT 98
--- NOTE | 2025-04-24 06:47 | PC.NURSE ---
End of shift report [id number]:?VSS. Afebrile. On RA. At around 2300 pt reported medial chest soreness, MD Yu notified and EKG completed showing NSR with prolonged QT, PRN Tylenol offered and given with relief. Pt has a lidocaine patch intact in the middle of her chest.?Pt CIWAs ranged from 1-5. Pt took a walk this shift to complete her 5 walks per day. Pt ambulates 1A, GB, W.?Pt is resting in bed, call light within reach.?
[2025-04-24 07:00] VITALS: BP 173/95; PULSE 81; RESP 20; O2SAT 97
[2025-04-24] MEDS: MULTIVITAMIN/MINERALS 1 TABLET 1 TAB PO (09:25)
[2025-04-24] MEDS: ATORVASTATIN CALCIUM 10 MG TABLET 20 MG PO (09:25)
[2025-04-24] MEDS: FLUOXETINE HCL 20 MG CAPSULE 40 MG PO (09:25)
[2025-04-24] MEDS: FOLIC ACID 1 MG TABLET PO (09:25)
[2025-04-24] MEDS: FAMOTIDINE 20 MG TABLET PO (09:25)
[2025-04-24] MEDS: AMLODIPINE 5 MG TABLET PO (09:26)
[2025-04-24] MEDS: DOXYCYCLINE HYCLATE 100 MG PO (09:26)
[2025-04-24] MEDS: MAGNESIUM OXIDE 400 MG TABLET PO (09:26)
[2025-04-24] MEDS: THIAMINE 100 MG TABLET PO (09:26)
[2025-04-24 11:00] VITALS: O2SAT 97
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
== END 2025-04-24 14:45 | disposition home or self-care (01) | DRG 640 ==
LOC: ED 20:48 → MEDSURG 23:08
PROVIDERS: Admitting Provider Family Medicine; Emergency Provider Family Medicine; PCP Family Medicine; Visit Provider Family Medicine
DX: E83.42 Hypomagnesemia (principal); E43 Unspecified severe protein-calorie malnutrition; J18.9 Pneumonia, unspecified organism; J44.0 Chronic obstructive pulmonary disease with (acute) lower respiratory infection; J44.1 Chronic obstructive pulmonary disease with (acute) exacerbation; N18.4 Chronic kidney disease, stage 4 (severe); E87.20 Acidosis, unspecified; Z68.1 Body mass index [BMI] 19.9 or less, adult; F10.120 Alcohol abuse with intoxication, uncomplicated; I12.9 Hypertensive chronic kidney disease with stage 1 through stage 4 chronic kidney disease, or unspecified chronic kidney disease; E11.22 Type 2 diabetes mellitus with diabetic chronic kidney disease; D64.9 Anemia, unspecified; R94.31 Abnormal electrocardiogram [ECG] [EKG]; J84.10 Pulmonary fibrosis, unspecified; K64.4 Residual hemorrhoidal skin tags; Z85.118 Personal history of other malignant neoplasm of bronchus and lung; Z87.891 Personal history of nicotine dependence; Z88.0 Allergy status to penicillin; Z91.040 Latex allergy status; Z79.899 Other long term (current) drug therapy; Y90.6 Blood alcohol level of 120-199 mg/100 ml
CPT/HCPCS: 36415; 71045; 80048; 80053; 80306; 81001; 82077; 82962; 83735; 84145; 84484; 85025; 86140; 87631; 94664; 94761; 97116; 97161; 97165; 97530; 99285; 99291; A9153; A9270; J0696; J2919; J3475; J7030; J7512